=== PATIENT | male | born 1955 | race Two or more races ===

== ENCOUNTER 2025-01-17 06:13 | Inpatient (IN) | payer OTHER ==
[~2025-01-17] VITALS: Ht 190.5 cm; Wt 108.9 kg
[2025-01-17] VITALS (7 sets, daily range): BP systolic 95–112; BP diastolic 64–71; PULSE 77–85; RESP 15–20; TEMP 97.6–98.6; O2SAT 92–98
[2025-01-17] MEDS: TRANEXAMIC ACID 20 ML ONE (05:57)
[2025-01-17] MEDS: KETOROLAC TROMETH 30 MG/ML 1ML VIAL ONE (05:57)
[2025-01-17] MEDS: VANCOMYCIN HCL 1000 MG VL ONE (05:57)
[2025-01-17] MEDS: ceFAZolin 2 GM/D5W100ml 100 ML IV ONE (06:03)
[~2025-01-17 06:13] MED LIST: ACET-1304 PO; ASPI325T6 PO; BACL10TA PO; ISOS1TAB28 PO; MAGN400T40 OR; METO25TA36 PO; MULT-1018 OR; NIAC500T89 OR; PAR20T PO; ROSU20TA14 PO; [UNRECOGNIZED DRUG - CODE] PO; [UNRECOGNIZED DRUG - CODE] SC
[2025-01-17] MEDS: CEFEPIME 1GM/ 50ML 50 ML IV ONE (06:19)
[2025-01-17] MEDS: BUPIVACAINE 0.25% INJ 50ML VIAL ONE (06:19)
[2025-01-17] MEDS ORDERED: EPINEPHrine HCL 1 MG/1 ML AMP ONE (06:23)
[2025-01-17] MEDS ORDERED: DexAMETHasone SOD PHOS 10MG/1ML VIAL INJ ONE (06:23)
[2025-01-17] MEDS ORDERED: ONDANSETRON HCL 4 MG/2 ML VIAL ONE (06:23)
[2025-01-17] MEDS ORDERED: KETOROLAC TROMETH 30 MG/ML 1ML VIAL ONE (06:23)
[2025-01-17] MEDS ORDERED: PROPOFOL 10 MG/ML 20 ML IV ONE ×2 (06:24→07:39)
[2025-01-17] MEDS ORDERED: GLYCOPYRROLATE 0.2 MG/ML 1ML VIAL ONE (06:24)
[2025-01-17] MEDS ORDERED: KETAMINE 50mg/ML 1ml syringe ONE (06:25)
[2025-01-17] MEDS: GABAPENTIN 400 MG CAP PO ONE (06:45)
[2025-01-17] MEDS: ACETAMINOPHEN IV 1000 MG/100ML (10MG/ML) IV ONE (06:45)
[2025-01-17] MEDS: CELECOXIB 100 MG CAP PO ONE (06:45)
[2025-01-17] MEDS ORDERED: ePHEDrine SULFATE 50 MG/ML AMP ONE (06:46)
[2025-01-17] MEDS ORDERED: MORPHINE SULF PF 5 MG/10 ML VIAL ONE (06:58)
[2025-01-17] MEDS ORDERED: LIDOCAINE 1% INJ PF 5ML AMP ONE (07:28)
[2025-01-17] MEDS ORDERED: ONDANSETRON HCL 4 MG/2 ML VIAL IV PRN ×2 (09:30→10:15)
--- NOTE | 2025-01-17 09:40 | DVHOP2 ---
Operative Report - 2 Report Details Date: 01/17/25 Preop Diagnosis: Right hip degenerative arthritis Postop Diagnosis: Right hip degenerative arthritis Surgeon: Luis Robb MD Bag Machine Operator Helper: Silvia FRANCO Anesthesiologist: Greg Dong CRNA Anesthesia: Regional Drains: Jagruti closed wound suction Implant: DonJoy size 13 stem 0 neck length with 54 acetabular shell, one acetabular screw and flat liner Consent: The patient was informed of the risks and benefits of the procedure. These include but are not limited to complications of anesthesia, postoperative infection, incomplete relief of symptoms, recurrence of symptoms, damage to blood vessels, nerves and tendons, deep venous thrombosis, pulmonary embolism and possible need for repeat surgery in the future. Complications: None Estimated Blood Loss: 200 cc Fluids: See anesthesia record Findings: Denuded cartilage with eburnated bone, osteophytes Indications for Surgery: Right hip degenerative arthritis with severe pain and functional impairment despite nonoperative management Name of Procedure Performed Right total hip arthroplasty Procedure Details Procedure Details: The patient was brought to the operating room and given spinal anesthetic with adequate analgesia obtained. The patient was positioned lateral decubitus with the operative side up, stabilized with hip positioners. Axillary roll applied and lower extremities well-padded. Preop patient received IV Ancef, cefepime and IV tranexamic acid. Surgical timeout was performed verifying patient, laterality and procedure. The hip and lower extremity were prepped and draped in sterile fashion. Incision was made over the greater trochanter. Subcutaneous dissection and hemostasis were performed with Bovie and aqua mantis. I identified the fascia which was incised with Bovie and Charnley retractor inserted. I identified the gluteus medius that was split at the junction of its anterior and middle thirds with Bovie then incised off the anterior greater trochanter. I incised the anterior gluteus minimus which was elevated off the capsule. I elevated the reflected head of the rectus. I then performed anterior capsulectomy with Bovie. I extended capsular incision posterior medially and superior laterally. The head was dislocated. Femoral neck cut was made with saw and head removed. Head diameter was calipered on the back table. I adjusted retractors to expose the acetabulum. I circumferentially removed labral tissue with Bovie. I removed foveal tissue with Bovie, curette and rongeur. I then began reaming sequentially paying attention to inclination and version as I went. I trialed then tapped in the 54 acetabular shell. It was a little bit loose so I then drilled one of the superior holes, checked depth with depth gauge, and inserted a 20 mm acetabular screw with good bite achieved. I then brought up the flat liner which was spun to make sure there was no soft tissue entrapment then tapped in and stability verified. I then brought my attention to the proximal femur. The leg was placed in the sterile bag anteriorly. I cleaned up soft tissue at the greater trochanter shoulder with Bovie. I then used a rongeur to clip the lateral neck. I then used a box osteotome, canal finder and lateralizing rasp. I sequentially broached to size 13. I revised the femoral neck cut with calcar planer. I trialed which required using a minus four neck length. X-rays were obtained which verified good acetabular positioning as well as femoral stem size however did appear a bit long. The hip was dislocated and I removed the stem and head trials then tapped the broach down a little bit further used a calcar planer to revise the neck cut length then again reduced the hip and found it stable. I tapped in the femoral implant with good fixation achieved. I again trialed and decided on the 0 neck length for adequate stability. I cleaned and dried the Ray taper and tapped on the ceramic head. The hip was again reduced and tested for stability which was good. I irrigated with xperience. I placed a 2 grams of vancomycin in the deep and superficial wound. I repaired the minimus and medius to the anterior greater trochanter with #[5] FiberWire in running fashion . I oversewed the repair with 0 Vicryl. I repaired the fascia with #1 Ethibond interrupted [id number]. Deep subcutaneous tissue was closed with 0 Vicryl. Superficial subcutaneous tissue was closed with 2-0 Vicryl. The skin was closed with zeynep. I then applied the Jagruti closed wound suction. Patient tolerated the procedure well and was brought to the recovery room in stable condition. Condition Stable Disposition Still a Patient LUIS ROBB MD Jan 17, 2025 09:40
[2025-01-17] MEDS ORDERED: BACLOFEN 10 MG TAB PO PRN (09:45)
[2025-01-17] MEDS: PREGABALIN 25 MG CAP PO SCH (10:00)
[2025-01-17] MEDS: PARoxetine 20 MG TAB PO SCH (10:00)
[2025-01-17] MEDS ORDERED: ePHEDrine SULFATE 50 MG/ML AMP IV PRN (10:15)
[2025-01-17] MEDS: oxyCODONE HCL 5MG TAB PO ONE (10:15)
[2025-01-17] MEDS ORDERED: HYDROmorphone HCL 2 MG/ML VL/or syr IV PRN (10:15)
[2025-01-17] MEDS ORDERED: FLUMAZENIL 0.1 MG/ML INJ 10ML MDV IV PRN (10:15)
[2025-01-17] MEDS ORDERED: hydrALAZINE HCL 20 MG/ML VL IV PRN (10:15)
[2025-01-17] MEDS ORDERED: fentaNYL CITRATE 100 MCG/2 ML VL IV PRN (10:15)
[2025-01-17] MEDS ORDERED: NALOXONE HCL 0.4 MG/ML VIAL IV PRN (10:15)
--- NOTE | 2025-01-17 10:30 | DVH ---
CLINICAL INDICATION: postop TECHNIQUE: 1 radiographic views of the pelvis were obtained. Comparison: None FINDINGS/IMPRESSION: Postsurgical changes from right hip arthroplasty.
--- NOTE | 2025-01-17 10:32 | DVH ---
CLINICAL INDICATION: INTRAOP TECHNIQUE: XY R HIP 1V XRAY Comparison: None FINDINGS/IMPRESSION: : Intraoperative right hip arthroplasty.
--- NOTE | 2025-01-17 11:52 | ECG ---
[facility] Test Date: 2025-01-17 Test Time: 07:16:53 Pat Name: ELIZABETH HERNANDEZ Department: Room: 0274 A Gender: M Core Winding Operator: OBINNA : 1955 Requested By: LUIS ROBB Order Number: [id number] Reading MD: Asad Saab Measurements Intervals [place] Rate: 69 P: 71 OR: 232 QRS: 92 QRSD: 100 T: 25 QT: 438 QTc: 469 Interpretive Statements Sinus rhythm with 1st degree AV block with premature ventricular complexes or fusion complexes Rightward axis Low voltage QRS Septal infarct , age undetermined Electronically Signed On 01-18-2025 16:31:17 PDT by Asad Saab Please click the below link to view image of tracing.
[2025-01-17] MEDS: SODIUM CHLORIDE 0.9% 1,000 ML IV SCH (13:10)
[2025-01-17] MEDS: ACETAMINOPHEN 325 MG TAB PO SCH (13:17)
[2025-01-17] MEDS: oxyCODONE HCL 5MG TAB PO PRN ×2 (15:09→21:14)
[2025-01-17] MEDS: ceFAZolin 2 GM/D5W50ml 50 ML IV SCH (18:47)
[2025-01-17] MEDS: KETOROLAC TROMETH 30 MG/ML 1ML VIAL IV SCH (19:52)
[2025-01-18] VITALS: BP 117/71; PULSE 85; RESP 16; TEMP 98.9; O2SAT 94
[2025-01-18 05:00] VITALS: BP 112/67; PULSE 89; RESP 17; TEMP 98.6; O2SAT 95
[2025-01-18 06:41] LABS: Basophils # (auto) 0 10 ^3/uL (0-0.2); Basophils % (auto) 0.2 % (0.0-2.0); Eosinophils # (auto) 0 10 ^3/uL (0-0.8); Hematocrit 34.9 % (41.0-53.0); Hemoglobin 11.7 g/dL (13.5-17.5); Lymphocytes # (auto) 0.7 10 ^3/uL (0.4-5.4); Lymphocytes % (auto) 6.3 % (10.0-50.0); Mean Corpuscular Hemoglobin 30.5 pg (28.0-32.0); Mean Corpuscular Hgb Conc. 33.5 g/dL (32.0-36.0); Monocytes # (auto) 0.9 10 ^3/uL (0-1.3); Monocytes % (auto) 7.9 % (0.0-12.0); Neutrophils # (auto) 9.6 10 ^3/uL (1.6-8.6); Neutrophils % (auto) 85.6 % (37.0-80.0); Platelet Count (auto) 184 10^3/uL (140-450); Red Blood Cells 3.84 10^6/uL (4.5-5.90); Red Cell Distribution Width 14.4 % (11.8-14.3); White Blood Cell 11.2 10^3/uL (4.4-10.8)
[2025-01-18 06:55] LABS: Chloride 105 mmol/L (98-107); Sodium 137 mmol/L (136-145)
[2025-01-18 06:56] LABS: Anion Gap 7 (5-15); Calcium 9.3 mg/dL (8.7-10.4); Carbon Dioxide 25 mmol/L (20-31)
[2025-01-18 07:01] LABS: BUN/Creatinine Ratio 27.5 (10.0-20.0); Blood Urea Nitrogen 22 mg/dL (9-23)
[2025-01-18 07:06] LABS: Glucose 122 mg/dL (74-106)
[2025-01-18 08:00] VITALS: BP 120/69; PULSE 86; RESP 18; TEMP 98.6; O2SAT 96; O2SAT 98
[2025-01-18] MEDS: ISOSORBIDE MONONITRATE ER 60 MG TAB PO SCH (09:29)
[2025-01-18] MEDS: APIXABAN 2.5 MG TAB PO SCH (09:29)
--- NOTE | 2025-01-18 11:25 | DVHDS2 ---
Discharge Summary Date of Admission Jan 17, 2025 at 09:32 Date of Discharge: Jan 18, 2025 Labs/Diagnostic Data: Laboratory Results Test 01/18/25 05:58 01/17/25 13:03 White Blood Count 11.2 10^3/uL (4.4-10.8) Red Blood Count 3.84 10^6/uL (4.5-5.90) Hemoglobin 11.7 g/dL (13.5-17.5) Hematocrit 34.9 % (41.0-53.0) Mean Corpuscular Volume 91.0 fL (80.0-100.0) Mean Corpuscular Hemoglobin 30.5 pg (28.0-32.0) Mean Corpuscular Hemoglobin Concent 33.5 g/dL (32.0-36.0) Red Cell Distribution Width 14.4 % (11.8-14.3) Platelet Count 184 10^3/uL (140-450) Mean Platelet Volume 7.3 fL (6.9-10.8) Neutrophils (%) (Auto) 85.6 % (37.0-80.0) Lymphocytes (%) (Auto) 6.3 % (10.0-50.0) Monocytes (%) (Auto) 7.9 % (0.0-12.0) Eosinophils (%) (Auto) 0.0 % (0.0-7.0) Basophils (%) (Auto) 0.2 % (0.0-2.0) Neutrophils # (Auto) 9.6 10 ^3/uL (1.6-8.6) Lymphocytes # (Auto) 0.7 10 ^3/uL (0.4-5.4) Monocytes # (Auto) 0.9 10 ^3/uL (0-1.3) Eosinophils # (Auto) 0 10 ^3/uL (0-0.8) Basophils # (Auto) 0 10 ^3/uL (0-0.2) Nucleated Red Blood Cells 0.0 % Sodium Level 137 mmol/L (136-145) Potassium Level 4.0 mmol/L (3.5-5.1) Chloride Level 105 mmol/L (98-107) Carbon Dioxide Level 25 mmol/L (20-31) Anion Gap 7 (5-15) Blood Urea Nitrogen 22 mg/dL (9-23) Creatinine 0.80 mg/dL (0.700-1.30) Glomerular Filtration Rate Calc 97 mL/min (>90) BUN/Creatinine Ratio 27.5 (10.0-20.0) Serum Glucose 122 mg/dL (74-106) Calcium Level 9.3 mg/dL (8.7-10.4) Other Laboratory Tests 01/18/25 05:58 Brief Hx & Hospital Course: Patient was brought to the hospital yesterday to undergo a right total hip arthroplasty, he tolerated the procedure well without complications and was kept overnight for postoperative observation. Patient reports he has been experiencing some postoperative hip pain that is only minimally improved with the help of pain medication but reports that he was able to get up and walk with the help of physical therapy and his walker and was able to get to the nurse's station and back to his bed without issue. Patient denied any overnight events and has remained medically stable. Patient is ready to go home. Condition at Discharge: Stable Final Diagnosis/Problems List Right hip degenerative arthritis Discharge Disposition: Home Discharge Instruct/Medications Diet: Regular Activity: See Comment Activity comment: Advised patient to remain weight-bearing as tolerated with the assistance of a walker Follow Up/Referral: I instructed the patient to follow up with our office in 10-14 days for his 1st postoperative evaluation Medications: Rx sent via our outpatient EMR system Discharge Statement: "Patient was advised to return to the ER or call 911 if any headaches, dizziness, shortness of breath, chest pain, abdominal pain, bleeding, fevers, or worsening of medical condition. Patient was counseled about treatment plan, medications, possible side effects, patientverbalized understanding. All questions were answered to the best of my ability. This discharge took greater then 30 minutes in planning, reviewing documentation, counseling the patient, and discussing with other team members." ASSESSMENT ASSESSMENT Assessment Right hip degenerative arthritis JUDITH SOTO Jan 18, 2025 11:25
--- NOTE | 2025-01-18 11:27 | DVHPN2 ---
Progress Note - Dictate Date Seen: Jan 18, 2025 Medical Necessity Reason Pt with a Central, PICC or Fol: No Subjective Patient was lying comfortably in bed during my evaluation reports some postoperative hip pain that is being minimally improved with the help of pain medication. Patient reports that he was able to get up and walk with the help of physical therapy and walker and was able to get to the nurse's station and back to his bed with minimal issues. Patient is otherwise feeling well denying any other complaints or concerns during my evaluation and would like to go home. vital signs Vital Sign Date Time Temp Pulse Resp B/P (MAP) Pulse Ox O2 Delivery O2 Flow Rate FiO2 01/18/25 09:29 120/69 01/18/25 08:00 18 98 Room Air* 0 21 01/18/25 08:00 98.6 86 98.6 Total Intake and Output 01/17/25 01/17/25 01/18/25 15:00 23:00 07:00 Intake Total 1300 ml 1300 ml Output Total 550 ml 800 ml Balance 750 ml 500 ml medications Current Medications Medications Dose Ordered Sig/Julio Route Start Time Stop Time Status Last Admin Dose Admin Pregabalin 50 mg BID PO 01/17/25 10:00 01/18/25 10:31 50 MG Apixaban 2.5 mg BID PO 01/18/25 10:00 02/22/25 09:59 01/18/25 09:29 2.5 MG Sodium Chloride 1,000 ml @ 125 mls/hr Q8H IV 01/17/25 11:30 01/18/25 03:39 125 MLS/HR Acetaminophen 650 mg Q6HP PO 01/17/25 12:00 01/18/25 05:05 650 MG Ketorolac Tromethamine 15 mg Q6HR IV 01/17/25 12:00 01/22/25 11:59 01/18/25 05:05 15 MG Ondansetron HCl 4 mg Q4HP PRN IV 01/17/25 09:30 Oxycodone HCl 5 mg Q4HP PRN PO 01/17/25 11:30 01/17/25 21:14 5 MG Oxycodone HCl 10 mg Q4HP PRN PO 01/17/25 11:30 01/18/25 09:31 10 MG Baclofen 25 mg TID PRN PO 01/17/25 09:45 Paroxetine HCl 40 mg DAILY PO 01/17/25 10:00 01/18/25 09:29 40 MG Isosorbide Mononitrate 30 mg DAILY PO 01/18/25 10:00 01/18/25 09:29 30 MG Metoprolol Succinate 25 mg QPM PO 01/18/25 18:00 objective A&O x4 in no acute distress Hip range of motion grossly limited with pain on movement Jagruti dressing clean, dry, intact, and maintaining suction No distal edema or calf tenderness to palpation Neurovascularly intact with cap refill less than 2 seconds laboratory and microbiology Laboratory Tests 01/18/25 05:58 Test 01/18/25 05:58 Range/Units Serum Glucose 122 H 74-106 mg/dL Assessment/Plan Patient to be discharged home and advised to remain weight-bearing as tolerated with the assistance of a walker. I advised the patient to maintain his dressings clean, dry, intact, and maintaining suction and to follow up with our office in 10-14 days for his 1st postoperative evaluation. I also advised the patient to call our office if he has any questions or concerns. Rx sent via our outpatient EMR system. He understood and agreed. Plan discussed with: Patient JUDITH SOTO Jan 18, 2025 11:27
[2025-01-18 12:43] VITALS: BP 118/78; PULSE 95; RESP 17; TEMP 98.5; O2SAT 96
[2025-01-18 13:36] VITALS: BP 120/69; PULSE 86; TEMP 36.9; O2SAT 96
[2025-01-18] MEDS ORDERED: METOPROLOL SUCCINATE XL 50 MG TAB PO SCH (18:00)
[2025-01-19 10:59] LABS: Hepatitis B Surface Antigen Negative (Negative); Hepatitis C Antibody Negative (Negative)
== END 2025-01-18 14:40 | disposition home or self-care (01) | DRG 470 ==
LOC: SUR 06:13 → OVERFLOW 09:32 → WEST WING 11:34
PROVIDERS: ADMIT Orthopaedic Surgery; ATTEND Orthopaedic Surgery
PROC: 0SR90JZ Replacement of Right Hip Joint with Synthetic Substitute, Open Approach (ICD-10-PCS; principal; 2025-01-17 07:23)
DX: M16.11 Unilateral primary osteoarthritis, right hip (principal); M25.751 Osteophyte, right hip; Z96.641 Presence of right artificial hip joint
CPT/HCPCS: 36415; 72170; 73501; 80048; 85025; 86803; 86850; 86900; 86901; 87340; 93005; 97163; G0378; J0131; J0171; J1100; J1885; J2405; J2704; J3490

== ENCOUNTER 2025-03-01 06:21 | Inpatient (IN) | payer OTHER ==
[~2025-03-01] VITALS: Ht 190.5 cm; Wt 108.8 kg
[2025-03-01] VITALS (7 sets, daily range): BP systolic 52–121; BP diastolic 52–73; PULSE 68–96; RESP 14–18; TEMP 97.5–98.8; O2SAT 94–98
[~2025-03-01 06:21] MED LIST changes: +ACET600C5 PO; +GABA-1250 PO; +HAWT150C OR; +SULF400T11 PO
[2025-03-01] MEDS: GENTAMICIN SULFATE 0 ML ONE (06:47)
[2025-03-01] MEDS ORDERED: LIDOCAINE 1% INJ PF 5ML AMP ONE (06:50)
[2025-03-01] MEDS ORDERED: KETOROLAC TROMETH 30 MG/ML 1ML VIAL ONE ×2 (06:50→06:59)
[2025-03-01] MEDS ORDERED: GLYCOPYRROLATE 0.2 MG/ML 1ML VIAL ONE (06:50)
[2025-03-01] MEDS ORDERED: ONDANSETRON HCL 4 MG/2 ML VIAL ONE (06:50)
[2025-03-01] MEDS ORDERED: PROPOFOL 10 MG/ML 20 ML IV ONE ×5 (06:50→09:57)
[2025-03-01] MEDS ORDERED: EPINEPHrine HCL 1 MG/1 ML AMP ONE (06:50)
[2025-03-01] MEDS ORDERED: DexAMETHasone SOD PHOS 10MG/1ML VIAL INJ ONE (06:51)
[2025-03-01] MEDS: BUPIVACAINE W/ EPINEPH 0.5% INJ 50ML MDV IJ ONE (06:52)
[2025-03-01] MEDS ORDERED: MORPHINE SULF PF 5 MG/10 ML VIAL ONE (06:59)
[2025-03-01] MEDS: VANCOMYCIN HCL 1000 MG VL ONE ×2 (07:03→09:00)
[2025-03-01] MEDS: ROPIVACAINE 0.5% (5MG/ML) 20ML AMPULE IJ ONE (07:06)
[2025-03-01] MEDS: GABAPENTIN 300 MG CAP PO ONE (07:12)
[2025-03-01] MEDS: CELECOXIB 100 MG CAP PO ONE (07:12)
[2025-03-01] MEDS: ACETAMINOPHEN IV 1000 MG/100ML (10MG/ML) IV ONE (07:12)
[2025-03-01] MEDS: TRANEXAMIC ACID 20 ML ONE (07:30)
[2025-03-01] MEDS ORDERED: TOBRAMYCIN PER PHARMACY 0 ML IV SCH (07:30)
[2025-03-01] MEDS ORDERED: ePHEDrine SULFATE 50 MG/ML AMP ONE (07:46)
[2025-03-01] MEDS: ceFAZolin 2 GM/D5W50ml 50 ML IV ONE (08:25)
[2025-03-01] MEDS: CEFEPIME 1GM/ 50ML 50 ML IV ONE (08:30)
[2025-03-01] MEDS ORDERED: ESMOLOL HCL 10 ML IV ONE (09:30)
[2025-03-01] MEDS ORDERED: fentaNYL CITRATE 100 MCG/2 ML VL ONE (09:47)
--- NOTE | 2025-03-01 10:16 | DVHOP2 ---
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 These include but are not limited to complications of anesthesia, postoperative infection, incomplete relief of symptoms, recurrence of symptoms, damage to blood vessels, nerves and tendons, deep venous thrombosis, pulmonary embolism and possible need for repeat surgery in the future. Complications: None Estimated Blood Loss: 500 cc Fluids: See anesthesia record Findings: Patient had a previously diagnosed disruption of the IT band repair. There was no obvious visible signs of infection though previous seroma culture was positive for MRSA. He did have 30 or 40 cc of seroma serosanguineous. Partial disruption of the abductor repair. Indications for Surgery: Right hip prosthetic infection by culture as well as previous diagnosed IT band disruption. Name of Procedure Performed Excisional debridement right hip to bone level. Revision of femoral head and acetabular liner. Placement of antibiotic beads. Procedure Details Procedure Details: Patient was brought to the operating room where he was given spinal anesthetic. Adequate analgesia achieved. Preop patient received 2 g IV tranexamic acid. He was transferred to the lateral decubitus position with the right hip up. Position stabilized with hip positioners. Axillary roll applied lower extremities well padded. The right hip and lower extremity were prepped and draped in sterile fashion. Surgical time-out was performed verifying patient, laterality and procedure. Deneen were removed. Skin incision was made utilizing the previous incision. As stated above about 30 40 cc of serosanguineous seroma extruded. Superficial swab for culture was obtained. I sharply excised the skin edges with scalpel. I then did meticulous dissection and excisional debridement of the subcutaneous tissue off the underlying fascia danna with Bovie, scissors and blunt dissection. Sutures were removed as encountered. I dissected both superficially and deep to the fascia danna. Once adequate mobilization was achieved I inserted the Charnley retractor. I then identified the partial tear of the repair at the abductor and suture was removed. I sharply excised the edges of the disrupted gluteus with Bovie. The hip was dislocated and the head exposed. Head was knocked off with tapped. I then adjusted retractors to obtain access to the acetabular and with meticulous and tedious dissection and debridement I used Bovie, scissors, and scalpel to remove tissue deep to the abductor at the acetabulum. Deep soft tissue and prosthetic swabs for culture were obtained. I then irrigated copiously with normal saline Pulsavac lavage followed by use of back to search antibacterial solution. I thoroughly scrubbed the surfaces of both the femoral stem and acetabular shell. I then placed a clean lap in the wound and then redraped the hip and thigh with a clean drape as well as over wrapping the lower extremity with Coban. We set aside the initial instruments used for debridement and then brought up a fresh set of instruments which were not contaminated. We changed gown and gloves as well. I then brought my attention to exposure of the acetabulum and applied the acetabular liner after proving that the acetabulum was secure. I tapped it in and verified stability. I then brought my attention to the femoral neck and head I cleaned and dried the Ray taper and tapped the tapped on the femoral head. The hip was reduced and was stable to adduction, external rotation. It was also stable to testing of flexion internal rotation external rotation. I then applied the antibiotic beads that had been prepared on the back table with vancomycin and tobramycin to the deep joint. I repaired the abductor with 5. FiberWire in running fashion and oversewed the repair with 0 Vicryl interrupted. I repaired the fascia danna with 1. Ethibond interrupted [id number]. I inserted the Hemovac which was exited out the lateral thigh with the spike. I closed the deep subQ with 0 Vicryl and superficial subQ with 2-0 Vicryl and skin with deneen and applied a Prevena closed wound suction. Patient tolerated the procedure well was brought to recovery room in stable condition Specimen: Culture swabs were obtained at the superficial deep and prosthetic level and sent for Gram stain, aerobic and anaerobic cultures Condition Stable Disposition Still a Patient LUIS ROBB MD Mar 01, 2025 10:16
[2025-03-01] MEDS ORDERED: ONDANSETRON HCL 4 MG/2 ML VIAL IV PRN ×2 (10:30→10:45)
[2025-03-01] MEDS ORDERED: VANCOMYCIN PER PHARMACY 0 MG IV SCH (10:30)
[2025-03-01] MEDS ORDERED: BACLOFEN 10 MG TAB PO PRN (10:30)
[2025-03-01] MEDS ORDERED: NITROGLYCERIN 0.4 MG SL TAB SL PRN (10:30)
[2025-03-01] MEDS ORDERED: MORPHINE SULFATE INJ 2 MG/ml SYRG IV PRN (10:30)
[2025-03-01] MEDS ORDERED: FLUMAZENIL 0.1 MG/ML INJ 10ML MDV IV PRN (10:45)
[2025-03-01] MEDS ORDERED: hydrALAZINE HCL 20 MG/ML VL IV PRN (10:45)
[2025-03-01] MEDS ORDERED: HYDROmorphone HCL 2 MG/ML VL/or syr IV PRN (10:45)
[2025-03-01] MEDS ORDERED: NALOXONE HCL 0.4 MG/ML VIAL IV PRN (10:45)
[2025-03-01] MEDS ORDERED: oxyCODONE HCL 5MG TAB PO PRN ×2 (10:45→11:30)
[2025-03-01] MEDS ORDERED: fentaNYL CITRATE 100 MCG/2 ML VL IV PRN (10:45)
--- NOTE | 2025-03-01 11:22 | DVH ---
CLINICAL INDICATION: postop TECHNIQUE: XY PELVIS AP Comparison: XY PELVIS AP on DOS: 01/17/25 FINDINGS/IMPRESSION: : There is no evidence of acute fracture or dislocation. Right hip arthroplasty. Antibiotic seeds in the right hip joint space. Drainage catheter overlies the soft-tissue of the righ t hip.
[2025-03-01] MEDS: ACETAMINOPHEN 325 MG TAB PO SCH (12:00)
[2025-03-01] MEDS: ePHEDrine SULFATE 50 MG/ML AMP IV PRN (12:10)
[2025-03-01 13:44] LABS: Basophils # (auto) 0 10 ^3/uL (0-0.2); Basophils % (auto) 0.4 % (0.0-2.0); Eosinophils # (auto) 0.1 10 ^3/uL (0-0.8); Eosinophils % (auto) 1.3 % (0.0-7.0); Hematocrit 29.8 % (41.0-53.0); Hemoglobin 10.1 g/dL (13.5-17.5); Lymphocytes # (auto) 0.5 10 ^3/uL (0.4-5.4); Lymphocytes % (auto) 5.8 % (10.0-50.0); Mean Corpuscular Hemoglobin 30.4 pg (28.0-32.0); Mean Corpuscular Hgb Conc. 33.7 g/dL (32.0-36.0); Mean Corpuscular Volume 90.1 fL (80.0-100.0); Monocytes # (auto) 0.2 10 ^3/uL (0-1.3); Monocytes % (auto) 2.5 % (0.0-12.0); Neutrophils # (auto) 7.8 10 ^3/uL (1.6-8.6); Platelet Count (auto) 226 10^3/uL (140-450); Red Blood Cells 3.31 10^6/uL (4.5-5.90); White Blood Cell 8.7 10^3/uL (4.4-10.8)
[2025-03-01 14:00] LABS: INR 1.02 (0.9-1.15); Partial Thromboplastin Time 27.1 SEC (24.5-34.5); Prothrombin Time 10.8 sec (9.3-11.8)
[2025-03-01] MEDS: ceFAZolin 2 GM/D5W50ml 50 ML IV SCH (15:03)
[2025-03-01] MEDS: SODIUM CHLORIDE 0.9% 1,000 ML IV SCH (15:08)
[2025-03-01] MEDS: METOPROLOL SUCCINATE XL 50 MG TAB PO SCH (17:56)
[2025-03-01] MEDS ORDERED: PATIENTS OWN MEDICATION (Metoprolol Succinate (Toprol Xl) 25 MG) PO SCH (18:00)
[2025-03-01] MEDS ORDERED: VANCOMYCIN 1.5GM/300ML 300 ML IV SCH (21:00)
[2025-03-01] MEDS: VANCOMYCIN 1.5GM/300ML 300 ML IV SCH (23:34)
[2025-03-02] VITALS (8 sets, daily range): BP systolic 101–127; BP diastolic 56–69; PULSE 81–103; RESP 18–20; TEMP 97.9–99; O2SAT 96–100
[2025-03-02 05:32] LABS: Basophils # (auto) 0 10 ^3/uL (0-0.2); Basophils % (auto) 0.1 % (0.0-2.0); Eosinophils # (auto) 0 10 ^3/uL (0-0.8); Eosinophils % (auto) 0.1 % (0.0-7.0); Hematocrit 26.6 % (41.0-53.0); Lymphocytes # (auto) 0.8 10 ^3/uL (0.4-5.4); Lymphocytes % (auto) 10.4 % (10.0-50.0); Mean Corpuscular Hemoglobin 30.6 pg (28.0-32.0); Mean Corpuscular Hgb Conc. 33.9 g/dL (32.0-36.0); Monocytes # (auto) 0.8 10 ^3/uL (0-1.3); Monocytes % (auto) 10.8 % (0.0-12.0); Neutrophils % (auto) 78.6 % (37.0-80.0); Platelet Count (auto) 227 10^3/uL (140-450); Red Blood Cells 2.96 10^6/uL (4.5-5.90); Red Cell Distribution Width 14.2 % (11.8-14.3); White Blood Cell 7.6 10^3/uL (4.4-10.8)
[2025-03-02 05:40] LABS: Chloride 105 mmol/L (98-107); Potassium 4.6 mmol/L (3.5-5.1); Sodium 138 mmol/L (136-145)
[2025-03-02 05:42] LABS: Anion Gap 8 (5-15); Calcium 9.5 mg/dL (8.7-10.4); Carbon Dioxide 25 mmol/L (20-31)
[2025-03-02 05:47] LABS: BUN/Creatinine Ratio 21.6 (10.0-20.0); Blood Urea Nitrogen 16 mg/dL (9-23)
[2025-03-02 05:58] LABS: Glucose 115 mg/dL (74-106)
[2025-03-02] MEDS ORDERED: PATIENTS OWN MEDICATION (Isosorbide Mononitrate (Isosorbide Mononitrate Er) 30 MG) PO SCH (10:00)
[2025-03-02] MEDS ORDERED: METOPROLOL SUCCINATE XL 50 MG TAB PO SCH (10:00)
[2025-03-02] MEDS: PARoxetine 20 MG TAB PO SCH (10:56)
[2025-03-02] MEDS: GABAPENTIN 300 MG CAP PO SCH (10:57)
[2025-03-02] MEDS: ISOSORBIDE MONONITRATE ER 60 MG TAB PO SCH (10:57)
--- NOTE | 2025-03-02 12:22 | DVHPN2 ---
Progress Note - Dictate Date Seen: Mar 02, 2025 Medical Necessity Reason Pt with a Central, PICC or Fol: Yes The following are medically ne: Miranda Catheter Subjective Patient was lying comfortably in bed during my evaluation and reports some postoperative hip pain that is somewhat improved with the help of pain medication but notes that he has only been receiving Tylenol so his pain has been high intensity in limiting his physical activity. Patient reports that he has not yet gotten up and walked with physical therapy as of today. Patient reports that he had his wound VAC drained this morning and spoke with the patient's nurse who reports that his wound VAC was drained with a approximately 135 mL of serosanguineous fluid. Patient is otherwise feeling well denying any other complaints or concerns during my evaluation. vital signs Vital Sign Date Time Temp Pulse Resp B/P (MAP) Pulse Ox O2 Delivery O2 Flow Rate FiO2 03/02/25 10:57 127/67 03/02/25 09:00 98.2 85 18 97 98.2 03/02/25 08:20 Nasal Cannula* 2 28 Total Intake and Output 03/01/25 03/01/25 03/02/25 15:00 23:00 07:00 Intake Total 120 ml 425 ml 1205 ml Output Total 535 ml 1100 ml Balance -415 ml 425 ml 105 ml medications Current Medications Medications Dose Ordered Sig/Julio Route Start Time Stop Time Status Last Admin Dose Admin Oxycodone HCl 10 mg ONCE PRN PO 03/01/25 10:45 Baclofen 25 mg TID PRN PO 03/01/25 10:30 Gabapentin 900 mg DAILY PO 03/02/25 10:00 03/02/25 10:57 900 MG Paroxetine HCl 40 mg DAILY PO 03/02/25 10:00 03/02/25 10:56 40 MG Patient Own Medication 30 mg DAILY PO 03/02/25 10:00 UNV Patient Own Medication 25 mg QPM PO 03/01/25 18:00 UNV Sodium Chloride 1,000 ml @ 125 mls/hr Q8H IV 03/01/25 11:30 03/02/25 05:49 125 MLS/HR Acetaminophen 650 mg Q6HP PO 03/01/25 12:00 03/02/25 05:46 650 MG Ondansetron HCl 4 mg Q4HP PRN IV 03/01/25 10:30 Oxycodone HCl 5 mg Q4HP PRN PO 03/01/25 11:30 Oxycodone HCl 10 mg Q4HP PRN PO 03/01/25 11:30 Nitroglycerin 0.4 mg Q5MINP PRN SL 03/01/25 10:30 Morphine Sulfate 2 mg Q30M PRN IV 03/01/25 10:30 Vancomycin HCl 0 ml @ 0 mls/hr UD IV 03/01/25 10:30 Rifampin 600 mg DAILY PO 03/02/25 10:00 Isosorbide Mononitrate 30 mg DAILY PO 03/02/25 10:00 03/02/25 10:57 30 MG Metoprolol Succinate 25 mg QPM PO 03/01/25 18:00 Vancomycin HCl 300 ml @ 200 mls/hr Q12H IV 03/01/25 23:30 03/02/25 11:02 200 MLS/HR objective A&O x4 in no acute distress Hip range of motion grossly limited with pain on movement Prevena dressing clean, dry, intact, and maintaining suction Wound VAC inappropriate position with approximately 50 mL of serosanguineous fluid in the canister No distal edema or calf tenderness to palpation Neurovascularly intact with cap refill less than 2 seconds laboratory and microbiology Laboratory Tests 03/02/25 05:00 Test 03/02/25 05:00 Range/Units Serum Glucose 115 H 74-106 mg/dL Assessment/Plan Continue current management as well as pain control and renewed oxycodone for pain management. Patient currently pending PICC line consultation as well as Infectious Disease consultation. Continue with current IV antibiotics and rifampin by mouth. Advised patient to remain weight-bearing as tolerated with the assistance of a walker. We will reconvene with the patient tomorrow for further evaluation and monitoring of his condition. Plan discussed with: Patient SOTOSRAVANGARTH FRANCO Mar 02, 2025 12:22
[2025-03-02] MEDS: rifAMPin 300 MG CAP PO SCH (12:48)
[2025-03-02] MEDS: oxyCODONE HCL 5MG TAB PO PRN (13:04)
[2025-03-02 13:18] LABS: Chloride 104 mmol/L (98-107); Sodium 138 mmol/L (136-145)
[2025-03-02 13:19] LABS: Anion Gap 7 (5-15); Carbon Dioxide 27 mmol/L (20-31)
[2025-03-02 13:20] LABS: Calcium 9.5 mg/dL (8.7-10.4)
[2025-03-02 13:25] LABS: BUN/Creatinine Ratio 15.1 (10.0-20.0); Blood Urea Nitrogen 13 mg/dL (9-23); Glucose 110 mg/dL (74-106)
--- NOTE | 2025-03-02 15:17 | DVHINCON2 ---
Date Seen: Mar 02, 2025 Referring Physician Orthopedic spine surgery. Reason for Consultation Medical management. History of Present Illness 69-year-old male with a known history of hypertension, dyslipidemia, sleep apnea currently on CPAP machine at home presented to the hospital for elective procedure. Patient had right total hip arthroplasty on January 17. Patient was started on Marcellus redness and pain found to have right hip prosthetic infection has been as high T event disruption. Patient was currently status post excisional debridement of the right hip with a revision of femoral head and acetabular liner with placement of antibiotic beads. Patient was currently complaining of minimal pain in the right hip. Patient was denies any fevers chills. Past Medical History Hypertension Dyslipidemia Sleep apnea on CPAP at night. Past Surgical History Status post right hip total arthroplasty Status post right total hip prosthetic infection status post revision of femoral head and ID repair Family History: Ischemic heart disease G8 MOTHER (53) Allergies: Coded Allergies: Amoxicillin (Unverified Adverse Reaction, Unknown, itching , 02/27/25) Clavulanic Acid (Unverified Adverse Reaction, Unknown, itching , 02/27/25) Home Meds Reported Medications Acetylcysteine (Nac) 600 Mg Cap, 600 MG PO DAILY, CAP 02/27/25 Crataegus Oxyacantha ([employer] (HAWTHORN) 150 Mg Cap, 150 MG OR DAILY, CAP 02/27/25 Sulfamethoxazole-Trimethoprim (Bactrim) 1 Tab Tab, 1 TAB PO BID, TAB 02/27/25 Gabapentin (Gabapentin) 300 Mg Cap, 900 MG PO DAILY, CAP 02/27/25 Grape Seed Extract (Lucoanthro (Grape Seed Extract) 30 Mg Cap, PO DAILY, CAP 01/13/25 Magnesium Oxide (MAGNESIUM OXIDE) 400 Mg Tab, OR DAILY, TAB 01/13/25 Multiple Vitamin (Multivitamins) Tab, 1 OR DAILY, TAB 01/13/25 Niacin (NIACIN ER) 500 Mg Tab, OR, TAB 01/13/25 Acetaminophen (Tylenol Extra Strength) 500 Mg Tab, 500 MG PO, TAB 01/13/25 Buprenorphine (Brixadi) 8 Mg/0.16 Ml Lauren, 8 MG SC, ML 01/13/25 Isosorbide Mononitrate (Isosorbide Mononitrate Er) 30 Mg Tab, 30 MG PO DAILY, TAB 01/13/25 Paroxetine (PAXIL TABLET) 20 Mg Tb, 40 MG PO DAILY, TAB 01/13/25 Rosuvastatin Calcium (Crestor) 20 Mg Tab, 20 MG PO DAILY, TAB 01/13/25 Metoprolol Succinate (Toprol Xl) 25 Mg Tab, 25 MG PO QPM, TAB 01/13/25 Baclofen (Baclofen) 10 Mg Tab, 25 MG PO TID PRN for 5, TAB 01/13/25 Aspirin (Aspirin) 325 Mg Tab, 325 MG PO DAILY, TAB 01/13/25 Current Medications Current Medications Medications (Trade) Dose Ordered Sig/Julio Route PRN Reason Start Time Stop Time Status Last Admin Gabapentin (Neurontin Capsule) 900 mg DAILY PO 03/02/25 10:00 03/02/25 10:57 Paroxetine HCl (Paxil Tablet) 40 mg DAILY PO 03/02/25 10:00 03/02/25 10:56 Patient Own Medication 30 mg DAILY PO 03/02/25 10:00 UNV Patient Own Medication 25 mg QPM PO 03/01/25 18:00 UNV Rifampin 600 mg DAILY PO 03/02/25 10:00 03/02/25 12:48 Isosorbide Mononitrate (Imdur Er Tablet) 30 mg DAILY PO 03/02/25 10:00 03/02/25 10:57 Metoprolol Succinate (Toprol Xl) 25 mg DAILY PO 03/02/25 10:00 03/01/25 11:27 DC Metoprolol Succinate (Toprol Xl) 25 mg QPM PO 03/01/25 18:00 Vancomycin HCl 300 ml @ 200 mls/hr Q12H IV 03/01/25 21:00 03/01/25 23:10 DC Vancomycin HCl 300 ml @ 200 mls/hr Q12H IV 03/01/25 23:30 03/02/25 11:02 Review of Systems 12 review of system were negative except mentioned above. 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 motor deficit Labs/Diagnostic Data Labs Test 03/02/25 12:54 03/02/25 05:00 03/01/25 13:26 Range/Units Sodium Level 138 136-145 mmol/L Potassium Level 4.0 3.5-5.1 mmol/L Chloride Level 104 98-107 mmol/L Carbon Dioxide Level 27 20-31 mmol/L Anion Gap 7 5-15 Blood Urea Nitrogen 13 9-23 mg/dL Creatinine 0.86 0.700-1.30 mg/dL Glomerular Filtration Rate Calc 95 >90 mL/min BUN/Creatinine Ratio 15.1 10.0-20.0 Serum Glucose 110 H 74-106 mg/dL Calcium Level 9.5 8.7-10.4 mg/dL White Blood Count 7.6 4.4-10.8 10^3/uL Red Blood Count 2.96 L 4.5-5.90 10^6/uL Hemoglobin 9.0 L 13.5-17.5 g/dL Hematocrit 26.6 #L 41.0-53.0 % Mean Corpuscular Volume 90.0 80.0-100.0 fL Mean Corpuscular Hemoglobin 30.6 28.0-32.0 pg Mean Corpuscular Hemoglobin Concent 33.9 32.0-36.0 g/dL Red Cell Distribution Width 14.2 11.8-14.3 % Platelet Count 227 140-450 10^3/uL Mean Platelet Volume 7.0 6.9-10.8 fL Neutrophils (%) (Auto) 78.6 37.0-80.0 % Lymphocytes (%) (Auto) 10.4 10.0-50.0 % Monocytes (%) (Auto) 10.8 0.0-12.0 % Eosinophils (%) (Auto) 0.1 0.0-7.0 % Basophils (%) (Auto) 0.1 0.0-2.0 % Neutrophils # (Auto) 6.0 1.6-8.6 10 ^3/uL Lymphocytes # (Auto) 0.8 0.4-5.4 10 ^3/uL Monocytes # (Auto) 0.8 0-1.3 10 ^3/uL Eosinophils # (Auto) 0 0-0.8 10 ^3/uL Basophils # (Auto) 0 0-0.2 10 ^3/uL Nucleated Red Blood Cells 0.0 % Prothrombin Time 10.8 9.3-11.8 sec Prothrombin Time INR 1.02 0.9-1.15 Activated Partial Thromboplast Time 27.1 24.5-34.5 SEC Microbiology Date/Time Source Procedure Growth Status 03/01/25 08:15 Hip Right Gram Stain - Final Resulted 03/01/25 08:15 Hip Right Anaerobic Culture - Preliminary Resulted 03/01/25 08:15 Hip Right Aerobic Culture - Preliminary Resulted Assessment 69-year-old male with a known history of hypertension, dyslipidemia, anxiety disorder, sleep apnea currently on CPAP at night, status post right total hip arthroplasty for right degenerative joint disease on01/17, status post right hip prosthetic infection was admitted for elective procedure. 1. Hypertension controlled 2. Dyslipidemia 3. Anxiety disorder 4. Sleep apnea currently CPAP at night and while asleep 5. 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 Patient had a previously diagnosed disruption of the IT band repair. There was no obvious visible signs of infection though previous seroma culture was positive for MRSA. He did have 30 or 40 cc of seroma serosanguineous. Partial disruption of the abductor repair. Indications for Surgery: Right hip prosthetic infection by culture as well as previous diagnosed IT band disruption. Name of Procedure Performed Excisional debridement right hip to bone level. Revision of femoral head and acetabular liner. Placement of antibiotic beads Plan discussed with: Patient Date of Service: Mar 02, 2025 Billing Provider: NANDINI BUTLER MD Common Visit Codes: NOT BILLABLE NANDINI BUTLER MD Mar 02, 2025 15:17
--- NOTE | 2025-03-02 15:35 | DVHINCON2 ---
Date of service: Mar 02, [address] Dubose Reason for Consultation Prosthetic joint infection hip History of Present Illness Patient is a 69-year-old male presents to the hospital for elective procedure. Patient had right total hip arthroplasty on January 17. Patient found to have right hip prosthetic infection. He also has IT band disruption. Patient was currently status post excisional debridement of the right hip with a revision of femoral head and acetabular liner with placement of antibiotic beads. Reports some postoperative hip pain that is somewhat improved with the help of pain medication but notes that he has only been receiving Tylenol so his pain has been high intensity in limiting his physical activity. He denies any fevers or chills. Patient reports that he had his wound VAC drained this morning. According to nurse, his wound VAC was drained with a approximately 135 mL of serosanguineous fluid. Past Medical History Patient's past medical history is significant for Hypertension, Dyslipidemia and Sleep apnea on CPAP at night. Past Surgical History Status post right hip total arthroplasty. Status post right total hip prosthetic infection status post revision of femoral head and ID repair. Family History: Ischemic heart disease G8 MOTHER (53) Allergies: Coded Allergies: Amoxicillin (Unverified Adverse Reaction, Unknown, itching , 02/27/25) Clavulanic Acid (Unverified Adverse Reaction, Unknown, itching , 02/27/25) Home Meds Reported Medications Acetylcysteine (Nac) 600 Mg Cap, 600 MG PO DAILY, CAP 02/27/25 Crataegus Oxyacantha ([place] (HAWTHORN) 150 Mg Cap, 150 MG OR DAILY, CAP 02/27/25 Sulfamethoxazole-Trimethoprim (Bactrim) 1 Tab Tab, 1 TAB PO BID, TAB 02/27/25 Gabapentin (Gabapentin) 300 Mg Cap, 900 MG PO DAILY, CAP 02/27/25 Grape Seed Extract (Lucoanthro (Grape Seed Extract) 30 Mg Cap, PO DAILY, CAP 01/13/25 Magnesium Oxide (MAGNESIUM OXIDE) 400 Mg Tab, OR DAILY, TAB 01/13/25 Multiple Vitamin (Multivitamins) Tab, 1 OR DAILY, TAB 01/13/25 Niacin (NIACIN ER) 500 Mg Tab, OR, TAB 01/13/25 Acetaminophen (Tylenol Extra Strength) 500 Mg Tab, 500 MG PO, TAB 01/13/25 Buprenorphine (Brixadi) 8 Mg/0.16 Ml Lauren, 8 MG SC, ML 01/13/25 Isosorbide Mononitrate (Isosorbide Mononitrate Er) 30 Mg Tab, 30 MG PO DAILY, TAB 01/13/25 Paroxetine (PAXIL TABLET) 20 Mg Tb, 40 MG PO DAILY, TAB 01/13/25 Rosuvastatin Calcium (Crestor) 20 Mg Tab, 20 MG PO DAILY, TAB 01/13/25 Metoprolol Succinate (Toprol Xl) 25 Mg Tab, 25 MG PO QPM, TAB 01/13/25 Baclofen (Baclofen) 10 Mg Tab, 25 MG PO TID PRN for 5, TAB 01/13/25 Aspirin (Aspirin) 325 Mg Tab, 325 MG PO DAILY, TAB 01/13/25 Current Medications Current Medications Medications (Trade) Dose Ordered Sig/Julio Route PRN Reason Start Time Stop Time Status Last Admin Gabapentin (Neurontin Capsule) 900 mg DAILY PO 03/02/25 10:00 03/02/25 10:57 Paroxetine HCl (Paxil Tablet) 40 mg DAILY PO 03/02/25 10:00 03/02/25 10:56 Patient Own Medication 30 mg DAILY PO 03/02/25 10:00 UNV Patient Own Medication 25 mg QPM PO 03/01/25 18:00 UNV Rifampin 600 mg DAILY PO 03/02/25 10:00 03/02/25 12:48 Isosorbide Mononitrate (Imdur Er Tablet) 30 mg DAILY PO 03/02/25 10:00 03/02/25 10:57 Metoprolol Succinate (Toprol Xl) 25 mg DAILY PO 03/02/25 10:00 03/01/25 11:27 DC Metoprolol Succinate (Toprol Xl) 25 mg QPM PO 03/01/25 18:00 Vancomycin HCl 300 ml @ 200 mls/hr Q12H IV 03/01/25 21:00 03/01/25 23:10 DC Vancomycin HCl 300 ml @ 200 mls/hr Q12H IV 03/01/25 23:30 03/02/25 11:02 Review of Systems General: No Fever, chills, night sweats or weight loss HEENT: No Sinus pain, headache, vision changes or sore throat Respiratory: No Cough, dyspnea, sputum production Cardiovascular: No Chest pain, palpitations or leg edema Gastrointestinal: No Nausea, vomiting, diarrhea, abdominal pain Genitourinary: No Dysuria, urinary frequency, hematuria, pelvic pain Skin: No Rashes, ulcers, abscesses, redness or swelling Musculoskeletal: No Joint pain, muscle pain or swelling Neurologic: No Altered mental status, headaches or focal neurological deficits Psychiatric: No Anxiety, depression or confusion Vital Signs Vital Signs Date Time Temp Pulse Resp B/P (MAP) Pulse Ox O2 Delivery O2 Flow Rate FiO2 03/02/25 13:00 98.7 103 20 123/68 (86) 100 98.7 03/02/25 08:20 Nasal Cannula* 2 28 Physical Exam HEENT pupils are reactive Neck is supple CV is S1-S2 regular rate and rhythm Respiratory diminished breath sound bases GI posterior bowel sound Extremity: No edema. Right hip S/P revision of right hip arthroplasty. 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 Labs/Diagnostic Data Labs Test 03/02/25 12:54 03/02/25 05:00 03/01/25 13:26 Range/Units Sodium Level 138 136-145 mmol/L Potassium Level 4.0 3.5-5.1 mmol/L Chloride Level 104 98-107 mmol/L Carbon Dioxide Level 27 20-31 mmol/L Anion Gap 7 5-15 Blood Urea Nitrogen 13 9-23 mg/dL Creatinine 0.86 0.700-1.30 mg/dL Glomerular Filtration Rate Calc 95 >90 mL/min BUN/Creatinine Ratio 15.1 10.0-20.0 Serum Glucose 110 H 74-106 mg/dL Calcium Level 9.5 8.7-10.4 mg/dL White Blood Count 7.6 4.4-10.8 10^3/uL Red Blood Count 2.96 L 4.5-5.90 10^6/uL Hemoglobin 9.0 L 13.5-17.5 g/dL Hematocrit 26.6 #L 41.0-53.0 % Mean Corpuscular Volume 90.0 80.0-100.0 fL Mean Corpuscular Hemoglobin 30.6 28.0-32.0 pg Mean Corpuscular Hemoglobin Concent 33.9 32.0-36.0 g/dL Red Cell Distribution Width 14.2 11.8-14.3 % Platelet Count 227 140-450 10^3/uL Mean Platelet Volume 7.0 6.9-10.8 fL Neutrophils (%) (Auto) 78.6 37.0-80.0 % Lymphocytes (%) (Auto) 10.4 10.0-50.0 % Monocytes (%) (Auto) 10.8 0.0-12.0 % Eosinophils (%) (Auto) 0.1 0.0-7.0 % Basophils (%) (Auto) 0.1 0.0-2.0 % Neutrophils # (Auto) 6.0 1.6-8.6 10 ^3/uL Lymphocytes # (Auto) 0.8 0.4-5.4 10 ^3/uL Monocytes # (Auto) 0.8 0-1.3 10 ^3/uL Eosinophils # (Auto) 0 0-0.8 10 ^3/uL Basophils # (Auto) 0 0-0.2 10 ^3/uL Nucleated Red Blood Cells 0.0 % Prothrombin Time 10.8 9.3-11.8 sec Prothrombin Time INR 1.02 0.9-1.15 Activated Partial Thromboplast Time 27.1 24.5-34.5 SEC Microbiology Date/Time Source Procedure Growth Status 03/01/25 08:15 Hip Right Gram Stain - Final Resulted 03/01/25 08:15 Hip Right Anaerobic Culture - Preliminary Resulted 03/01/25 08:15 Hip Right Aerobic Culture - Preliminary Resulted Assessment Patient is a 69-year-old male with Right hip prosthetic joint infection Staphylococcus aureus infection Right hip Arthroplasty on January 17 Recommendations s/p removal of hardware and washout on 03/01. OR cx is growing prelim staphylococcus aureus; follow sensitivity Right hip Arthroplasty on January 17. Continue IV Vancomycin. goal trough 15-20. Monitor toxicity. dc rifampin oral follow blood cultures Ortho on board Antibiotic status: Vancomycin IV [Started on 03/01 - Ongoing] Rifampin PO [Given on 03/02] Review of culture: 03/01, OR culture preliminary showed staphylococcus aureus 03/01, Blood culture preliminary showed no growth 03/01, Pelvis x-ray showed There is no evidence of acute fracture or dislocation. Right hip arthroplasty. Antibiotic seeds in the right hip joint space. Drainage catheter overlies the soft-tissue of the right hip. Prognosis guarded Plan discussed with Dr. Dubose Thank you for consult Plan discussed with: HANNAH Lima MD Mar 02, 2025 15:35
[2025-03-02] MEDS: LIDOCAINE 1% (LOCAL ANESTH.) PF 5ml SDV ID ONE (17:15)
[2025-03-02] MEDS: SODIUM CHLOR 0.9% PF (SALINE LOCK) 10ML VIAL/SYR IV SCH (21:57)
[2025-03-03] VITALS (7 sets, daily range): BP systolic 105–137; BP diastolic 61–79; PULSE 63–93; RESP 15–18; TEMP 98.1–98.8; O2SAT 95–98
[2025-03-03] MEDS: BUPRENORPHINE 8 MG PO PRN (01:54)
--- NOTE | 2025-03-03 07:42 | DVHPN2 ---
Progress Note - Dictate Date Seen: Mar 03, 2025 Medical Necessity Reason Pt with a Central, PICC or Fol: Yes The following are medically ne: Miranda Catheter Subjective Patient was lying comfortably in bed during my evaluation and reports some postoperative hip pain that is being improved with the help of pain medication. Patient reports that he was able to get up and walk with the help of physical therapy and his walker and was able to get down the mcnally and back to his bed albeit with some continued stiffness. Patient reports that he had a PICC line placed yesterday without complications. Patient also reports that his wound VAC was emptied yesterday afternoon and was emptied with a proximally 100 mL of serosanguineous fluid this morning. Patient is otherwise feeling well denying any other complaints or concerns during my evaluation. vital signs Vital Sign Date Time Temp Pulse Resp B/P (MAP) Pulse Ox O2 Delivery O2 Flow Rate FiO2 03/03/25 05:00 98.4 90 18 117/69 (85) 96 98.4 03/02/25 20:00 Nasal Cannula* 2 28 Total Intake and Output 03/02/25 03/02/25 03/03/25 15:00 23:00 07:00 Intake Total 300 ml 1125 ml 1125 ml Output Total 2300 ml 2600 ml Balance 300 ml -1175 ml -1475 ml medications Current Medications Medications Dose Ordered Sig/Julio Route Start Time Stop Time Status Last Admin Dose Admin Baclofen 25 mg TID PRN PO 03/01/25 10:30 Gabapentin 900 mg DAILY PO 03/02/25 10:00 03/02/25 10:57 900 MG Paroxetine HCl 40 mg DAILY PO 03/02/25 10:00 03/02/25 10:56 40 MG Patient Own Medication 30 mg DAILY PO 03/02/25 10:00 UNV Patient Own Medication 25 mg QPM PO 03/01/25 18:00 UNV Sodium Chloride 1,000 ml @ 125 mls/hr Q8H IV 03/01/25 11:30 03/03/25 03:41 125 MLS/HR Acetaminophen 650 mg Q6HP PO 03/01/25 12:00 03/03/25 05:50 650 MG Ondansetron HCl 4 mg Q4HP PRN IV 03/01/25 10:30 Nitroglycerin 0.4 mg Q5MINP PRN SL 03/01/25 10:30 Morphine Sulfate 2 mg Q30M PRN IV 03/01/25 10:30 Vancomycin HCl 0 ml @ 0 mls/hr UD IV 03/01/25 10:30 Isosorbide Mononitrate 30 mg DAILY PO 03/02/25 10:00 03/02/25 10:57 30 MG Metoprolol Succinate 25 mg QPM PO 03/01/25 18:00 Vancomycin HCl 300 ml @ 200 mls/hr Q12H IV 03/01/25 23:30 03/02/25 22:53 200 MLS/HR Sodium Chloride 10 ml QSHIFT@10,22 IV 03/02/25 22:00 03/02/25 21:57 10 ML Patient Own Medication 1 DAILY PRN PO 03/02/25 19:15 03/03/25 01:54 1 objective A&O x4 in no acute distress Hip range of motion grossly limited with pain on movement Prevena dressing clean, dry, intact, and maintaining suction Wound VAC inappropriate position with approximately 0 mL of serosanguineous fluid in the canister as it was just emptied No distal edema or calf tenderness to palpation Neurovascularly intact with cap refill less than 2 seconds laboratory and microbiology Laboratory Tests 03/02/25 12:54 03/02/25 05:00 Test 03/02/25 12:54 Range/Units Serum Glucose 110 H 74-106 mg/dL Assessment/Plan Continue current management as well as pain control, oxycodone for pain management. Pending culture results. Continue with current IV antibiotics. Advised patient to remain weight-bearing as tolerated with the assistance of a walker. We will reconvene with the patient tomorrow for further evaluation and monitoring of his condition and likely removal of drain and potential discharged home once home IV antibiotics are set up as well as wound care with case management. Plan discussed with: Patient SOTO,JUDITH FRANCO Mar 03, 2025 07:42
[2025-03-03 08:22] LABS: Basophils # (auto) 0 10 ^3/uL (0-0.2); Eosinophils # (auto) 0.2 10 ^3/uL (0-0.8); Hemoglobin 8.2 g/dL (13.5-17.5); Nucleated Red Blood Cells % 0.1 %
[2025-03-03 08:24] LABS: Basophils % (auto) 0.8 % (0.0-2.0); Eosinophils % (auto) 3.6 % (0.0-7.0); Hematocrit 23.9 % (41.0-53.0); Lymphocytes # (auto) 1.3 10 ^3/uL (0.4-5.4); Lymphocytes % (auto) 25.3 % (10.0-50.0); Mean Corpuscular Hemoglobin 30.8 pg (28.0-32.0); Mean Corpuscular Hgb Conc. 34.3 g/dL (32.0-36.0); Mean Corpuscular Volume 89.8 fL (80.0-100.0); Monocytes # (auto) 0.6 10 ^3/uL (0-1.3); Monocytes % (auto) 11.3 % (0.0-12.0); Platelet Count (auto) 190 10^3/uL (140-450); Red Blood Cells 2.66 10^6/uL (4.5-5.90); Red Cell Distribution Width 14.7 % (11.8-14.3); White Blood Cell 5.1 10^3/uL (4.4-10.8)
--- NOTE | 2025-03-03 09:54 | DVHPN2 ---
Progress Note - Dictate Date Seen: Mar 03, 2025 Medical Necessity Reason Pt with a Central, PICC or Fol: Yes The following are medically ne: Miranda Catheter Subjective Patient reports some postoperative hip pain that is being improved with the help of pain medication. Patient reports that he was able to get up and walk with the help of physical therapy and his walker. vital signs Vital Sign Date Time Temp Pulse Resp B/P (MAP) Pulse Ox O2 Delivery O2 Flow Rate FiO2 03/03/25 05:00 98.4 90 18 117/69 (85) 96 98.4 03/02/25 20:00 Nasal Cannula* 2 28 Total Intake and Output 03/02/25 03/02/25 03/03/25 15:00 23:00 07:00 Intake Total 300 ml 1125 ml 1750 ml Output Total 2300 ml 2600 ml Balance 300 ml -1175 ml -850 ml medications Current Medications Medications Dose Ordered Sig/Julio Route Start Time Stop Time Status Last Admin Dose Admin Baclofen 25 mg TID PRN PO 03/01/25 10:30 Gabapentin 900 mg DAILY PO 03/02/25 10:00 03/02/25 10:57 900 MG Paroxetine HCl 40 mg DAILY PO 03/02/25 10:00 03/02/25 10:56 40 MG Patient Own Medication 30 mg DAILY PO 03/02/25 10:00 UNV Patient Own Medication 25 mg QPM PO 03/01/25 18:00 UNV Sodium Chloride 1,000 ml @ 125 mls/hr Q8H IV 03/01/25 11:30 03/03/25 03:41 125 MLS/HR Acetaminophen 650 mg Q6HP PO 03/01/25 12:00 03/03/25 05:50 650 MG Ondansetron HCl 4 mg Q4HP PRN IV 03/01/25 10:30 Nitroglycerin 0.4 mg Q5MINP PRN SL 03/01/25 10:30 Morphine Sulfate 2 mg Q30M PRN IV 03/01/25 10:30 Vancomycin HCl 0 ml @ 0 mls/hr UD IV 03/01/25 10:30 Isosorbide Mononitrate 30 mg DAILY PO 03/02/25 10:00 03/02/25 10:57 30 MG Metoprolol Succinate 25 mg QPM PO 03/01/25 18:00 Vancomycin HCl 300 ml @ 200 mls/hr Q12H IV 03/01/25 23:30 03/02/25 22:53 200 MLS/HR Sodium Chloride 10 ml QSHIFT@10,22 IV 03/02/25 22:00 03/02/25 21:57 10 ML Patient Own Medication 1 DAILY PRN PO 03/02/25 19:15 03/03/25 01:54 1 objective HEENT pupils are reactive Neck is supple CV is S1-S2 regular rate and rhythm Respiratory diminished breath sound bases GI posterior bowel sound Extremity no edema. S/P revision of right hip arthroplasty. 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 OR cx is growing prelim staphylococcus aureus; follow sensitivity Right hip Arthroplasty on January 17 2025 Continue IV Vancomycin. goal trough 15-20. Monitor toxicity. follow blood cultures He got PICC line, waiting for final cx Ortho on board Discussed with patient, there is always a chance of reinfection with MRSA as its a very sticky bug Antibiotic status: Vancomycin IV [Started on 03/01 - Ongoing] Rifampin PO [Given on 03/02] Review of culture: 03/01, OR culture preliminary showed staphylococcus aureus 03/01, Blood culture preliminary showed no growth 03/01, Pelvis x-ray showed There is no evidence of acute fracture or dislocation. Right hip arthroplasty. Antibiotic seeds in the right hip joint space. Drainage catheter overlies the soft-tissue of the right hip. Prognosis guarded discussed with dr Dubose Thank you for consult Plan discussed with: HANNAH Lima MD Mar 03, 2025 09:54
--- NOTE | 2025-03-03 15:43 | DVHPN2 ---
Subjective Overnight events noted. Patient wound culture just came back MRSA. 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 Medications Current Medications Medications Dose Ordered Sig/Julio Route Start Time Stop Time Status Last Admin Dose Admin Baclofen 25 mg TID PRN PO 03/01/25 10:30 Gabapentin 900 mg DAILY PO 03/02/25 10:00 03/03/25 10:13 900 MG Paroxetine HCl 40 mg DAILY PO 03/02/25 10:00 03/03/25 10:13 40 MG Patient Own Medication 30 mg DAILY PO 03/02/25 10:00 UNV Patient Own Medication 25 mg QPM PO 03/01/25 18:00 UNV Sodium Chloride 1,000 ml @ 125 mls/hr Q8H IV 03/01/25 11:30 03/03/25 10:16 125 MLS/HR Acetaminophen 650 mg Q6HP PO 03/01/25 12:00 03/03/25 11:38 650 MG Ondansetron HCl 4 mg Q4HP PRN IV 03/01/25 10:30 Nitroglycerin 0.4 mg Q5MINP PRN SL 03/01/25 10:30 Morphine Sulfate 2 mg Q30M PRN IV 03/01/25 10:30 Vancomycin HCl 0 ml @ 0 mls/hr UD IV 03/01/25 10:30 Isosorbide Mononitrate 30 mg DAILY PO 03/02/25 10:00 03/03/25 10:14 30 MG Metoprolol Succinate 25 mg QPM PO 03/01/25 18:00 Vancomycin HCl 300 ml @ 200 mls/hr Q12H IV 03/01/25 23:30 03/03/25 11:38 200 MLS/HR Sodium Chloride 10 ml QSHIFT@10,22 IV 03/02/25 22:00 03/03/25 10:14 10 ML Patient Own Medication 1 DAILY PRN PO 03/02/25 19:15 03/03/25 01:54 1 Laboratory Results Laboratory Tests 03/02/25 12:54 03/03/25 08:15 Microbiology Microbiology Date/Time Source Procedure Growth Status 03/01/25 21:55 Blood Blood Culture - Preliminary NO GROWTH AFTER 24 HOURS OF INCUBATION. 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 1. Hypertension controlled 2. Dyslipidemia 3. Anxiety disorder 4. Sleep apnea currently CPAP at night and while asleep 5. 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 Aguilar's office. -discharge plan in next 24 hours. Plan discussed with: Patient My Orders Orders - NANDINI BUTLER MD Procedure Category Date Status Time Us Guided Vascular US 03/02/25 Taken Access 17:08 Nursing Protocol Picc KEVON 03/02/25 In Process 17:08 Change Dressing Prn KEVON 03/02/25 In Process 17:08 Sodium Chloride Lock PHA 03/02/25 In Process (Saline Lock Ns) 22:00 Do Not Use Picc For KEVON 03/02/25 In Process Blood Cult 17:08 May Draw Blood From KEVON 03/02/25 In Process Picc 17:08 Ok To Use Picc KEVON 03/02/25 In Process 17:08 Change Picc Dressing KEVON 03/02/25 In Process Q7 Days 17:08 Patients Own PHA 03/02/25 In Process Medication 19:15 Date of Service: Mar 03, 2025 Billing Provider: NANDINI BUTLER MD Common Visit Codes: NOT BILLABLE NANDINI BUTLER MD Mar 03, 2025 15:43
[2025-03-03] MEDS: TOBRAMYCIN SULFATE 40 MG/ML 2ML VIAL IV ONE (21:07)
[2025-03-04 01:00] VITALS: BP 151/82; PULSE 19; RESP 19; TEMP 98.5; O2SAT 96
[2025-03-04 05:00] VITALS: BP 123/72; PULSE 75; RESP 18; TEMP 98.1; O2SAT 96
--- NOTE | 2025-03-04 07:10 | DVHPN2 ---
Progress Note - Dictate Date Seen: Mar 04, 2025 Medical Necessity Reason Pt with a Central, PICC or Fol: Yes The following are medically ne: Miranda Catheter Subjective Right hip drain output: Approximately 10 mL of red liquid. vital signs Vital Sign Date Time Temp Pulse Resp B/P (MAP) Pulse Ox O2 Delivery O2 Flow Rate FiO2 03/04/25 05:00 98.1 75 18 123/72 (89) 96 98.1 03/03/25 20:00 Room Air* 0 21 Total Intake and Output 03/03/25 03/03/25 03/04/25 15:00 23:00 07:00 Intake Total 1100 ml 1300 ml Output Total 450 ml 620 ml Balance 650 ml 680 ml medications Current Medications Medications Dose Ordered Sig/Julio Route Start Time Stop Time Status Last Admin Dose Admin Baclofen 25 mg TID PRN PO 03/01/25 10:30 Gabapentin 900 mg DAILY PO 03/02/25 10:00 03/03/25 10:13 900 MG Paroxetine HCl 40 mg DAILY PO 03/02/25 10:00 03/03/25 10:13 40 MG Patient Own Medication 30 mg DAILY PO 03/02/25 10:00 UNV Patient Own Medication 25 mg QPM PO 03/01/25 18:00 UNV Sodium Chloride 1,000 ml @ 125 mls/hr Q8H IV 03/01/25 11:30 03/03/25 10:16 125 MLS/HR Acetaminophen 650 mg Q6HP PO 03/01/25 12:00 03/04/25 05:56 650 MG Ondansetron HCl 4 mg Q4HP PRN IV 03/01/25 10:30 Nitroglycerin 0.4 mg Q5MINP PRN SL 03/01/25 10:30 Morphine Sulfate 2 mg Q30M PRN IV 03/01/25 10:30 Vancomycin HCl 0 ml @ 0 mls/hr UD IV 03/01/25 10:30 Isosorbide Mononitrate 30 mg DAILY PO 03/02/25 10:00 03/03/25 10:14 30 MG Metoprolol Succinate 25 mg QPM PO 03/01/25 18:00 03/03/25 18:56 25 MG Vancomycin HCl 300 ml @ 200 mls/hr Q12H IV 03/01/25 23:30 03/03/25 23:49 200 MLS/HR Sodium Chloride 10 ml QSHIFT@10,22 IV 03/02/25 22:00 03/03/25 23:49 10 ML Patient Own Medication 1 DAILY PRN PO 03/02/25 19:15 03/03/25 01:54 1 objective HEENT pupils are reactive Neck is supple CV is S1-S2 regular rate and rhythm Respiratory diminished breath sound bases GI posterior bowel sound Extremity no edema. S/P revision of right hip arthroplasty. 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 OR cx is growing MRSA Right hip Arthroplasty on January 17 2025 Continue IV Vancomycin. goal trough 15-20. Monitor toxicity. follow blood cultures He got PICC line Case management consult to arrange IV Vancomycin 1500 mg q12h for 6 weeks with goal trough 15-20. Pharmacy will manage vancomycin dosing. Weekly labs CBC with diff, CMP, ESR and Vancomycin Trough Ortho on board Follow up with ID in 2 weeks and Ortho in 1 week. 03/03, Vancomycin Trough is 16.0 Discussed with patient, there is always a chance of reinfection with MRSA as its a very sticky bug Antibiotic status: Vancomycin IV [Started on 03/01 - Ongoing] Rifampin PO [Given on 03/02] Review of culture: 03/01, OR culture showed MRSA 03/01, Blood culture preliminary showed no growth 03/01, Pelvis x-ray showed There is no evidence of acute fracture or dislocation. Right hip arthroplasty. Antibiotic seeds in the right hip joint space. Drainage catheter overlies the soft-tissue of the right hip. Prognosis guarded discussed with dr Dubose Thank you for consult Dietary Evaluation Review Comments: 1. Continue Regular diet as tolerated 2. Add trial of Ensure Enlive daily (provides 350 kcal, 20 gm pro) 3. Monitor wt trends, PO intake, post-op healing Expected Outcomes/Goals: Improved intakes, optimized nutritional status. Plan discussed with: HANNAH Lima MD Mar 04, 2025 07:10
[2025-03-04 09:00] VITALS: BP 115/66; PULSE 73; RESP 20; TEMP 98.2; O2SAT 97
--- NOTE | 2025-03-04 11:05 | DVHPN2 ---
Progress Note - Dictate Date Seen: Mar 04, 2025 Medical Necessity Reason Pt with a Central, PICC or Fol: Yes The following are medically ne: Miranda Catheter Subjective Patient was lying comfortably in bed during my evaluation and reports some postoperative hip pain that is being well managed with the help of pain medication. Patient reports that he was able to get up and walk with the help of physical therapy and his walker and was able to get down the mcnally around the nurses station and back to his bed with minimal issues. Patient also reports that his wound VAC was emptied this morning and was emptied with a proximally 50 mL of serosanguineous fluid this morning. Patient is otherwise feeling well denying any other complaints or concerns during my evaluation. vital signs Vital Sign Date Time Temp Pulse Resp B/P (MAP) Pulse Ox O2 Delivery O2 Flow Rate FiO2 03/04/25 05:00 98.1 75 18 123/72 (89) 96 98.1 03/03/25 20:00 Room Air* 0 21 Total Intake and Output 03/03/25 03/03/25 03/04/25 15:00 23:00 07:00 Intake Total 1100 ml 1300 ml Output Total 450 ml 620 ml Balance 650 ml 680 ml medications Current Medications Medications Dose Ordered Sig/Julio Route Start Time Stop Time Status Last Admin Dose Admin Baclofen 25 mg TID PRN PO 03/01/25 10:30 Gabapentin 900 mg DAILY PO 03/02/25 10:00 03/03/25 10:13 900 MG Paroxetine HCl 40 mg DAILY PO 03/02/25 10:00 03/03/25 10:13 40 MG Patient Own Medication 30 mg DAILY PO 03/02/25 10:00 UNV Patient Own Medication 25 mg QPM PO 03/01/25 18:00 UNV Sodium Chloride 1,000 ml @ 125 mls/hr Q8H IV 03/01/25 11:30 03/03/25 10:16 125 MLS/HR Acetaminophen 650 mg Q6HP PO 03/01/25 12:00 03/04/25 05:56 650 MG Ondansetron HCl 4 mg Q4HP PRN IV 03/01/25 10:30 Nitroglycerin 0.4 mg Q5MINP PRN SL 03/01/25 10:30 Morphine Sulfate 2 mg Q30M PRN IV 03/01/25 10:30 Vancomycin HCl 0 ml @ 0 mls/hr UD IV 03/01/25 10:30 Isosorbide Mononitrate 30 mg DAILY PO 03/02/25 10:00 03/03/25 10:14 30 MG Metoprolol Succinate 25 mg QPM PO 03/01/25 18:00 03/03/25 18:56 25 MG Vancomycin HCl 300 ml @ 200 mls/hr Q12H IV 03/01/25 23:30 03/03/25 23:49 200 MLS/HR Sodium Chloride 10 ml QSHIFT@10,22 IV 03/02/25 22:00 03/03/25 23:49 10 ML Patient Own Medication 1 DAILY PRN PO 03/02/25 19:15 03/03/25 01:54 1 objective A&O x4 in no acute distress Hip range of motion grossly limited with pain on movement Prevena dressing clean, dry, intact, and maintaining suction Wound VAC inappropriate position with approximately 50 mL of serosanguineous fluid in the canister Wound VAC drain pulled, well tolerated without complications No distal edema or calf tenderness to palpation Neurovascularly intact with cap refill less than 2 seconds laboratory and microbiology Laboratory Tests 03/04/25 05:58 03/03/25 08:15 03/02/25 12:54 Test 03/02/25 12:54 Range/Units Serum Glucose 110 H 74-106 mg/dL Assessment/Plan Continue current management as well as pain control, oxycodone for pain management. Pending culture results. Continue with current antibiotics. Advised patient to remain weight-bearing as tolerated with the assistance of a walker. Wound VAC drain pulled and placed 4 x 4 gauze and Tegaderm on exit site. We will reconvene with the patient tomorrow for further evaluation and monitoring of his condition and potential discharged home once home IV antibiotics are set up as well as wound care with case management. Dietary Evaluation Review Comments: 1. Continue Regular diet as tolerated 2. Add trial of Ensure Enlive daily (provides 350 kcal, 20 gm pro) 3. Monitor wt trends, PO intake, post-op healing Expected Outcomes/Goals: Improved intakes, optimized nutritional status. Plan discussed with: Patient JUDITH SOTO Mar 04, 2025 11:05
[2025-03-04 13:00] VITALS: BP 118/71; PULSE 79; RESP 20; TEMP 98.2; O2SAT 97
--- NOTE | 2025-03-04 14:03 | DVHPN2 ---
Subjective Overnight events noted. Patient wound culture just came back MRSA. IV antibiotics will be arranged until Thursday. 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 Medications Current Medications Medications Dose Ordered Sig/Julio Route Start Time Stop Time Status Last Admin Dose Admin Baclofen 25 mg TID PRN PO 03/01/25 10:30 Gabapentin 900 mg DAILY PO 03/02/25 10:00 03/04/25 12:20 900 MG Paroxetine HCl 40 mg DAILY PO 03/02/25 10:00 03/04/25 12:20 40 MG Patient Own Medication 30 mg DAILY PO 03/02/25 10:00 UNV Patient Own Medication 25 mg QPM PO 03/01/25 18:00 UNV Sodium Chloride 1,000 ml @ 125 mls/hr Q8H IV 03/01/25 11:30 03/04/25 11:30 125 MLS/HR Acetaminophen 650 mg Q6HP PO 03/01/25 12:00 03/04/25 12:21 650 MG Ondansetron HCl 4 mg Q4HP PRN IV 03/01/25 10:30 Nitroglycerin 0.4 mg Q5MINP PRN SL 03/01/25 10:30 Morphine Sulfate 2 mg Q30M PRN IV 03/01/25 10:30 Vancomycin HCl 0 ml @ 0 mls/hr UD IV 03/01/25 10:30 Isosorbide Mononitrate 30 mg DAILY PO 03/02/25 10:00 03/04/25 12:19 30 MG Metoprolol Succinate 25 mg QPM PO 03/01/25 18:00 03/03/25 18:56 25 MG Vancomycin HCl 300 ml @ 200 mls/hr Q12H IV 03/01/25 23:30 03/04/25 12:15 200 MLS/HR Sodium Chloride 10 ml QSHIFT@10,22 IV 03/02/25 22:00 03/04/25 10:00 10 ML Patient Own Medication 1 DAILY PRN PO 03/02/25 19:15 03/03/25 01:54 1 Laboratory Results Laboratory Tests 03/02/25 12:54 03/03/25 08:15 03/04/25 05:58 Microbiology Microbiology Date/Time Source Procedure Growth Status 03/01/25 21:55 Blood Blood Culture - Preliminary NO GROWTH AFTER 48 HOURS OF INCUBATION. 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 1. Hypertension controlled 2. Dyslipidemia 3. Anxiety disorder 4. Sleep apnea currently CPAP at night and while asleep 5. 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 Aguilar's office. -discharge plan currently on Thursday as antibiotics can not be arranged over the weekend. Plan discussed with: Patient, Other Date of Service: Mar 04, 2025 Billing Provider: NANDINI BUTLER MD Common Visit Codes: NOT BILLABLE NANDINI BUTLER MD Mar 04, 2025 14:03
[2025-03-04 17:00] VITALS: BP 94/54; PULSE 75; RESP 20; TEMP 97.9; O2SAT 93
[2025-03-04 21:00] VITALS: BP 99/55; PULSE 82; RESP 17; TEMP 98.1; O2SAT 93
[2025-03-05 01:00] VITALS: BP 113/68; PULSE 73; RESP 18; TEMP 98; O2SAT 96
[2025-03-05 05:00] VITALS: BP 119/71; PULSE 69; RESP 18; TEMP 98.5; O2SAT 98
[2025-03-05 07:37] LABS: Hematocrit 24.7 % (41.0-53.0); Hemoglobin 8.3 g/dL (13.5-17.5); Mean Corpuscular Hemoglobin 30.4 pg (28.0-32.0); Mean Corpuscular Hgb Conc. 33.8 g/dL (32.0-36.0); Platelet Count (auto) 199 10^3/uL (140-450); Red Blood Cells 2.74 10^6/uL (4.5-5.90); Red Cell Distribution Width 14.3 % (11.8-14.3); White Blood Cell 4.3 10^3/uL (4.4-10.8)
[2025-03-05 07:39] LABS: Band Neutrophils % (manual) 0; Basophils % (manual) 0 (0.0-2.0); Blast Cells 0; Metamyelocytes % 0; Myelocytes % 0; Promyelocytes % 0; Reactive Lymphocytes 0
[2025-03-05 09:00] VITALS: BP 122/72; PULSE 70; RESP 17; TEMP 98.6; O2SAT 95
[2025-03-05 09:11] LABS: Eosinophils % (manual) 9 (0-7); Lymphocytes % (manual) 18 (10.0-50.0); Monocytes % (manual) 1 (0-12); Platelet Estimate Adequate
[2025-03-05] MEDS: BUPRENORPHINE 8 MG SL SCH (09:39)
--- NOTE | 2025-03-05 12:23 | DVHPN2 ---
Progress Note - Dictate Date Seen: Mar 05, 2025 Medical Necessity Reason Pt with a Central, PICC or Fol: Yes The following are medically ne: Miranda Catheter Subjective Patient was lying comfortably in bed during my evaluation and reports some postoperative hip pain that is being well managed with the help of pain medication. Patient reports that he was able to get up and walk with the help of physical therapy and his walker and was able to get down the mcnally around the nurses station and back to his bed with multiple laps with minimal issues. Patient also reports that his preveena dressing has not been holding suction and making noise since early this morning. Patient is otherwise feeling well denying any other complaints or concerns during my evaluation. vital signs Vital Sign Date Time Temp Pulse Resp B/P (MAP) Pulse Ox O2 Delivery O2 Flow Rate FiO2 03/05/25 09:35 122/72 03/05/25 09:00 98.6 70 17 95 98.6 03/05/25 08:00 Room Air* 0 21 Total Intake and Output 03/04/25 03/04/25 03/05/25 15:00 23:00 07:00 Intake Total 1980 ml 1600 ml Output Total 1200 ml 1300 ml Balance 780 ml 300 ml medications Current Medications Medications Dose Ordered Sig/Julio Route Start Time Stop Time Status Last Admin Dose Admin Baclofen 25 mg TID PRN PO 03/01/25 10:30 Gabapentin 900 mg DAILY PO 03/02/25 10:00 03/05/25 09:36 900 MG Paroxetine HCl 40 mg DAILY PO 03/02/25 10:00 03/05/25 09:35 40 MG Patient Own Medication 30 mg DAILY PO 03/02/25 10:00 UNV Patient Own Medication 25 mg QPM PO 03/01/25 18:00 UNV Sodium Chloride 1,000 ml @ 125 mls/hr Q8H IV 03/01/25 11:30 03/05/25 06:30 125 MLS/HR Acetaminophen 650 mg Q6HP PO 03/01/25 12:00 03/05/25 06:29 650 MG Ondansetron HCl 4 mg Q4HP PRN IV 03/01/25 10:30 Nitroglycerin 0.4 mg Q5MINP PRN SL 03/01/25 10:30 Morphine Sulfate 2 mg Q30M PRN IV 03/01/25 10:30 Vancomycin HCl 0 ml @ 0 mls/hr UD IV 03/01/25 10:30 Isosorbide Mononitrate 30 mg DAILY PO 03/02/25 10:00 03/05/25 09:35 30 MG Metoprolol Succinate 25 mg QPM PO 03/01/25 18:00 03/04/25 18:07 25 MG Vancomycin HCl 300 ml @ 200 mls/hr Q12H IV 03/01/25 23:30 03/05/25 00:07 200 MLS/HR Sodium Chloride 10 ml QSHIFT@10,22 IV 03/02/25 22:00 03/05/25 09:34 10 ML Patient Own Medication 1 DAILY SL 03/05/25 10:00 03/05/25 09:39 1 objective A&O x4 in no acute distress Hip range of motion grossly limited with pain on movement Prevena dressing clean, dry, intact, but not maintaining suction Applied a new Prevena dressing without complications and remained clean, dry, intact, and maintaining suction No distal edema or calf tenderness to palpation Neurovascularly intact with cap refill less than 2 seconds laboratory and microbiology Laboratory Tests 03/05/25 10:42 03/05/25 07:00 03/02/25 12:54 Test 03/02/25 12:54 Range/Units Serum Glucose 110 H 74-106 mg/dL Assessment/Plan Continue current management as well as pain control, oxycodone for pain management. Culture results were positive for MRSA and recommend continuing with current antibiotics and will also renew order for Rifampin 600mg once a day. Advised patient to remain weight-bearing as tolerated with the assistance of a walker. We will reconvene with the patient tomorrow for further evaluation and monitoring of his condition and potential discharged home once home IV antibiotics are set up as well as wound care with case management. Dietary Evaluation Review Comments: 1. Continue Regular diet as tolerated 2. Add trial of Ensure Enlive daily (provides 350 kcal, 20 gm pro) 3. Monitor wt trends, PO intake, post-op healing Expected Outcomes/Goals: Improved intakes, optimized nutritional status. Plan discussed with: Patient SOTO,JENGARTH FRANCO Mar 05, 2025 12:23
[2025-03-05 13:00] VITALS: BP 105/65; PULSE 94; RESP 20; TEMP 98.3; O2SAT 92
--- NOTE | 2025-03-05 14:25 | DVHPN2 ---
Subjective Overnight events noted. Patient denies any complaints. IV antibiotics will be arranged by Thursday. 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 Medications Current Medications Medications Dose Ordered Sig/Julio Route Start Time Stop Time Status Last Admin Dose Admin Baclofen 25 mg TID PRN PO 03/01/25 10:30 Gabapentin 900 mg DAILY PO 03/02/25 10:00 03/05/25 09:36 900 MG Paroxetine HCl 40 mg DAILY PO 03/02/25 10:00 03/05/25 09:35 40 MG Patient Own Medication 30 mg DAILY PO 03/02/25 10:00 UNV Patient Own Medication 25 mg QPM PO 03/01/25 18:00 UNV Sodium Chloride 1,000 ml @ 125 mls/hr Q8H IV 03/01/25 11:30 03/05/25 11:30 125 MLS/HR Acetaminophen 650 mg Q6HP PO 03/01/25 12:00 03/05/25 12:06 650 MG Ondansetron HCl 4 mg Q4HP PRN IV 03/01/25 10:30 Nitroglycerin 0.4 mg Q5MINP PRN SL 03/01/25 10:30 Morphine Sulfate 2 mg Q30M PRN IV 03/01/25 10:30 Vancomycin HCl 0 ml @ 0 mls/hr UD IV 03/01/25 10:30 Isosorbide Mononitrate 30 mg DAILY PO 03/02/25 10:00 03/05/25 09:35 30 MG Metoprolol Succinate 25 mg QPM PO 03/01/25 18:00 03/04/25 18:07 25 MG Vancomycin HCl 300 ml @ 200 mls/hr Q12H IV 03/01/25 23:30 03/05/25 12:03 200 MLS/HR Sodium Chloride 10 ml QSHIFT@10,22 IV 03/02/25 22:00 03/05/25 09:34 10 ML Patient Own Medication 1 DAILY SL 03/05/25 10:00 03/05/25 09:39 1 Rifampin 600 mg DAILY PO 03/06/25 10:00 Laboratory Results Laboratory Tests 03/02/25 12:54 03/05/25 07:00 03/05/25 10:42 Microbiology Microbiology Date/Time Source Procedure Growth Status 03/01/25 21:55 Blood Blood Culture - Preliminary NO GROWTH AFTER 72 HOURS OF INCUBATION. 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 1. Hypertension controlled 2. Dyslipidemia 3. Anxiety disorder 4. Sleep apnea currently CPAP at night and while asleep 5. 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 Aguilar's office. -discharge plan currently on Thursday as antibiotics can not be arranged over the weekend. Plan discussed with: Patient My Orders Orders - NANDINI BUTLER MD Procedure Category Date Status Time Patients Own PHA 03/05/25 In Process Medication 10:00 Date of Service: Mar 05, 2025 Billing Provider: NANDINI BUTLER MD Common Visit Codes: NOT BILLABLE NANDINI BUTLER MD Mar 05, 2025 14:25
[2025-03-05 17:00] VITALS: BP 107/66; PULSE 86; RESP 19; TEMP 98.3; O2SAT 94
[2025-03-05 21:00] VITALS: BP 108/65; PULSE 78; RESP 19; TEMP 96; O2SAT 94
[2025-03-06] VITALS (7 sets, daily range): BP systolic 95–144; BP diastolic 63–83; PULSE 51–86; RESP 16–19; TEMP 36.9; O2SAT 94–97
[2025-03-06 06:21] LABS: Hemoglobin 8.3 g/dL (13.5-17.5); Mean Corpuscular Hgb Conc. 33.5 g/dL (32.0-36.0); Platelet Count (auto) 194 10^3/uL (140-450); Red Blood Cells 2.73 10^6/uL (4.5-5.90)
[2025-03-06 06:23] LABS: Hematocrit 24.8 % (41.0-53.0); Mean Corpuscular Hemoglobin 30.4 pg (28.0-32.0); Mean Corpuscular Volume 90.6 fL (80.0-100.0); Red Cell Distribution Width 14.4 % (11.8-14.3); White Blood Cell 4.2 10^3/uL (4.4-10.8)
[2025-03-06 06:42] LABS: Anion Gap 6 (5-15); Calcium 10.1 mg/dL (8.7-10.4); Carbon Dioxide 30 mmol/L (20-31); Chloride 104 mmol/L (98-107); Potassium 4.2 mmol/L (3.5-5.1); Sodium 140 mmol/L (136-145)
[2025-03-06 06:48] LABS: BUN/Creatinine Ratio 16.9 (10.0-20.0); Blood Urea Nitrogen 14 mg/dL (9-23); Glucose 97 mg/dL (74-106)
[2025-03-06 06:53] LABS: Band Neutrophils % (manual) 0; Basophils % (manual) 0 (0.0-2.0); Blast Cells 0; Metamyelocytes % 0; Myelocytes % 0; Promyelocytes % 0; Reactive Lymphocytes 0
--- NOTE | 2025-03-06 08:56 | DVHPN2 ---
Progress Note - Dictate Date Seen: Mar 06, 2025 Medical Necessity Reason Pt with a Central, PICC or Fol: Yes The following are medically ne: Miranda Catheter Subjective No new acute complaints noted. vital signs Vital Sign Date Time Temp Pulse Resp B/P (MAP) Pulse Ox O2 Delivery O2 Flow Rate FiO2 03/06/25 05:00 98.1 72 19 119/64 (82) 94 98.1 03/05/25 20:00 Room Air* 0 21 Total Intake and Output 03/05/25 03/05/25 03/06/25 15:00 23:00 07:00 Intake Total 1180 ml 1100 ml Output Total 1250 ml Balance 1180 ml -150 ml medications Current Medications Medications Dose Ordered Sig/Julio Route Start Time Stop Time Status Last Admin Dose Admin Baclofen 25 mg TID PRN PO 03/01/25 10:30 Gabapentin 900 mg DAILY PO 03/02/25 10:00 03/05/25 09:36 900 MG Paroxetine HCl 40 mg DAILY PO 03/02/25 10:00 03/05/25 09:35 40 MG Patient Own Medication 30 mg DAILY PO 03/02/25 10:00 UNV Patient Own Medication 25 mg QPM PO 03/01/25 18:00 UNV Sodium Chloride 1,000 ml @ 125 mls/hr Q8H IV 03/01/25 11:30 03/06/25 05:14 125 MLS/HR Acetaminophen 650 mg Q6HP PO 03/01/25 12:00 03/06/25 05:13 650 MG Ondansetron HCl 4 mg Q4HP PRN IV 03/01/25 10:30 Nitroglycerin 0.4 mg Q5MINP PRN SL 03/01/25 10:30 Morphine Sulfate 2 mg Q30M PRN IV 03/01/25 10:30 Vancomycin HCl 0 ml @ 0 mls/hr UD IV 03/01/25 10:30 Isosorbide Mononitrate 30 mg DAILY PO 03/02/25 10:00 03/05/25 09:35 30 MG Metoprolol Succinate 25 mg QPM PO 03/01/25 18:00 03/05/25 17:51 25 MG Vancomycin HCl 300 ml @ 200 mls/hr Q12H IV 03/01/25 23:30 03/05/25 23:48 200 MLS/HR Sodium Chloride 10 ml QSHIFT@10,22 IV 03/02/25 22:00 03/05/25 23:47 10 ML Patient Own Medication 1 DAILY SL 03/05/25 10:00 03/05/25 09:39 1 Rifampin 600 mg DAILY PO 03/06/25 10:00 objective HEENT pupils are reactive Neck is supple CV is S1-S2 regular rate and rhythm Respiratory diminished breath sound bases GI posterior bowel sound Extremity no edema. S/P revision of right hip arthroplasty. 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 OR cx is growing MRSA Right hip Arthroplasty on January 17 2025 Continue IV Vancomycin. goal trough 15-20. Monitor toxicity. follow blood cultures He got PICC line Case management consult to arrange IV Vancomycin 1500 mg q12h for 6 weeks with goal trough 15-20. Pharmacy will manage vancomycin dosing. Weekly labs CBC with diff, CMP, ESR and Vancomycin Trough. Prescribe Oral Rifampin 600 mg daily for 6 weeks, closely monitor LFT Ortho on board Follow up with ID in 2 weeks and Ortho in 1 week. 03/03, Vancomycin Trough is 16.0 Discussed with patient, there is always a chance of reinfection with MRSA as its a very sticky bug Antibiotic status: Vancomycin IV [Started on 03/01 - Ongoing] Rifampin PO [Given on 03/02] Review of culture: 03/01, OR culture showed MRSA 03/01, Blood culture preliminary showed no growth 03/01, Pelvis x-ray showed There is no evidence of acute fracture or dislocation. Right hip arthroplasty. Antibiotic seeds in the right hip joint space. Drainage catheter overlies the soft-tissue of the right hip. A total of 50 minutes was spent performing this encounter on this date of service. My evaluation of this patient included review of the chart, history, laboratory, imaging findings and discussion with the patient and or family, treatment team placing orders and documenting the plan. discussed with dr Dubose Thank you for consult Dietary Evaluation Review Comments: 1. Continue Regular diet as tolerated 2. Add trial of Ensure Enlive daily (provides 350 kcal, 20 gm pro) 3. Monitor wt trends, PO intake, post-op healing Expected Outcomes/Goals: Improved intakes, optimized nutritional status. Plan discussed with: Other HANNAH BOLANOS MD Mar 06, 2025 08:56
[2025-03-06 09:16] LABS: Eosinophils % (manual) 20 (0-7); Lymphocytes % (manual) 18 (10.0-50.0); Monocytes % (manual) 9 (0-12); Platelet Estimate Adequate
[2025-03-06] MEDS: rifAMPin 300 MG CAP PO SCH (09:33)
--- NOTE | 2025-03-06 12:28 | DVHPN2 ---
Progress Note - Dictate Date Seen: Mar 06, 2025 Medical Necessity Reason Pt with a Central, PICC or Fol: No Subjective Patient was lying comfortably in bed during my evaluation and reports some postoperative hip pain that is being well managed with the help of pain medication. Patient reports that he was able to get up and walk with the help of physical therapy and his walker and was able to get down the mcnally around the nurses station and back to his bed with multiple laps with minimal issues. Patient also reports that his preveena dressing has been holding suction and has not had any issues. Patient is otherwise feeling well denying any other complaints or concerns during my evaluation. vital signs Vital Sign Date Time Temp Pulse Resp B/P (MAP) Pulse Ox O2 Delivery O2 Flow Rate FiO2 03/06/25 09:33 143/83 03/06/25 09:00 98.1 82 16 97 98.1 03/06/25 08:00 Room Air* 0 21 Total Intake and Output 03/05/25 03/05/25 03/06/25 15:00 23:00 07:00 Intake Total 1180 ml 1100 ml Output Total 1250 ml Balance 1180 ml -150 ml medications Current Medications Medications Dose Ordered Sig/Julio Route Start Time Stop Time Status Last Admin Dose Admin Baclofen 25 mg TID PRN PO 03/01/25 10:30 Gabapentin 900 mg DAILY PO 03/02/25 10:00 03/06/25 09:32 900 MG Paroxetine HCl 40 mg DAILY PO 03/02/25 10:00 03/06/25 09:33 40 MG Patient Own Medication 30 mg DAILY PO 03/02/25 10:00 UNV Patient Own Medication 25 mg QPM PO 03/01/25 18:00 UNV Sodium Chloride 1,000 ml @ 125 mls/hr Q8H IV 03/01/25 11:30 03/06/25 05:14 125 MLS/HR Acetaminophen 650 mg Q6HP PO 03/01/25 12:00 03/06/25 12:22 650 MG Ondansetron HCl 4 mg Q4HP PRN IV 03/01/25 10:30 Nitroglycerin 0.4 mg Q5MINP PRN SL 03/01/25 10:30 Morphine Sulfate 2 mg Q30M PRN IV 03/01/25 10:30 Vancomycin HCl 0 ml @ 0 mls/hr UD IV 03/01/25 10:30 Isosorbide Mononitrate 30 mg DAILY PO 03/02/25 10:00 03/06/25 09:33 30 MG Metoprolol Succinate 25 mg QPM PO 03/01/25 18:00 03/05/25 17:51 25 MG Vancomycin HCl 300 ml @ 200 mls/hr Q12H IV 03/01/25 23:30 03/06/25 12:21 200 MLS/HR Sodium Chloride 10 ml QSHIFT@10,22 IV 03/02/25 22:00 03/06/25 09:31 10 ML Patient Own Medication 1 DAILY SL 03/05/25 10:00 03/06/25 09:32 1 Rifampin 600 mg DAILY PO 03/06/25 10:00 03/06/25 09:33 600 MG objective A&O x4 in no acute distress Hip range of motion 0-120 with pain on movement Prevena dressing clean, dry, intact, and maintaining suction No distal edema or calf tenderness to palpation Neurovascularly intact with cap refill less than 2 seconds laboratory and microbiology Laboratory Tests 03/06/25 05:36 Test 03/06/25 05:36 Range/Units Serum Glucose 97 74-106 mg/dL Assessment/Plan Patient to be discharged home and advised to remain weight-bearing as tolerated with the assistance of a walker but to avoid crossing his legs. I also advised the patient to maintain his dressings clean, dry, intact, and maintaining suction and to call our office if he has any questions or concerns as well as to set up an appointment in 10-14 days for his 1st postoperative evaluation. Rx sent via our outpatient EMR system. Patient understood and agreed. Dietary Evaluation Review Comments: 1. Continue Regular diet as tolerated 2. Add trial of Ensure Enlive daily (provides 350 kcal, 20 gm pro) 3. Monitor wt trends, PO intake, post-op healing Expected Outcomes/Goals: Improved intakes, optimized nutritional status. Plan discussed with: Patient JUDITH SOTO Mar 06, 2025 12:28
--- NOTE | 2025-03-06 12:32 | DVHDS2 ---
Discharge Summary Date of Admission Mar 01, 2025 at 11:28 Date of Discharge: Mar 06, 2025 Labs/Diagnostic Data: Laboratory Results Test 03/06/25 05:36 03/05/25 10:42 03/05/25 07:00 03/03/25 08:15 White Blood Count 4.2 10^3/uL (4.4-10.8) Red Blood Count 2.73 10^6/uL (4.5-5.90) Hemoglobin 8.3 g/dL (13.5-17.5) Hematocrit 24.8 % (41.0-53.0) Mean Corpuscular Volume 90.6 fL (80.0-100.0) Mean Corpuscular Hemoglobin 30.4 pg (28.0-32.0) Mean Corpuscular Hemoglobin Concent 33.5 g/dL (32.0-36.0) Red Cell Distribution Width 14.4 % (11.8-14.3) Platelet Count 194 10^3/uL (140-450) Mean Platelet Volume 6.9 fL (6.9-10.8) Neutrophils (%) (Auto) % (37.0-80.0) Lymphocytes (%) (Auto) % (10.0-50.0) Monocytes (%) (Auto) % (0.0-12.0) Basophils (%) (Auto) % (0.0-2.0) Neutrophils # (Auto) 10 ^3/uL (1.6-8.6) Lymphocytes # (Auto) 10 ^3/uL (0.4-5.4) Monocytes # (Auto) 10 ^3/uL (0-1.3) Differential Total Cells Counted 100.0 (100) Neutrophils % (Manual) 53 (37.0-80.0) Band Neutrophils % (Manual) 0 Lymphocytes % (Manual) 18 (10.0-50.0) Monocytes % (Manual) 9 (0-12) Eosinophils % (Manual) 20 (0-7) Basophils % (Manual) 0 (0.0-2.0) Metamyelocytes % (manual) 0 Myelocytes % (Manual) 0 Promyelocytes % (Manual) 0 Blast Cells % (Manual) 0 Reactive Lymphocytes 0 Platelet Estimate Adequate Sodium Level 140 mmol/L (136-145) Potassium Level 4.2 mmol/L (3.5-5.1) Chloride Level 104 mmol/L (98-107) Carbon Dioxide Level 30 mmol/L (20-31) Anion Gap 6 (5-15) Blood Urea Nitrogen 14 mg/dL (9-23) Creatinine 0.83 mg/dL (0.700-1.30) Glomerular Filtration Rate Calc 96 mL/min (>90) BUN/Creatinine Ratio 16.9 (10.0-20.0) Serum Glucose 97 mg/dL (74-106) Calcium Level 10.1 mg/dL (8.7-10.4) Vancomycin Level Trough 17.9 ug/mL (5-10) Eosinophils (%) (Auto) % (0.0-7.0) Eosinophils # (Auto) 0.2 10 ^3/uL (0-0.8) Basophils # (Auto) 0 10 ^3/uL (0-0.2) Nucleated Red Blood Cells 0.1 % Test 03/01/25 13:26 Prothrombin Time 10.8 sec (9.3-11.8) Prothrombin Time INR 1.02 (0.9-1.15) Activated Partial Thromboplast Time 27.1 SEC (24.5-34.5) Other Laboratory Tests 03/06/25 05:36 Brief Hx & Hospital Course: Patient was brought to the hospital last Thursday to undergo a right hip revision of femoral head and acetabular liner due to a MRSA infection. The patient tolerated the procedure well without complications and was kept for a few days her postoperative evaluation and monitoring. Patient has been doing well denying any overnight events since his operation. Patient has been able to get up and walk with the help of physical therapy and his walker since the 1st day from surgery and was able to get down the mcnally and back to his bed with minimal pain. Patient reports that his pain has significantly improved and feels he is recovering easier from this 2nd operation. Patient had a wound VAC drain placed after surgery and was removed on Thursday morning without any complications. Patient is otherwise feeling well denying any other complaints or concerns during my evaluation and is ready to go home. I spoke with the patient's nurse who reports that the IV antibiotics are set up for home and he is ready to go. Condition at Discharge: Stable Final Diagnosis/Problems List Right hip prosthetic infection Discharge Disposition: Home with Health Services Discharge Instruct/Medications Diet: Regular Activity: See Comment Activity comment: Patient to remain weight-bearing as tolerated with the assistance of a walker but to avoid crossing his legs Follow Up/Referral: I instructed the patient to follow up with our office in 10-14 days for his 1st postoperative evaluation Medications: Rx sent via our outpatient EMR system Discharge Statement: "Patient was advised to return to the ER or call 911 if any headaches, dizziness, shortness of breath, chest pain, abdominal pain, bleeding, fevers, or worsening of medical condition. Patient was counseled about treatment plan, medications, possible side effects, patient�verbalized understanding. All questions were answered to the best of my ability. This discharge took greater then 30 minutes in planning, reviewing documentation, counseling the patient, and discussing with other team members." ASSESSMENT ASSESSMENT Assessment Right hip prosthetic infection JUDITH SOTO Mar 06, 2025 12:32
== END 2025-03-06 23:59 | disposition home health service (06) | DRG 465 ==
LOC: SUR 06:21 → OVERFLOW 11:28 → EAST 12:31
PROVIDERS: ADMIT Internal Medicine; ATTEND Internal Medicine
PROC: 0QW Lower Bones, Revision (ICD-10-PCS; 2025-03-01)
PROC: 0SW909Z Revision of Liner in Right Hip Joint, Open Approach (ICD-10-PCS; 2025-03-01)
PROC: 3E0U029 Introduction of Other Anti-infective into Joints, Open Approach (ICD-10-PCS; 2025-03-01)
PROC: 0JBL0ZZ Excision of Right Upper Leg Subcutaneous Tissue and Fascia, Open Approach (ICD-10-PCS; principal; 2025-03-01 07:24)
PROC: 02HV33Z Insertion of Infusion Device into Superior Vena Cava, Percutaneous Approach (ICD-10-PCS; 2025-03-02)
PROC: B548ZZA Ultrasonography of Superior Vena Cava, Guidance (ICD-10-PCS; 2025-03-02)
DX: T84.51XA Infection and inflammatory reaction due to internal right hip prosthesis, initial encounter (principal); B95.61 Methicillin susceptible Staphylococcus aureus infection as the cause of diseases classified elsewhere; G47.30 Sleep apnea, unspecified; F41.9 Anxiety disorder, unspecified; E78.5 Hyperlipidemia, unspecified; I10 Essential (primary) hypertension; Y83.1 Surgical operation with implant of artificial internal device as the cause of abnormal reaction of the patient, or of later complication, without mention of misadventure at the time of the procedure; Z82.49 Family history of ischemic heart disease and other diseases of the circulatory system; Z88.1 Allergy status to other antibiotic agents; Z88.8 Allergy status to other drugs, medicaments and biological substances; Z79.899 Other long term (current) drug therapy; Z79.1 Long term (current) use of non-steroidal anti-inflammatories (NSAID); Z79.82 Long term (current) use of aspirin; Y92.89 Other specified places as the place of occurrence of the external cause
CPT/HCPCS: 36415; 36569; 72170; 76937; 80048; 80202; 82565; 85007; 85025; 85027; 85610; 85730; 86850; 86900; 86901; 87040; 87070; 87075; 87077; 87186; 87205; 97110; 97116; 97162; 97530; G0378; J0131; J0171; J1100; J1885; J2405; J2704

== ENCOUNTER 2025-04-11 16:50 | Emergency (ER) | payer OTHER ==
[~2025-04-11] VITALS: Ht 190.5 cm; Wt 110.2 kg
--- NOTE | 2025-04-11 17:15 | ED.PDOC ---
History of Present Illness HPI Comments 69 year old male presents to the emergency department with a chief complaint of PICC line replacement onset today (04/11/25). Patient has a RT hip replacement surgery, was diagnosed with MRSA, had PICC line placed for Vancomycin treatment. This morning he noticed medication was not going down, went to urgent care and was told they were having a difficult time flushing the line. Patient was recommended to come to ED. He has no further complaints. PMHx HLD, DM, arthritis. Denies fever, chills, nausea, vomiting, diarrhea, headache, dizziness, chest pain, shortness of breath. No other symptoms or modifying factors present at this time. Time Seen by MD: 17:00 Reviewed Notes: Medications, Allergies Allergies: Coded Allergies: Amoxicillin (Unverified Adverse Reaction, Unknown, itching , 02/27/25) Clavulanic Acid (Unverified Adverse Reaction, Unknown, itching , 02/27/25) Home Meds Reported Medications Acetylcysteine (Nac) 600 Mg Cap, 600 MG PO DAILY, CAP 02/27/25 Crataegus Oxyacantha ([place] (HAWTHORN) 150 Mg Cap, 150 MG OR DAILY, CAP 02/27/25 Sulfamethoxazole-Trimethoprim (Bactrim) 1 Tab Tab, 1 TAB PO BID, TAB 02/27/25 Gabapentin (Gabapentin) 300 Mg Cap, 900 MG PO DAILY, CAP 02/27/25 Grape Seed Extract (Lucoanthro (Grape Seed Extract) 30 Mg Cap, PO DAILY, CAP 01/13/25 Magnesium Oxide (MAGNESIUM OXIDE) 400 Mg Tab, OR DAILY, TAB 01/13/25 Multiple Vitamin (Multivitamins) Tab, 1 OR DAILY, TAB 01/13/25 Niacin (NIACIN ER) 500 Mg Tab, OR, TAB 01/13/25 Acetaminophen (Tylenol Extra Strength) 500 Mg Tab, 500 MG PO, TAB 01/13/25 Buprenorphine (Brixadi) 8 Mg/0.16 Ml Lauren, 8 MG SC, ML 01/13/25 Isosorbide Mononitrate (Isosorbide Mononitrate Er) 30 Mg Tab, 30 MG PO DAILY, TAB 01/13/25 Paroxetine (PAXIL TABLET) 20 Mg Tb, 40 MG PO DAILY, TAB 01/13/25 Rosuvastatin Calcium (Crestor) 20 Mg Tab, 20 MG PO DAILY, TAB 01/13/25 Metoprolol Succinate (Toprol Xl) 25 Mg Tab, 25 MG PO QPM, TAB 01/13/25 Baclofen (Baclofen) 10 Mg Tab, 25 MG PO TID PRN for 5, TAB 01/13/25 Aspirin (Aspirin) 325 Mg Tab, 325 MG PO DAILY, TAB 01/13/25 Information Source: Patient Mode of Arrival: Ambulatory Severity: Moderate Timing: Hours Duration: Since onset Prehospital treatment: None Past Medical History PAST MEDICAL HISTORY: Arthritis, CAD, DM, High Lipids, HTN Surgical History: PTCA Surgical History (Other): RT hip replacement Family History Family History: Reviewed,noncontributory to illness, No family hx of Cancer, No family hx of DM, No family hx of Heart duncan, No family hx of HTN, No family hx ofKidney duncan, No family hx of Liver duncan, No family hx of Lung duncan, No family hx of Stroke Social History Smoker: Non-Smoker Alcohol: Denies ETOH Use Drugs: Denies Drug Use Lives In: Home All Other Systems: Reviewed and Negative (as per HPI) Physical Exam General Appearance: No Apparent Distress HEENT: Other (Pupils and face symmetric. Moist mucous membranes.) Neck: Full Range of Motion, Normal Inspection Respiratory: Lungs Clear, No Accessory Muscle Use, No Respiratory Distress, Normal Breath Sounds Cardiovascular: No Edema, No JVD, Regular Rate/Rhythm Breast Exam: Deferred Gastrointestinal: Non Tender, Soft Genitalia: Deferred Pelvic: Deferred Rectal: Deferred Extremities: Normal range of motion, Non-tender, No pedal edema, Other (Right upper extremity PICC insertion site appears clean and dry without surrounding erythema, bleeding, edema or discoloration.) Neurologic: Alert (Oriented x4), Normal Affect, Normal Mood, Other (Ambulatory) Cerebellar Function: NOT DONE Reflexes: NOT DONE Skin: Dry, Normal Color, Warm Lymphatic: NOT DONE Was a procedure done? Was a procedure done?: No Differential Dx Considerations may include: PICC line occlusion, dislodgement, infection, among others X-Ray, Labs, Meds, VS Vital Signs Date Time Temp Pulse Resp B/P (MAP) Pulse Ox O2 Delivery O2 Flow Rate FiO2 04/11/25 22:38 72 19 98 Room Air* 0 21 04/11/25 22:35 98.0 72 19 145/87 (106) 98 98.0 04/11/25 19:19 97.8 69 20 102/65 (77) 98 97.8 04/11/25 17:10 97.8 81 16 125/77 (93) 95 97.8 Lab Test 04/11/25 21:17 Range/Units White Blood Count 4.3 L 4.4-10.8 10^3/uL Red Blood Count 4.50 4.5-5.90 10^6/uL Hemoglobin 13.5 13.5-17.5 g/dL Hematocrit 40.7 L 41.0-53.0 % Mean Corpuscular Volume 90.4 80.0-100.0 fL Mean Corpuscular Hemoglobin 30.0 28.0-32.0 pg Mean Corpuscular Hemoglobin Concent 33.1 32.0-36.0 g/dL Red Cell Distribution Width 14.9 H 11.8-14.3 % Platelet Count 165 140-450 10^3/uL Mean Platelet Volume 7.0 6.9-10.8 fL Neutrophils (%) (Auto) 55.9 37.0-80.0 % Lymphocytes (%) (Auto) 21.1 10.0-50.0 % Monocytes (%) (Auto) 12.0 0.0-12.0 % Eosinophils (%) (Auto) 9.9 H 0.0-7.0 % Basophils (%) (Auto) 1.1 0.0-2.0 % Neutrophils # (Auto) 2.4 1.6-8.6 10 ^3/uL Lymphocytes # (Auto) 0.9 0.4-5.4 10 ^3/uL Monocytes # (Auto) 0.5 0-1.3 10 ^3/uL Eosinophils # (Auto) 0.4 0-0.8 10 ^3/uL Basophils # (Auto) 0 0-0.2 10 ^3/uL Nucleated Red Blood Cells 0.0 % Prothrombin Time 10.4 9.3-11.8 sec Prothrombin Time INR 0.98 0.9-1.15 Activated Partial Thromboplast Time 31.0 24.5-34.5 SEC Sodium Level 140 136-145 mmol/L Potassium Level 4.2 3.5-5.1 mmol/L Chloride Level 104 98-107 mmol/L Carbon Dioxide Level 29 20-31 mmol/L Anion Gap 7 5-15 Blood Urea Nitrogen 16 9-23 mg/dL Creatinine 0.92 0.700-1.30 mg/dL Glomerular Filtration Rate Calc 91 >90 mL/min BUN/Creatinine Ratio 17.4 10.0-20.0 Serum Glucose 95 74-106 mg/dL Calcium Level 10.5 H 8.7-10.4 mg/dL Current Medications Medications (Trade) Dose Ordered Sig/Julio Route Start Time Stop Time Status Last Admin Alteplase, Recombinant (Cathflo Activase 2MG) 2 mg ONCE ONCE IV 04/11/25 18:30 04/11/25 18:32 DC 04/11/25 18:54 Vancomycin HCl 250 ml @ 200 mls/hr ONCE ONCE IV 04/11/25 21:30 04/11/25 22:44 DC 04/11/25 22:26 X-Ray, Labs, Meds, VS Comment 69-year-old male with history of hypertension, diabetes, dyslipidemia, CAD, recent hip replacement with MRSA infection on IV vancomycin at home presenting with occluded PICC line. Vitals unremarkable Exam unremarkable except for occluded right upper extremity PICC, very difficult to flush. Rhythm strip independently interpreted by me: Sinus rhythm, rate 81, no ectopy. PROCEDURE(s): CXR1 - CHEST XRAY 1 VIEW REASON: PICC placement ORDER NUMBER(s): [id number], ACCESSION NUMBER(s): [id number] CHEST RADIOGRAPH IMPRESSION: 1. Right-sided PICC line is in the proximal superior vena cava CBC, basic metabolic panel and coag panel unremarkable ER course: I attempted to flush the PICC line without success. I consulted the PICC line nurse, who requested a chest x-ray for placement. Chest x-ray showed the PICC line adequately positioned. PICC line nurse recommended treatment with cath flow, which was administered by her in the ED. PICC line nurse stated that if initial treatment with cath flow does not work after 2 hours, the procedure can be repeated. If still unsuccessful, patient will require admission or must return tomorrow for PICC line reinsertion in the morning, as they are unava ilable after 1900. After the 1st cath flow treatment, the PICC line was aspirated until there was blood noted within the catheter. There was still very high resistance when I attempted to flush the line with saline. Case discussed with LAURA Haider, who will arrange for the patient to have outpatient PICC line replacement tomorrow morning. We will provide his nighttime vancomycin dose in the ER now. Patient treated with the following in the ED: Vancomycin 1.25 g IV On re-evaluation, patient is resting comfortably with stable vitals. Patient appears stable for discharge with arrangement for outpatient PICC line replacement by LAURA Haider. Time of 1ST Reevaluation: 17:30 Reevaluation 1ST: Unchanged Patient Education/Counseling: Diagnosis, Treatment, Prognosis Family Education/Counseling: No Family Present Departure 1 Departure Time of Disposition: 21:08 Impression: Primary Impression: Occluded PICC line Qualified Codes: T82.898A - Other specified complication of vascular prosthetic devices, implants and grafts, initial encounter Disposition: HOME / SELF CARE / HOMELESS Condition: Stable Additional Instructions: Your PICC line will be replaced tomorrow morning. Continue current medications as directed. Discharged With: Relative Critical Care Note Critical Care Time?: No Stability Stability form required: No Heart Score Heart Score: Heart Score Response (Comments) Value History N/A 0 EKG N/A 0 Age N/A 0 Risk Factors N/A 0 Troponin N/A 0 Total 0 I personally scribed for SAYRA BERGER MD ([email or web address]) on 04/11/25 at 17:15. Electronically submitted by Dana Ortiz ([email or web address]). SAYRA BERGER MD Apr 11, 2025 17:15
--- NOTE | 2025-04-11 18:02 | DVH ---
CHEST RADIOGRAPH Indication: PICC placement Technique: Single frontal view of the chest was obtained COMPARISON: None FINDINGS: Lines and Tubes: Right-sided PICC line is in the proximal superior vena cava Lungs: Clear Pleura: No effusion. No pneumothorax. Cardiomediastinal contours: Unremarkable Bones: Unremarkable IMPRESSION: 1. Right-sided PICC line is in the proximal superior vena cava
[2025-04-11] MEDS: CATHFLO ACTIVASE (ALTEPLASE) 2 MG VIAL IV ONE (18:54)
[2025-04-11] MEDS ORDERED: CATHFLO ACTIVASE (ALTEPLASE) 2 MG VIAL IV ONE (21:15)
[2025-04-11 21:26] LABS: Basophils # (auto) 0 10 ^3/uL (0-0.2); Basophils % (auto) 1.1 % (0.0-2.0); Eosinophils # (auto) 0.4 10 ^3/uL (0-0.8); Eosinophils % (auto) 9.9 % (0.0-7.0); Hematocrit 40.7 % (41.0-53.0); Hemoglobin 13.5 g/dL (13.5-17.5); Lymphocytes # (auto) 0.9 10 ^3/uL (0.4-5.4); Lymphocytes % (auto) 21.1 % (10.0-50.0); Mean Corpuscular Hgb Conc. 33.1 g/dL (32.0-36.0); Mean Corpuscular Volume 90.4 fL (80.0-100.0); Monocytes # (auto) 0.5 10 ^3/uL (0-1.3); Neutrophils # (auto) 2.4 10 ^3/uL (1.6-8.6); Neutrophils % (auto) 55.9 % (37.0-80.0); Platelet Count (auto) 165 10^3/uL (140-450); Red Cell Distribution Width 14.9 % (11.8-14.3); White Blood Cell 4.3 10^3/uL (4.4-10.8)
--- NOTE | 2025-04-11 21:29 | DVHINCON2 ---
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 Patient initially went to urgent care to have the PICC line checked and was instructed to go to the emergency department. While in the emergency department the PICC line was evaluated per the PICC line nurse who recommended the use of Cathflo to treat the occluded line. However the line Continues to be occluded with resistance to flushing and withdrawal. Internal medicine was consulted to assist with medical management of the occluded PICC li ne. Family History: Ischemic heart disease G8 MOTHER (53) Allergies: Coded Allergies: Amoxicillin (Unverified Adverse Reaction, Unknown, itching , 02/27/25) Clavulanic Acid (Unverified Adverse Reaction, Unknown, itching , 02/27/25) Home Meds Reported Medications Acetylcysteine (Nac) 600 Mg Cap, 600 MG PO DAILY, CAP 02/27/25 Crataegus Oxyacantha ([place] (HAWTHORN) 150 Mg Cap, 150 MG OR DAILY, CAP 02/27/25 Sulfamethoxazole-Trimethoprim (Bactrim) 1 Tab Tab, 1 TAB PO BID, TAB 02/27/25 Gabapentin (Gabapentin) 300 Mg Cap, 900 MG PO DAILY, CAP 02/27/25 Grape Seed Extract (Lucoanthro (Grape Seed Extract) 30 Mg Cap, PO DAILY, CAP 01/13/25 Magnesium Oxide (MAGNESIUM OXIDE) 400 Mg Tab, OR DAILY, TAB 01/13/25 Multiple Vitamin (Multivitamins) Tab, 1 OR DAILY, TAB 01/13/25 Niacin (NIACIN ER) 500 Mg Tab, OR, TAB 01/13/25 Acetaminophen (Tylenol Extra Strength) 500 Mg Tab, 500 MG PO, TAB 01/13/25 Buprenorphine (Brixadi) 8 Mg/0.16 Ml Lauren, 8 MG SC, ML 01/13/25 Isosorbide Mononitrate (Isosorbide Mononitrate Er) 30 Mg Tab, 30 MG PO DAILY, TAB 01/13/25 Paroxetine (PAXIL TABLET) 20 Mg Tb, 40 MG PO DAILY, TAB 01/13/25 Rosuvastatin Calcium (Crestor) 20 Mg Tab, 20 MG PO DAILY, TAB 01/13/25 Metoprolol Succinate (Toprol Xl) 25 Mg Tab, 25 MG PO QPM, TAB 01/13/25 Baclofen (Baclofen) 10 Mg Tab, 25 MG PO TID PRN for 5, TAB 01/13/25 Aspirin (Aspirin) 325 Mg Tab, 325 MG PO DAILY, TAB 01/13/25 Current Medications Current Medications Medications (Trade) Dose Ordered Sig/Julio Route PRN Reason Start Time Stop Time Status Last Admin Vancomycin HCl 250 ml @ 200 mls/hr Q8HR IV 04/12/25 01:00 UNV Review of Systems Ten systems reviewed and negative except as per HPI Vital Signs Vital Signs Date Time Temp Pulse Resp B/P (MAP) Pulse Ox O2 Delivery O2 Flow Rate FiO2 04/11/25 19:19 97.8 69 20 102/65 (77) 98 97.8 Physical Exam GENERAL: Patient appearing stated age, in no acute distress. HEENT: Pupils equal and reactive to light and accommodation. Extraocular muscles intact. Mucous membranes moist. Conjunctivae pink. Anicteric sclerae. LUNGS: Bilateral air entry. No wheezes, rhonchi or rales. HEART: Regular rate and rhythm. Normal S1 and S2. ABDOMEN: BS normoactive, soft, nontender, and nondistended. No CVA tenderness. EXTREMITIES: No clubbing, cyanosis, edema. No calf tenderness. Pedal pulses 2+. Right upper extremity PICC line dressing CDI. PICC line occluded. NEUROLOGICAL: The patient is alert and oriented times 3. CN II-XII intact. No focal deficits on gross sensory or motor examination. Labs/Diagnostic Data Labs Test 04/11/25 21:17 Range/Units Assessment Malfunctioning PICC line S/P MRSA infection of right hip prosthesis Patient was seen and evaluated in the emergency department treatment area. The patient's chart was reviewed in its entirety including previous admissions. While in the emergency department, the picc line was evaluated by a picc line nurse. PICC line was treated with Cathflo activase. However, nursing reported to the ER provider that after an additional attempt to flush the PICC line, the PICC line is now patent. Plan/Recommendation Patient can be discharged home after receiving nightly dose of vancomycin 1 g IV. HMO case management has been consulted to schedule outpatient re-evaluation, and possible removal and placement of new PICC line the following day. Plan of care was discussed in detail with the patient who agrees and states he understands the current plan of care. Plan discussed with: Patient NANDINI BUTLER MD 04/12/25 1343: Family History: Ischemic heart disease G8 MOTHER (53) Allergies: Coded Allergies: Amoxicillin (Unverified Adverse Reaction, Unknown, itching , 02/27/25) Clavulanic Acid (Unverified Adverse Reaction, Unknown, itching , 02/27/25) Home Meds Reported Medications Acetylcysteine (Nac) 600 Mg Cap, 600 MG PO DAILY, CAP 02/27/25 Crataegus Oxyacantha ([place] (HAWTHORN) 150 Mg Cap, 150 MG OR DAILY, CAP 02/27/25 Sulfamethoxazole-Trimethoprim (Bactrim) 1 Tab Tab, 1 TAB PO BID, TAB 02/27/25 Gabapentin (Gabapentin) 300 Mg Cap, 900 MG PO DAILY, CAP 02/27/25 Grape Seed Extract (Lucoanthro (Grape Seed Extract) 30 Mg Cap, PO DAILY, CAP 01/13/25 Magnesium Oxide (MAGNESIUM OXIDE) 400 Mg Tab, OR DAILY, TAB 01/13/25 Multiple Vitamin (Multivitamins) Tab, 1 OR DAILY, TAB 01/13/25 Niacin (NIACIN ER) 500 Mg Tab, OR, TAB 01/13/25 Acetaminophen (Tylenol Extra Strength) 500 Mg Tab, 500 MG PO, TAB 01/13/25 Buprenorphine (Brixadi) 8 Mg/0.16 Ml Lauren, 8 MG SC, ML 01/13/25 Isosorbide Mononitrate (Isosorbide Mononitrate Er) 30 Mg Tab, 30 MG PO DAILY, TAB 01/13/25 Paroxetine (PAXIL TABLET) 20 Mg Tb, 40 MG PO DAILY, TAB 01/13/25 Rosuvastatin Calcium (Crestor) 20 Mg Tab, 20 MG PO DAILY, TAB 01/13/25 Metoprolol Succinate (Toprol Xl) 25 Mg Tab, 25 MG PO QPM, TAB 01/13/25 Baclofen (Baclofen) 10 Mg Tab, 25 MG PO TID PRN for 5, TAB 01/13/25 Aspirin (Aspirin) 325 Mg Tab, 325 MG PO DAILY, TAB 01/13/25 LAYTON MAI NP Apr 11, 2025 21:29 NANDINI BUTLER MD Apr 12, 2025 13:43
[2025-04-11 21:38] LABS: Chloride 104 mmol/L (98-107); Potassium 4.2 mmol/L (3.5-5.1); Sodium 140 mmol/L (136-145)
[2025-04-11 21:39] LABS: Anion Gap 7 (5-15); Carbon Dioxide 29 mmol/L (20-31)
[2025-04-11 21:42] LABS: Calcium 10.5 mg/dL (8.7-10.4); INR 0.98 (0.9-1.15); Prothrombin Time 10.4 sec (9.3-11.8)
[2025-04-11 21:44] LABS: BUN/Creatinine Ratio 17.4 (10.0-20.0); Blood Urea Nitrogen 16 mg/dL (9-23); Glucose 95 mg/dL (74-106)
[2025-04-11] MEDS: VANCOMYCIN 1.25GM/250ML 250 ML IV ONE (22:26)
[2025-04-11 22:35] VITALS: BP 145/87; TEMP 98
[2025-04-11 22:38] VITALS: PULSE 72; RESP 19; O2SAT 98
[2025-04-12] MEDS ORDERED: VANCOMYCIN 1.25GM/250ML 250 ML IV SCH (01:00)
== END 2025-04-12 00:30 | disposition home or self-care (01) ==
LOC: ER 16:50
DX: T82.594A Other mechanical complication of infusion catheter, initial encounter (principal); I25.10 Atherosclerotic heart disease of native coronary artery without angina pectoris; M19.90 Unspecified osteoarthritis, unspecified site; I10 Essential (primary) hypertension; E11.9 Type 2 diabetes mellitus without complications; E78.5 Hyperlipidemia, unspecified; Z98.890 Other specified postprocedural states; Z79.899 Other long term (current) drug therapy; Z88.1 Allergy status to other antibiotic agents; Z88.0 Allergy status to penicillin; Z96.641 Presence of right artificial hip joint; Z86.14 Personal history of Methicillin resistant Staphylococcus aureus infection; Y83.2 Surgical operation with anastomosis, bypass or graft as the cause of abnormal reaction of the patient, or of later complication, without mention of misadventure at the time of the procedure
CPT/HCPCS: 36415; 71045; 80048; 85025; 85610; 85730; 96365; 96375; 99285; J2997

== ENCOUNTER 2025-07-16 15:41 | Inpatient (IN) | payer OTHER ==
[~2025-07-16] VITALS: Ht 188 cm; Wt 107.3 kg
[~2025-07-16 15:41] MED LIST changes: -[UNRECOGNIZED DRUG - CODE] SC; +[UNRECOGNIZED DRUG - CODE] SL
--- NOTE | 2025-07-16 16:43 | ED.PDOC ---
Musculoskeletal HPI Comments This is a 69-year-old male with past medical history of hypertension, coronary artery disease (status post PCI in 2020), dyslipidemia, osteoarthritis, degenerative disc disease referred by his surgeon (Dr. Tavarez, orthopedics) for hip surgery. He had a right hip total replacement on 09 January 2025 (due to o steoarthritis), subsequently got wound infection, and had a subsequent hip revision on 29 January (due to MRSA positive infection), had put on IV vancomycin for 6 weeks and subsequently put on oral doxycycline and rifampin. Around 2 weeks back, his right hip pain worsened, underwent wound aspiration and today he got a phone call from his surgeon office and was informed of having M RSA positive infection, was recommended to go to hospital for a planned hip surgery on Thursday. He also reports of nausea. He denies fever, chest pain, or shortness of breaths. Chief Complaint: Lower Extremity Time Seen by MD: 15:47 Reviewed Notes: Nurses Notes Allergies: Coded Allergies: Amoxicillin (Unverified Adverse Reaction, Unknown, itching , 02/27/25) Clavulanic Acid (Unverified Adverse Reaction, Unknown, itching , 02/27/25) Home Meds Reported Medications Acetylcysteine (Nac) 600 Mg Cap, 600 MG PO DAILY, CAP 02/27/25 Crataegus Oxyacantha ([place] (HAWTHORN) 150 Mg Cap, 150 MG OR DAILY, CAP 02/27/25 Sulfamethoxazole-Trimethoprim (Bactrim) 1 Tab Tab, 1 TAB PO BID, TAB 02/27/25 Gabapentin (Gabapentin) 300 Mg Cap, 900 MG PO DAILY, CAP 02/27/25 Grape Seed Extract (Lucoanthro (Grape Seed Extract) 30 Mg Cap, PO DAILY, CAP 01/13/25 Magnesium Oxide (MAGNESIUM OXIDE) 400 Mg Tab, OR DAILY, TAB 01/13/25 Multiple Vitamin (Multivitamins) Tab, 1 OR DAILY, TAB 01/13/25 Niacin (NIACIN ER) 500 Mg Tab, OR, TAB 01/13/25 Acetaminophen (Tylenol Extra Strength) 500 Mg Tab, 500 MG PO, TAB 01/13/25 Buprenorphine (Brixadi) 8 Mg/0.16 Ml Lauren, 8 MG SC, ML 01/13/25 Isosorbide Mononitrate (Isosorbide Mononitrate Er) 30 Mg Tab, 30 MG PO DAILY, TAB 01/13/25 Paroxetine (PAXIL TABLET) 20 Mg Tb, 40 MG PO DAILY, TAB 01/13/25 Rosuvastatin Calcium (Crestor) 20 Mg Tab, 20 MG PO DAILY, TAB 01/13/25 Metoprolol Succinate (Toprol Xl) 25 Mg Tab, 25 MG PO QPM, TAB 01/13/25 Baclofen (Baclofen) 10 Mg Tab, 25 MG PO TID PRN for 5, TAB 01/13/25 Aspirin (Aspirin) 325 Mg Tab, 325 MG PO DAILY, TAB 01/13/25 Information Source: Patient Mode of Arrival: Ambulatory Location: Right Pain: Moderate Past Medical History PAST MEDICAL HISTORY: Arthritis, CAD, DM, High Lipids, HTN Surgical History: PTCA Family History Family History: Reviewed,noncontributory to illness, No family hx of Cancer, No family hx of DM, No family hx of Heart duncan, No family hx of HTN, No family hx ofKidney duncan, No family hx of Liver duncan, No family hx of Lung duncan, No family hx of Stroke Social History Smoker: Non-Smoker Alcohol: Denies ETOH Use Drugs: Denies Drug Use Lives In: Home Constitutional: denies: chills, diaphoresis, fatigue, fever, malaise, sweats, weakness, others EENTM: denies: blurred vision, double vision, ear bleeding, ear discharge, ear drainage, ear pain, ear ringing, eye pain, eye redness, hearing loss, mouth pain, mouth swelling, nasal discharge, nose bleeding, nose congestion, nose pain, photophobia, tearing, throat pain, throat swelling, voice changes, others Respiratory: denies: cough, hemoptysis, orthopnea, SOB at rest, shortness of breath, SOB with excertion, stridor, wheezing, others Cardiovascular: denies: chest pain, dizzy spells, diaphoresis, Dyspnea on exertion, edema, irregular heart beat, left arm pain, lightheadedness, palpitations, PND, syncope, others Gastrointestinal: denies: abdomen distended, abdominal pain, blood streaked bowels, constipated, diarrhea, dysphagia, difficulty swallowing, hematemesis, melena, nausea, poor appetite, poor fluid intake, rectal bleeding, rectal pain, vomiting, others Genitourinary: denies: burning, dysuria, flank pain, frequency, hematuria, incontinence, penile discharge, penile sore, pain, testicle pain, testicle sw elling, urgency, others Neurological: denies: dizziness, fainting, headache, left sided numbness, left sided weakness, numbness, paresthesia, pre-existing deficit, right sided numbness, right sided weakness, seizure, speech problems, tingling, tremors, weakness, others Musculoskeletal: denies: back pain, gout, joint pain, joint swelling, muscle pain, muscle stiffness, neck pain, others Integumetry: denies: bruises, change in color, change in hair/nails, dryness, laceration, lesions, lumps, rash, wounds, others Allergic/Immunocompromised: denies: Difficulty Healing, Frequent Infections, Hives, Itching, others Hematologic/Lymphatic: denies: anemia, blood clots, easy bleeding, easy bruising, swollen glands, others Endocrine: denies: excessive hunger, excessive sweating, excessive thirst, excessive urination, flushing, intolerance to cold, intolerance to heat, unexplained weight gain, unexplained weight loss, others Psychiatric: denies: anxiety, bipolar disorder, depression, hopeless, panic disorder, schizophrenia, sleepless, suicidal, others Physical Exam General Appearance: No Apparent Distress, Normal HEENT: Normal ENT Inspection, Pharynx Normal, TMs Normal Neck: Full Range of Motion, Non-Tender, Normal, Normal Inspection Respiratory: Chest Non-Tender, Lungs Clear, No Accessory Muscle Use, No Respiratory Distress, Normal Breath Sounds Cardiovascular: No Edema, No JVD, No Murmur, No Gallop, Normal Peripheral Pulses, Regular Rate/Rhythm Breast Exam: Deferred Gastrointestinal: No Organomegaly, Non Tender, No Pulsatile Mass, Normal Bowel Sounds, Soft Genitalia: Deferred Pelvic: Deferred Rectal: Deferred Extremities: No calf tenderness, Normal capillary refill, Normal inspection, Normal range of motion, Non-tender, No pedal edema Neurologic: Alert, dental floss packer II-XII nml as Tested, No Motor Deficits, Normal Affect, Normal Mood, No Sensory Deficits Cerebellar Function: Normal Reflexes: Normal Skin: Dry, Normal Color, Warm Lymphatic: No Adenopathy Was a procedure done? Was a procedure done?: No Differential Diagnosis EXT Differential Diagnosis: Cellulitis, Fracture, Dislocation, Neurovascular injury, Arthritis, Bursitis X-Ray, Labs, Meds, VS Vital Signs Date Time Temp Pulse Resp B/P (MAP) Pulse Ox O2 Delivery O2 Flow Rate FiO2 07/16/25 15:42 97.8 85 15 133/81 95 97.8 Time of 1ST Reevaluation: 15:00 Reevaluation 1ST: Unchanged Patient Education/Counseling: Diagnosis, Treatment, Prognosis, Need For Follow Up Family Education/Counseling: No Family Present Comments Patient came to the hospital due to right hip pain. Patient has history of right hip replacement with MRSA positive wound infection. One week back, he had joint aspiration and today was called of having MRSA positive infection. Patient was referred to hospital for a planned surgery on Thursday. Blood culture, CBC and CMP ordered. The patient was given acetaminophen Vancomycin given Patient will be admitted for possible surgery on Thursday. Departure 1 Departure Time of Disposition: 17:00 Impression: Primary Impression: Infection of right prosthetic hip joint Additional Impression: Osteoarthritis Disposition: ADMITTED INPATIENT Admit to: Med Surg Condition: Guarded Critical Care Note Critical Care Time?: No Stability Stability form required: No Heart Score Heart Score: Heart Score Response (Comments) Value History N/A 0 EKG N/A 0 Age N/A 0 Risk Factors N/A 0 Troponin N/A 0 Total 0 ALVIN STOCK Jul 16, 2025 16:43
[2025-07-16 18:04] LABS: Hematocrit 45.2 % (41.0-53.0); Hemoglobin 15.7 g/dL (13.5-17.5); Mean Corpuscular Hemoglobin 30.0 pg (28.0-32.0); Mean Corpuscular Volume 86.8 fL (80.0-100.0); Nucleated Red Blood Cells % 0.1 %
[2025-07-16 18:20] LABS: INR 0.97 (0.9-1.15); Prothrombin Time 10.3 sec (9.3-11.8)
[2025-07-16 18:21] LABS: Alanine Aminotransferase 34 U/L (7-40); Albumin 4.3 g/dL (3.2-4.8); Alkaline Phosphatase 62 U/L (46-116); Anion Gap 10 (5-15); BUN/Creatinine Ratio 15.3 (10.0-20.0); Bilirubin, Total 0.7 mg/dL (0.2-1.0); Blood Urea Nitrogen 15 mg/dL (9-23); Calcium 10.3 mg/dL (8.7-10.4); Carbon Dioxide 25 mmol/L (20-31); Chloride 103 mmol/L (98-107); Glucose 101 mg/dL (74-106); Potassium 4.2 mmol/L (3.5-5.1); Sodium 138 mmol/L (136-145); Total Protein 7.4 g/dL (5.7-8.2)
[2025-07-16] MEDS: ACETAMINOPHEN 325 MG TAB PO ONE (19:28)
[2025-07-16] MEDS ORDERED: HYDROcodone-ACET 5/325MG TAB PO PRN (20:00)
[2025-07-16] MEDS ORDERED: ONDANSETRON HCL 4 MG/2 ML VIAL IV PRN (20:00)
[2025-07-16] MEDS ORDERED: MORPHINE SULFATE INJ 2 MG/ml SYRG IV PRN (20:00)
[2025-07-16 20:37] LABS: Urine Protein, UAD Negative (Negative)
--- NOTE | 2025-07-16 20:51 | DVH ---
CHEST RADIOGRAPH Indication: right hip pre op Technique: Single frontal view of the chest was obtained Comparison: XY CHEST XRAY 1 VIEW on DOS: 04/11/25, CR CHEST 2 VIEW on DOS: 12/28/24, CHEST TWO VIEWS on DOS: 04/02/21 FINDINGS: Lines and Tubes: Anterior fusion lower cervical spine Lungs: No focal consolidation. Pleura: No effusion. No pneumothorax. Cardiomediastinal contours: Unremarkable Bones: No acute osseous abnormality. IMPRESSION: 1. No acute cardiopulmonary disease.
--- NOTE | 2025-07-16 20:54 | DVH ---
CLINICAL INDICATION: admission TECHNIQUE: 3 radiographic views of the right hip were obtained. Comparison: CT HIP RIGHT WO on DOS: 06/09/25, XY R HIP 1V XRAY on DOS: 01/17/25, CR HIP RIGHT 2-3 VIEW o n DOS: 09/30/24 FINDINGS/IMPRESSION: Total hip replacement on the right. Normal bony alignment No acute fractures or dislocations. Right superior and inferior pubic ramus appear intact. Femoral prosthetic junction appear intact.
[2025-07-16] MEDS: VANCOMYCIN 1GM/250ML KIT 250 ML IV SCH (21:00)
[2025-07-17] VITALS (8 sets, daily range): BP systolic 96–137; BP diastolic 66–81; PULSE 58–101; RESP 10–20; TEMP 97.7–98.6; O2SAT 93–100
--- NOTE | 2025-07-17 00:49 | DVHHP2 ---
Admitting Diagnosis: Right hip infection History of Present Illness History Source: Patient Exam Limitations: No limitations HPI Mr. Austin Lyons is a 69-year-old male with past medical history of hypertension, coronary artery disease (status post PCI in 2020), dyslipidemia, osteoarthritis, degenerative disc disease referred by his surgeon (Dr. Tavarez, orthopedics) for hip surgery. He had a right hip total replacement on 09 January 2025 (due to osteoarthritis), subsequently got wound infection, and had a subsequent hip revision on 29 January (due to MRSA positive infection), had put on IV vancomycin for 6 weeks and subsequently put on oral doxycycline and rifampin. Around 2 weeks back, his right hip pain worsened, underwent wound aspiration x 10 days ago and yesterday he got a phone call from his surgeon office and was informed of having MRSA positive infection, was recommended to go to hospital for a planned hip surgery on Thursday. He also reports of nausea. Patient denies fever, chest pain, or shortness of breath. Home Meds Reported Medications Doxycycline Hyclate (Doxycycline Hyclate) 100 Mg Cap, 100 MG PO BID, MG 07/17/25 Rifampin (RIFAMPIN) 600 Mg Inj, 300 MG IV BID, INJ 07/17/25 Ondansetron HCl (Ondansetron) 4 Mg Tab, 4 MG PO Q4HP PRN for NAUSEA / VOMITING, TAB 07/17/25 Acetylcysteine (Nac) 600 Mg Cap, 600 MG PO DAILY, CAP 02/27/25 Crataegus Oxyacantha ([place]worth (HAWTHORN) 150 Mg Cap, 150 MG OR DAILY, CAP 02/27/25 Sulfamethoxazole-Trimethoprim (Bactrim) 1 Tab Tab, 1 TAB PO BID, TAB 02/27/25 Gabapentin (Gabapentin) 300 Mg Cap, 900 MG PO DAILY, CAP 02/27/25 Grape Seed Extract (Lucoanthro (Grape Seed Extract) 30 Mg Cap, PO DAILY, CAP 01/13/25 Magnesium Oxide (MAGNESIUM OXIDE) 400 Mg Tab, OR DAILY, TAB 01/13/25 Multiple Vitamin (Multivitamins) Tab, 1 OR DAILY, TAB 01/13/25 Niacin (NIACIN ER) 500 Mg Tab, OR, TAB 01/13/25 Acetaminophen (Tylenol Extra Strength) 500 Mg Tab, 500 MG PO, TAB 01/13/25 Buprenorphine (Brixadi) 8 Mg/0.16 Ml Lauren, 8 MG SL DAILY, ML 01/13/25 Isosorbide Mononitrate (Isosorbide Mononitrate Er) 30 Mg Tab, 30 MG PO DAILY, TAB 01/13/25 Paroxetine (PAXIL TABLET) 20 Mg Tb, 50 MG PO DAILY, TAB 01/13/25 Rosuvastatin Calcium (Crestor) 20 Mg Tab, 20 MG PO DAILY, TAB 01/13/25 Metoprolol Succinate (Toprol Xl) 25 Mg Tab, 25 MG PO QPM, TAB 01/13/25 Baclofen (Baclofen) 10 Mg Tab, 25 MG PO BID PRN for 5, TAB 01/13/25 Discontinued Reported Medications Aspirin (Aspirin) 325 Mg Tab, 325 MG PO DAILY, TAB 01/13/25 Past Medical History Cardiac: CAD, HTN Pulmonary: No pertinent Hx Central Nervous System: No pertinent Hx GI: No pertinent Hx Hemotology/Oncology: No pertinent Hx Hepatobiliary: No pertinent Hx Psychiatric: No pertinent Hx Musculoskeletal: Osteoarthritis Rheumotologic: No pertinent Hx Infectious Disease: No peritnent Hx ENT: No pertinent Hx Renal/: No pertinent Hx Endocrine: NIDDM Dermatology: No pertinent Hx Past Surgical History: PTCA, Total hip replacement (right) Patient Family History: Ischemic heart disease G8 MOTHER (53) Smoker: No Hx (Negative) Alocohol: None Drugs: None Lives with: With family Domestic Violence: Neg Review of Systems Constitutional: No symptom reported Ears, Nose, & Throat: No symptom reported Eyes: No symptom reported Pulmonary/Respiratory: No symptom reported Cardiovascular: No symptom reported Gastrointestinal: No symptom reported Genitourinary: No symptom reported Musculoskeletal: Leg pain (right) Skin: No symptom reported Psychiatric: No symptom reported Endocrine: No symptom reported Hemotologic/Lymphatic: No symptom reported H&P Exam Vital Signs Vital Signs Date Time Temp Pulse Resp B/P (MAP) Pulse Ox O2 Delivery O2 Flow Rate FiO2 07/16/25 23:42 98.4 71 18 108/74 (85) 94 98.4 07/16/25 19:29 Room Air General Appeara: Well developed, Well nourished, Normal Appearance Head Exam: Normal inspection Neck Exam: Normal inspection, Non-tender, Normal alignment Eye Exam: bilateral eye Normal inspection, bilateral eye PERRL, bilateral eye EOMI Ear Exam: bilateral ear Auricle normal Nasal Exam: Normal inspection Mouth: Normal Inspection Pulmonary/Respiratory: Normal inspection, Normal breath sounds, Chest non- tender, Lungs clear Cardiovascular/Chest: Normal inspection, Regular rate, Normal Rhythm Peripheral Pulses: 2+ dorsalis pedis (R), 2+ dorsalis pedis (L), 2+ Radial (R), 2+ Radial (L) Abdominal Exam: Normal bowel sounds, Soft, No tenderness Back Exam: Normal inspection Legs: right leg other (pain) CADDIE Exam: Normal hearing, Normal speech, PERRL Motor/Sensory: Normal sensory function, Normal motor function Neuro/Mental St: Alert, Oriented Appearance: Appropriate appearance, Appropriate insight Eye contact/ Speech: Cooperative, Good eye contact, Normal speech Thoughts/Psych: Normal thought pattern Skin Exam: Normal inspection, Normal color, Warm/dry SEPSIS Sepsis Screen Date sepsis recognized/suspect: Jul 16, 2025 Time Sepsis recognized/suspect: 1543 Recent Procedure: No On Antibiotic Therapy: No Respiratory Rate >20: No Heart Rate >90: No Temp<36 C (96.8 F) or >38.3 C: No SBP <90 or MAP <65 mmHG: No New Acute Mental Status Change: No Is the patient on CPAP, BIPAP,: No Physician Orders Admit (07/16/25 19:58) * Orthopedic Consult (07/16/25 19:58) Consistent Carb(Ccho)Diabetes (07/17/25 Breakfast) Full Code (07/16/25 19:58) Electrocardigram (07/16/25 19:58) Stat Ekg For Chest Pain (07/16/25 19:58) Notify Md Of Changes From Base (07/16/25 19:58) Melt Room Operator For 24 Hours (07/16/25 19:58) Emergency Dysrhythmia Protocol (07/16/25 19:58) Rhythm Strips Once Every Shift (07/16/25 19:58) Oxygen By Nasal Cannula (07/16/25 19:58) Npo (Nothing By Mouth) Diet (07/17/25 Breakfast) Ondansetron Hcl (Zofran) (07/16/25 20:00) Morphine Sulfate Injection (07/16/25 20:00) Acetaminophen Tablet (Tylenol Tablet) (07/16/25 20:00) Pantoprazole (Protonix) (07/17/25 10:00) Hydrocodone-Acet 5/325mg Tab ([place] 5/32 (07/16/25 20:00) Ceftriaxone 1gm/50ml (Rocephin) (07/17/25 10:00) Vancomycin Per Pharmacy Protoc (07/16/25 19:58) Sequential Compression Device (07/16/25 19:58) Basic Metabolic Panel (07/17/25 05:00) Basic Metabolic Panel (07/18/25 05:00) Complete Blood Count (07/17/25 05:00) Complete Blood Count (07/18/25 05:00) R Hip Complete Xray (07/16/25 19:58) Chest Xray 1 View (07/16/25 20:16) Vancomycin 1gm/250ml Kit (07/17/25 10:00) Vital Signs Date Time Temp Pulse Resp B/P (MAP) Pulse Ox O2 Delivery O2 Flow Rate FiO2 07/16/25 23:42 98.4 71 18 108/74 (85) 94 98.4 07/16/25 19:29 80 18 96 Room Air 07/16/25 19:29 98.1 80 18 135/83 (100) 96 98.1 Laboratory Tests Test 07/16/25 17:30 White Blood Count 5.7 10^3/uL (4.4-10.8) Labs/Xrays Labs Test 07/16/25 19:30 07/16/25 17:30 Range/Units Urine Color Yellow Yellow Urine Clarity Clear Clear Urine pH 5.0 5.0-9.0 Urine Specific [place] 1.035 1.001-1.035 Urine Protein Negative Negative Urine Ketones Negative Negative Urine Blood Negative Negative /uL Urine Nitrite Negative Negative Urine Bilirubin Negative Negative Urine Urobilinogen Normal Negative mg/dL Urine Leukocyte Esterase Negative Negative /uL Urine RBC <1 0 - 3 /hpf Urine Microscopic WBC 1 0-3 /HPF Urine Squamous Epithelial Cells Few <5 /hpf Urine Bacteria None seen None Seen /hpf Urine Hyaline Casts Few 0 - 2 /lpf Urine Glucose Normal Normal mg/dL White Blood Count 5.7 4.4-10.8 10^3/uL Red Blood Count 5.21 4.5-5.90 10^6/uL Hemoglobin 15.7 13.5-17.5 g/dL Hematocrit 45.2 41.0-53.0 % Mean Corpuscular Volume 86.8 80.0-100.0 fL Mean Corpuscular Hemoglobin 30.0 28.0-32.0 pg Mean Corpuscular Hemoglobin Concent 34.6 32.0-36.0 g/dL Red Cell Distribution Width 15.6 H 11.8-14.3 % Platelet Count 188 140-450 10^3/uL Mean Platelet Volume 7.5 6.9-10.8 fL Neutrophils (%) (Auto) 59.3 37.0-80.0 % Lymphocytes (%) (Auto) 25.2 10.0-50.0 % Monocytes (%) (Auto) 11.3 0.0-12.0 % Eosinophils (%) (Auto) 3.5 0.0-7.0 % Basophils (%) (Auto) 0.7 0.0-2.0 % Neutrophils # (Auto) 3.4 1.6-8.6 10 ^3/uL Lymphocytes # (Auto) 1.4 0.4-5.4 10 ^3/uL Monocytes # (Auto) 0.6 0-1.3 10 ^3/uL Eosinophils # (Auto) 0.2 0-0.8 10 ^3/uL Basophils # (Auto) 0 0-0.2 10 ^3/uL Nucleated Red Blood Cells 0.1 % Prothrombin Time 10.3 9.3-11.8 sec Prothrombin Time INR 0.97 0.9-1.15 Sodium Level 138 136-145 mmol/L Potassium Level 4.2 3.5-5.1 mmol/L Chloride Level 103 98-107 mmol/L Carbon Dioxide Level 25 20-31 mmol/L Anion Gap 10 5-15 Blood Urea Nitrogen 15 9-23 mg/dL Creatinine 0.98 0.700-1.30 mg/dL Glomerular Filtration Rate Calc 85 >90 mL/min BUN/Creatinine Ratio 15.3 10.0-20.0 Serum Glucose 101 74-106 mg/dL Calcium Level 10.3 8.7-10.4 mg/dL Total Bilirubin 0.7 0.2-1.0 mg/dL Aspartate Amino Transferase (AST) 27 13-40 U/L Alanine Aminotransferase (ALT) 34 7-40 U/L Alkaline Phosphatase 62 46-116 U/L Total Protein 7.4 5.7-8.2 g/dL Albumin 4.3 3.2-4.8 g/dL Assessment/Plan Problem List: (1) Infection of right prosthetic hip joint Plan This is a 69 yo male with known listed medical history that presents to the hospital with right leg pain sent by orthopedic surgeon Dr. Luther for possible surgical procedure of right prosthetic hip joint. 1. Infection of right prosthetic hip joint 2. MRSA of right hip 3. Chronic hypertension 4. hx of CAD with PTCA 5. DM type 2 Plan Admit Telemetry unit Orthopedic Surgeon consultation NPO after midnight IV fluids NS IV antibiotics Fall Precautions GI ppx DVT ppx SCD's BLE Discussed all above with patient who verbalizes agreement and understanding of care plan. All questions were answered. Discussed with supervising MD. Plan discussed with: Patient, Other Code Visit Code Visit Total Time (mins): 45 Additional Comments Additional Comments Additional Comments Patient's chart is reviewed. Patient is seen and evaluated and admitted by nurse practitioner this morning. I agree with her evaluation, documentation, assessment and care plan as outlined. ZAC MOREL Jul 17, 2025 00:49 TERRY COX MD Jul 17, 2025 15:25
[2025-07-17 04:44] LABS: Hematocrit 42.1 % (41.0-53.0); Hemoglobin 14.4 g/dL (13.5-17.5); Mean Corpuscular Hemoglobin 29.9 pg (28.0-32.0); Mean Corpuscular Volume 87.6 fL (80.0-100.0); Nucleated Red Blood Cells % 0.1 %
[2025-07-17 04:58] LABS: Chloride 103 mmol/L (98-107); Potassium 4.2 mmol/L (3.5-5.1); Sodium 139 mmol/L (136-145)
[2025-07-17 04:59] LABS: Anion Gap 8 (5-15); Calcium 10.3 mg/dL (8.7-10.4); Carbon Dioxide 28 mmol/L (20-31)
[2025-07-17 05:04] LABS: BUN/Creatinine Ratio 22.5 (10.0-20.0); Blood Urea Nitrogen 20 mg/dL (9-23); Glucose 91 mg/dL (74-106)
[2025-07-17] MEDS ORDERED: VANCOMYCIN PER PHARMACY 0 MG IV SCH (09:00)
[2025-07-17] MEDS: VANCOMYCIN 1GM/250ML KIT 250 ML IV SCH (09:29)
[2025-07-17] MEDS ORDERED: VANCOMYCIN 1GM/250ML KIT 250 ML IV SCH ×2 (10:00)
[2025-07-17] MEDS ORDERED: DOXY100C4 PO (10:46)
[2025-07-17] MEDS ORDERED: RIFA1INJ2 IV (10:46)
[2025-07-17] MEDS ORDERED: ONDA-155 PO (10:46)
[2025-07-17] MEDS: PANTOPRAZOLE 40 MG/10 ML VIAL INJ IV SCH (12:16)
[2025-07-17] MEDS ORDERED: MORPHINE SULF PF 5 MG/10 ML VIAL ONE (14:48)
[2025-07-17] MEDS ORDERED: MIDAZOLAM HCL 2MG/2ML 2ml VIAL (1mg/ml) ONE (15:16)
[2025-07-17] MEDS ORDERED: ONDANSETRON HCL 4 MG/2 ML VIAL ONE (15:45)
[2025-07-17] MEDS ORDERED: KETOROLAC TROMETH 30 MG/ML 1ML VIAL ONE (15:45)
[2025-07-17] MEDS ORDERED: LIDOCAINE 1% INJ PF 5ML AMP ONE (15:45)
[2025-07-17] MEDS ORDERED: PROPOFOL 10 MG/ML 20 ML IV ONE (15:45)
[2025-07-17] MEDS ORDERED: GLYCOPYRROLATE 0.2 MG/ML 1ML VIAL ONE (15:45)
[2025-07-17] MEDS ORDERED: fentaNYL CITRATE 100 MCG/2 ML VL ONE (16:45)
[2025-07-17] MEDS ORDERED: BUPIVACAINE/DEXTROSE MPF 0.75% 2 ML AMP IT ONE (16:46)
[2025-07-17] MEDS ORDERED: ceFAZolin 1GM VL ONE (16:58)
[2025-07-17] MEDS ORDERED: SODIUM CHLORIDE LOCK 10 ML ONE (17:28)
[2025-07-17] MEDS ORDERED: HYDROmorphone HCL 2 MG/ML VL/or syr ONE (19:24)
--- NOTE | 2025-07-17 19:34 | DVHOP2 ---
Operative Report - 2 Report Details Date: 07/17/25 Preop Diagnosis: Periprosthetic joint infectection right total hip arthroplasty Postop Diagnosis: Same Surgeon: Jhonatan Carrasco MD Wet Process Miller: Lanre Anesthesiologist: Aaron MCLEAN Anesthesia: General Implant: Antibiotic spacer (medium size) 54mm acetabulum Consent: The patient was informed of the risks and benefits of the procedure. These include but are not limited to complications of anesthesia, postoperative infection, incomplete relief of symptoms, recurrence of symptoms, damage to blood vessels, nerves and tendons, deep venous thrombosis, pulmonary embolism and possible need for repeat surgery in the future. Estimated Blood Loss: 500ml Findings: Fluid pocket about greater trochanter with tracking into the implant Name of Procedure Performed Explantation of infected cementless right total hip arthroplasty Extended trochanteric osteotomy (ETO) as described by Elsi et al. Irrigation and debridement Placement of articulating antibiotic spacer Fixation of ETO with two cables Collection of three intraoperative cultures Submission of implants, femoral and acetabular bone for pathology and culture Procedure Details Procedure Details: Preoperative medical and anesthesia clearance was obtained. The patient was seen in the preoperative area, and the operative site was confirmed and marked by myself, with verification by the orthopedic team and the patient. All questions were addressed, documentation was reviewed, and the patient was transported to the operating room in stable condition. Upon arrival in the OR, anesthesia was administered. The patient received prophylactic antibiotics per infectious disease recommendations. A surgical time-out was performed, confirming the correct operative site. The patient was positioned laterally with appropriate padding. The nonoperative leg was fitted with a compression stocking and sequential compression device. The operative site was prepped and draped in the standard sterile fashion. The surgical team utilized body exhaust suits. A posterior approach was utilized. The previous incision was incorporated. Dissection was carried through the subcutaneous tissue using electrocautery. The fascia overlying the gluteus corby was split in line with its fibers, and a portion of the distal iliotibial band was incised. A Charnley self-retaining retractor was placed, with care taken to protect the sciatic nerve. The hip was exposed, and the short external rotators were detached from the greater trochanter. Capsulotomy was performed, and the hip was dislocated posteriorly. Due to extensive femoral component fixation and the presence of infection, an extended trochanteric osteotomy (ETO) was performed as described by Elsi et al. The osteotomy was carefully created and the femoral component was explanted in its entirety. All cementless components were removed. The acetabular component was also explanted. All explanted hardware was sent for pathology and culture. Thorough irrigation and debridement were performed, with removal of all grossly infected and necrotic tissue. Three separate intraoperative cultures were obtained from the femoral canal, acetabulum, and periprosthetic tissue. Additional femoral and acetabular bone specimens were sent for pathology and culture. The femoral canal and acetabulum were prepared for placement of an articulating antibiotic spacer. The spacer was fashioned and implanted, ensuring appropriate length, offset, and stability. The extended trochanteric osteotomy was reduced and secured with two cerclage cables. The hip was reduced and assessed for stability and range of motion. The wound was irrigated with dilute betadine and pulsatile lavage. Local anesthetic cocktail was injected into the soft tissues. The capsule and short external rotators were repaired with #5 FiberWire. The wound was irrigated again, and the fascia was closed with #1 absorbable suture. Subcutaneous tissue was closed with 2-0 absorbable suture, and the skin was closed with zeynep. A sterile dressing was applied, and drapes were removed. The patient was transferred to the recovery room in stable condition. Instrument and sponge counts were correct. I was present for the entire procedure. Plan: Transfer to PACU and then to the floor Toe-touch weight bearing (TTWB) with posterior hip precautions Infectious disease consult for management of periprosthetic joint infection Daily dry dressing changes Anticipate placement of a PICC line for 68 weeks of intravenous antibiotics, with serial ESR/CRP monitoring until normalization Following completion of antibiotics, a two-week drug holiday will be observed, with repeat ESR/CRP and right hip aspiration prior to planned reimplantation Reimplantation likely to include GLORIA modular stem and multihole acetabular cup Continue multimodal pain management and DVT prophylaxis as indicated Physical therapy for mobilization with hip precautions, TTWB Specimen: 3 sets of specimens from the right hip. Labeled 1, 2,3. As well as path and culture sent of the bone and implant Condition Fair Disposition Home with Health Services JHONATAN CARRASCO DO Jul 17, 2025 19:34
[2025-07-17] MEDS ORDERED: VANCOMYCIN 1.25GM/250ML 250 ML IV SCH ×2 (20:00→22:45)
[2025-07-17 20:14] LABS: Hematocrit 41.2 % (41.0-53.0); Hemoglobin 14.1 g/dL (13.5-17.5)
[2025-07-17] MEDS ORDERED: ONDANSETRON HCL 4 MG/2 ML VIAL IV PRN (20:15)
[2025-07-17] MEDS ORDERED: hydrALAZINE HCL 20 MG/ML VL IV PRN (20:15)
[2025-07-17] MEDS ORDERED: HYDROmorphone HCL 2 MG/ML VL/or syr IV PRN (20:15)
[2025-07-18] VITALS (10 sets, daily range): BP systolic 110–122; BP diastolic 71–79; PULSE 70–104; RESP 18–81; TEMP 98.1–98.7; O2SAT 94–100
[2025-07-18] MEDS: VANCOMYCIN 1.25GM/250ML 250 ML IV SCH (00:59)
[2025-07-18] MEDS ORDERED: ALPR0.254 PO (04:19)
[2025-07-18] MEDS ORDERED: LACTCAP35 OR (04:25)
[2025-07-18] MEDS ORDERED: ZOLP5TAB5 PO (04:25)
[2025-07-18 06:47] LABS: Chloride 104 mmol/L (98-107); Potassium 5.0 mmol/L (3.5-5.1); Sodium 139 mmol/L (136-145)
[2025-07-18 06:48] LABS: Anion Gap 8 (5-15); Carbon Dioxide 27 mmol/L (20-31); Hematocrit 39.8 % (41.0-53.0); Hemoglobin 13.7 g/dL (13.5-17.5); Mean Corpuscular Hemoglobin 29.9 pg (28.0-32.0); Mean Corpuscular Volume 86.9 fL (80.0-100.0); Nucleated Red Blood Cells % 0.1 %
[2025-07-18 06:49] LABS: Calcium 9.0 mg/dL (8.7-10.4)
[2025-07-18 06:54] LABS: BUN/Creatinine Ratio 20.0 (10.0-20.0); Blood Urea Nitrogen 18 mg/dL (9-23)
[2025-07-18 07:01] LABS: Glucose 125 mg/dL (74-106)
[2025-07-18] MEDS: VANCOMYCIN HCL 1000 MG VL ONE (07:41)
[2025-07-18] MEDS: TRANEXAMIC ACID 20 ML ONE (07:41)
[2025-07-18] MEDS: BUPIVACAINE 0.25% INJ 50ML VIAL ONE (07:41)
--- NOTE | 2025-07-18 07:58 | ECG ---
[facility] Test Date: 2025-07-17 Test Time: 11:52:31 Pat Name: ELIZABETH HERNANDEZ Department: Room: 0287T Gender: M Barge Hand: eli : 1955 Requested By: ZAC MOREL Order Number: [id number] Reading MD: Asad Saab Measurements Intervals [place] Rate: 68 P: 74 ID: [id number] QRS: 93 QRSD: 115 T: 29 QT: 398 QTc: 424 Interpretive Statements Sinus rhythm Prolonged ID interval Left posterior fascicular block Anteroseptal infarct, age indeterminate Electronically Signed On 07-25-2025 17:58:24 PDT by Asad Saab Please click the below link to view image of tracing.
[2025-07-18] MEDS: ACETAMINOPHEN 325 MG TAB PO PRN (09:08)
--- NOTE | 2025-07-18 12:37 | DVHPN2 ---
Progress Note - Dictate Date Seen: Jul 18, 2025 Medical Necessity Reason Pt with a Central, PICC or Fol: No Subjective Patient underwent a successful revision of his hip surgery. Pain is controlled. No complaints. Waiting for PICC line placement today. vital signs Vital Sign Date Time Temp Pulse Resp B/P (MAP) Pulse Ox O2 Delivery O2 Flow Rate FiO2 07/18/25 09:00 98.4 91 18 118/79 (92) 96 98.4 07/17/25 21:15 Room Air 100 07/17/25 20:30 6.0 Total Intake and Output 07/17/25 07/17/25 07/18/25 15:00 23:00 07:00 Intake Total 200 ml Balance 200 ml medications Current Medications Medications Dose Ordered Sig/Julio Route Start Time Stop Time Status Last Admin Dose Admin Ondansetron HCl 4 mg Q6HPRN PRN IV 07/16/25 20:00 Morphine Sulfate 2 mg Q6HP PRN IV 07/16/25 20:00 Acetaminophen 650 mg Q6HPRN PRN PO 07/16/25 20:00 07/18/25 09:08 650 MG Pantoprazole Sodium 40 mg DAILY IV 07/17/25 10:00 07/18/25 09:08 40 MG Acetaminophen/ Hydrocodone Bitart 1 tab Q6HPRN PRN PO 07/16/25 20:00 Ceftriaxone Sodium 50 ml @ 100 mls/hr DAILY IV 07/17/25 10:00 07/18/25 09:11 100 MLS/HR Vancomycin HCl 250 ml @ 250 mls/hr DAILY IV 07/17/25 10:00 UNV Vancomycin HCl 250 ml @ 250 mls/hr DAILY IV 07/17/25 10:00 Cancel Vancomycin HCl 0 ml @ 0 mls/hr UD IV 07/17/25 09:00 Vancomycin HCl 250 ml @ 200 mls/hr Q12H IV 07/18/25 01:00 07/18/25 00:59 200 MLS/HR objective Alert awake oriented x3. Comfortable in bed without distress. HEENT neck supple no JVD. Heart regular rate and rhythm S1-S2. Lungs fair air movement without rales wheezes. Abdomen obese soft positive bowel sounds. Extremities no edema positive pulses. laboratory and microbiology Laboratory Tests 07/18/25 06:13 Test 07/18/25 06:13 Range/Units Serum Glucose 125 H 74-106 mg/dL Assessment/Plan I will resume his home medications. Continue physical therapy. Once PICC line is placed we will arrange for IV antibiotics. Otherwise continue rest of supportive care and treatment. Further clinical management per clinical course and recommendations from the surgeon. Discussed with the patient regarding care plan. Problems(with codes): (1) Osteoarthritis (2) Infection of right prosthetic hip joint Plan discussed with: Patient TERRY COX MD Jul 18, 2025 12:37
[2025-07-18] MEDS ORDERED: ZOLPIDEM TARTRATE 5 MG TAB PO PRN (12:45)
--- NOTE | 2025-07-18 14:33 | DVHPN2 ---
Progress Note - Dictate Date Seen: Jul 18, 2025 Has the PT tested + for MRSA If YES, has PT been informed?: Yes Medical Necessity Reason Pt with a Central, PICC or Fol: No Subjective Patient transferred to chair only. Pain reasonably well controlled. Awaiting PICC line vital signs Vital Sign Date Time Temp Pulse Resp B/P (MAP) Pulse Ox O2 Delivery O2 Flow Rate FiO2 07/18/25 09:00 98.4 91 18 118/79 (92) 96 98.4 07/17/25 21:15 Room Air 100 07/17/25 20:30 6.0 Total Intake and Output 07/17/25 07/17/25 07/18/25 15:00 23:00 07:00 Intake Total 200 ml Balance 200 ml medications Current Medications Medications Dose Ordered Sig/Julio Route Start Time Stop Time Status Last Admin Dose Admin Ondansetron HCl 4 mg Q6HPRN PRN IV 07/16/25 20:00 Morphine Sulfate 2 mg Q6HP PRN IV 07/16/25 20:00 Acetaminophen 650 mg Q6HPRN PRN PO 07/16/25 20:00 07/18/25 09:08 650 MG Pantoprazole Sodium 40 mg DAILY IV 07/17/25 10:00 07/18/25 09:08 40 MG Acetaminophen/ Hydrocodone Bitart 1 tab Q6HPRN PRN PO 07/16/25 20:00 Ceftriaxone Sodium 50 ml @ 100 mls/hr DAILY IV 07/17/25 10:00 07/18/25 09:11 100 MLS/HR Vancomycin HCl 250 ml @ 250 mls/hr DAILY IV 07/17/25 10:00 UNV Vancomycin HCl 250 ml @ 250 mls/hr DAILY IV 07/17/25 10:00 Cancel Vancomycin HCl 0 ml @ 0 mls/hr UD IV 07/17/25 09:00 Vancomycin HCl 250 ml @ 200 mls/hr Q12H IV 07/18/25 01:00 07/18/25 00:59 200 MLS/HR Alprazolam 0.25 mg DAILY PO 07/19/25 10:00 UNV Paroxetine HCl 50 mg DAILY PO 07/19/25 10:00 UNV Gabapentin 300 mg TID PO 07/18/25 14:00 UNV Zolpidem Tartrate 5 mg HSPRN PRN PO 07/18/25 12:45 UNV Isosorbide Mononitrate 30 mg DAILY PO 07/19/25 10:00 UNV Metoprolol Succinate 25 mg QPM PO 07/18/25 18:00 UNV Atorvastatin Calcium 20 mg HS PO 07/18/25 22:00 UNV Apixaban 2.5 mg BID PO 07/18/25 22:00 08/22/25 21:59 UNV objective alert and oriented x4 dressing intact no calf ttp or edema distal nv intact laboratory and microbiology Laboratory Tests 07/18/25 06:13 Test 07/18/25 06:13 Range/Units Serum Glucose 125 H 74-106 mg/dL Assessment/Plan POD #1 s/p explant/cement spacer for infected total hip (MRSA pos) stable postop Plan: Consult Dr Shailesh Corley Vanco PT touch down weight bearing RLE with walker eliquis for DVT prophylaxis Will need home IV abx 6-8 weeks with periodic ESR, CRP to monitor response After abx course complete. If labs normalized then 2 weeks off abx followed by aspiration to check if infection eradicated then can be considered for revision total hip DME : wheel chair for home Plan discussed with: Patient LUIS ROBB MD Jul 18, 2025 14:33
--- NOTE | 2025-07-18 14:44 | DVH ---
EXAM: XY PELVIS AP CLINICAL INDICATION: postop TECHNIQUE: XY PELVIS AP Comparison: XY R HIP COMPLETE XRAY on DOS: 07/16/25, XY PELVIS AP on DOS: 03/01/25, XY PELVIS AP on DOS: 01/17/25, XY R HIP 1V XRAY on DOS: 01/17/25, CR HIP RIGHT 2-3 VIEW on DOS: 09/30/24 FINDINGS/IMPRESSION: Status post right total hip arthroplasty. Moderate left hip osteoarthritis.
[2025-07-18] MEDS: GABAPENTIN 300 MG CAP PO ONE (17:52)
[2025-07-18] MEDS: METOPROLOL SUCCINATE XL 50 MG TAB PO SCH (17:52)
[2025-07-18] MEDS: GABAPENTIN 300 MG CAP PO SCH (17:53)
[2025-07-18 18:35] LABS: Hematocrit 36.9 % (41.0-53.0); Hemoglobin 12.7 g/dL (13.5-17.5)
[2025-07-18] MEDS: ACETAMINOPHEN IV 1000 MG/100ML (10MG/ML) IV ONE (19:00)
[2025-07-18] MEDS: CELECOXIB 100 MG CAP PO ONE (19:30)
[2025-07-18] MEDS: KETOROLAC TROMETH 30 MG/ML 1ML VIAL IV ONE (19:30)
[2025-07-18] MEDS: APIXABAN 2.5 MG TAB PO SCH (21:23)
[2025-07-18] MEDS: ATORVASTATIN 20 MG TAB PO SCH (21:23)
[2025-07-19] VITALS (8 sets, daily range): BP systolic 99–118; BP diastolic 68–76; PULSE 82–107; RESP 17–20; TEMP 98.1–98.9; O2SAT 91–98
[2025-07-19] MEDS: PARoxetine 20 MG TAB PO SCH (10:23)
[2025-07-19] MEDS: ISOSORBIDE MONONITRATE ER 60 MG TAB PO SCH (10:25)
[2025-07-19] MEDS: ALPRAZolam 0.25 MG TAB PO SCH (10:25)
[2025-07-19 10:32] LABS: Hematocrit 34.4 % (41.0-53.0); Hemoglobin 11.7 g/dL (13.5-17.5); Mean Corpuscular Hemoglobin 29.8 pg (28.0-32.0); Mean Corpuscular Volume 87.9 fL (80.0-100.0); Nucleated Red Blood Cells % 0.0 %
--- NOTE | 2025-07-19 11:57 | DVHPN2 ---
Progress Note - Dictate Date Seen: Jul 19, 2025 Has the PT tested + for MRSA If YES, has PT been informed?: Yes Medical Necessity Reason Pt with a Central, PICC or Fol: No Subjective Patient transferred to chair only. Pain reasonably well controlled. Awaiting PICC line. No additional therapy yet. vital signs Vital Sign Date Time Temp Pulse Resp B/P (MAP) Pulse Ox O2 Delivery O2 Flow Rate FiO2 07/19/25 10:25 104/69 07/19/25 09:50 98.1 86 17 96 98.1 07/18/25 20:26 Room Air* 0 21 Total Intake and Output 07/18/25 07/18/25 07/19/25 15:00 23:00 07:00 Intake Total 50 ml 670 ml 950 ml Output Total 650 ml Balance 50 ml 670 ml 300 ml medications Current Medications Medications Dose Ordered Sig/Julio Route Start Time Stop Time Status Last Admin Dose Admin Ondansetron HCl 4 mg Q6HPRN PRN IV 07/16/25 20:00 Morphine Sulfate 2 mg Q6HP PRN IV 07/16/25 20:00 Acetaminophen 650 mg Q6HPRN PRN PO 07/16/25 20:00 07/19/25 05:30 650 MG Pantoprazole Sodium 40 mg DAILY IV 07/17/25 10:00 07/19/25 10:21 40 MG Acetaminophen/ Hydrocodone Bitart 1 tab Q6HPRN PRN PO 07/16/25 20:00 Ceftriaxone Sodium 50 ml @ 100 mls/hr DAILY IV 07/17/25 10:00 07/19/25 10:23 100 MLS/HR Vancomycin HCl 250 ml @ 250 mls/hr DAILY IV 07/17/25 10:00 UNV Vancomycin HCl 250 ml @ 250 mls/hr DAILY IV 07/17/25 10:00 Cancel Vancomycin HCl 0 ml @ 0 mls/hr UD IV 07/17/25 09:00 Vancomycin HCl 250 ml @ 200 mls/hr Q12H IV 07/18/25 01:00 07/19/25 01:44 200 MLS/HR Alprazolam 0.25 mg DAILY PO 07/19/25 10:00 Paroxetine HCl 50 mg DAILY PO 07/19/25 10:00 07/19/25 10:23 50 MG Gabapentin 300 mg TID PO 07/18/25 14:00 07/19/25 05:30 300 MG Zolpidem Tartrate 5 mg HSPRN PRN PO 07/18/25 12:45 Isosorbide Mononitrate 30 mg DAILY PO 07/19/25 10:00 07/19/25 10:25 30 MG Metoprolol Succinate 25 mg QPM PO 07/18/25 18:00 07/18/25 17:52 25 MG Atorvastatin Calcium 20 mg HS PO 07/18/25 22:00 07/18/25 21:23 20 MG Apixaban 2.5 mg BID PO 07/18/25 22:00 08/22/25 21:59 07/19/25 10:23 2.5 MG objective alert and oriented x4 dressing intact with minimal spotting no calf ttp or edema distal nv intact laboratory and microbiology Laboratory Tests 07/19/25 06:11 07/18/25 06:13 Test 07/18/25 06:13 Range/Units Serum Glucose 125 H 74-106 mg/dL Assessment/Plan POD #2 s/p explant/cement spacer for infected total hip (MRSA pos) stable postop Plan: Consult Dr Shailesh Corley Vanco PT touch down weight bearing RLE with walker eliquis for DVT prophylaxis Will need home IV abx 6-8 weeks with periodic ESR, CRP to monitor response After abx course complete. If labs normalized then 2 weeks off abx followed by aspiration to check if infection eradicated then can be considered for revision total hip DME : wheel chair for home Plan discussed with: Patient LUIS ROBB MD Jul 19, 2025 11:57
--- NOTE | 2025-07-19 12:56 | DVHPN2 ---
Progress Note - Dictate Date Seen: Jul 19, 2025 Has the PT tested + for MRSA If YES, has PT been informed?: Yes Medical Necessity Reason Pt with a Central, PICC or Fol: No Subjective Patient underwent a successful revision of his hip surgery. PICC line he has not yet placed and apparently scheduled for today. Waiting for Infectious Disease to make recommendations for IV vancomycin at home for six weeks. vital signs Vital Sign Date Time Temp Pulse Resp B/P (MAP) Pulse Ox O2 Delivery O2 Flow Rate FiO2 07/19/25 10: 104/69 07/19/25 09:50 98.1 86 17 96 98.1 07/18/25 20:26 Room Air* 0 21 Total Intake and Output 07/18/25 07/18/25 07/19/25 15:00 23:00 07:00 Intake Total 50 ml 670 ml 950 ml Output Total 650 ml Balance 50 ml 670 ml 300 ml medications Current Medications Medications Dose Ordered Sig/Julio Route Start Time Stop Time Status Last Admin Dose Admin Ondansetron HCl 4 mg Q6HPRN PRN IV 07/16/25 20:00 Morphine Sulfate 2 mg Q6HP PRN IV 07/16/25 20:00 Acetaminophen 650 mg Q6HPRN PRN PO 07/16/25 20:00 07/19/25 05:30 650 MG Pantoprazole Sodium 40 mg DAILY IV 07/17/25 10:00 07/19/25 10:21 40 MG Acetaminophen/ Hydrocodone Bitart 1 tab Q6HPRN PRN PO 07/16/25 20:00 Ceftriaxone Sodium 50 ml @ 100 mls/hr DAILY IV 07/17/25 10:00 07/19/25 10:23 100 MLS/HR Vancomycin HCl 250 ml @ 250 mls/hr DAILY IV 07/17/25 10:00 UNV Vancomycin HCl 250 ml @ 250 mls/hr DAILY IV 07/17/25 10:00 Cancel Vancomycin HCl 0 ml @ 0 mls/hr UD IV 07/17/25 09:00 Vancomycin HCl 250 ml @ 200 mls/hr Q12H IV 07/18/25 01:00 07/19/25 12:38 200 MLS/HR Alprazolam 0.25 mg DAILY PO 07/19/25 10:00 Paroxetine HCl 50 mg DAILY PO 07/19/25 10:00 07/19/25 10:23 50 MG Gabapentin 300 mg TID PO 07/18/25 14:00 07/19/25 05:30 300 MG Zolpidem Tartrate 5 mg HSPRN PRN PO 07/18/25 12:45 Isosorbide Mononitrate 30 mg DAILY PO 07/19/25 10:00 07/19/25 10:25 30 MG Metoprolol Succinate 25 mg QPM PO 07/18/25 18:00 07/18/25 17:52 25 MG Atorvastatin Calcium 20 mg HS PO 07/18/25 22:00 07/18/25 21:23 20 MG Apixaban 2.5 mg BID PO 07/18/25 22:00 08/22/25 21:59 07/19/25 10:23 2.5 MG objective Alert awake oriented x3. Comfortable in bed without distress. HEENT neck supple no JVD. Heart regular rate and rhythm S1-S2. Lungs fair air movement without rales wheezes. Abdomen obese soft positive bowel sounds. Extremities no edema positive pulses. laboratory and microbiology Laboratory Tests 07/19/25 06:11 07/18/25 06:13 Test 07/18/25 06:13 Range/Units Serum Glucose 125 H 74-106 mg/dL Assessment/Plan I will resume his home medications. Once PICC line placed today we will have Infectious Disease to arrange for IV vancomycin. Plan to discharge him home tomorrow with home health, wheel chair, trapeze to his home bed for mobility and other DME as needed. Discussed with the patient. 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
--- NOTE | 2025-07-19 15:08 | DVHCONRES ---
Date Seen: Jul 19, 2025 Resident Creating Document: TIMMY MORRIS RESIDENT Referring Physician Dr. Gonzalez. Reason for Consultation periprosthetic joint MRSA infection right hip s/p explant needing chronic IV abx History of Present Illness Mr. Austin Lyons is a 69-year-old male with a history of hypertension, obstructive sleep apnea (on CPAP), coronary artery disease (status post PCI in 2020), dyslipidemia, osteoarthritis (including moderate left hip osteoarthritis), and degenerative disc disease. He was referred by Dr. Tavarez (orthopedics) for evaluation following complications from a right total hip arthroplasty. -Original surgery was performed on January 09, 2025, for moderately degenerative osteoarthritis by Dr. Tavarez (orthopedics). -Postoperatively, he developed a MRSA-positive wound infection, necessitating a hip revision on January 29, 2025. He completed a 6-week course of IV vancomycin and was transitioned to oral doxycycline and rifampin. -On March 01, 2025 he underwent surgical repeat washout. Preliminary operative cultures are growing MRSA. Pelvic X-ray on March 01 showed no evidence of acute fracture or dislocation. Findings included right hip arthroplasty, antibiotic beads within the joint space, and a drainage catheter overlying the soft tissue of the right hip. Repeated blood cultures have been negative. Vancomycin IV [Started on 03/01 - Ongoing/noted till May 2025] -Prior to hospitalization patient was on chronic suppressive therapy of oral Doxycycline and Rifampin. Approximately two weeks ago, he experienced worsening right hip pain. Wound aspiration was performed 10 days ago, and he was informed yesterday by his surgeons office that MRSA was again detected. He has been advised to present to the hospital for planned hip surgery on July 17, 2025 for explant and placement of a cement spacer for an infected total hip (MRSA-positive). Now postoperative day 2 post explant on IV Ceftriaxone and Vancomycin. Past Medical History hypertension, obstructive sleep apnea (on CPAP), coronary artery disease (status post PCI in 2020), dyslipidemia, osteoarthritis (including moderate left hip osteoarthritis), and degenerative disc disease Past Surgical History right total hip arthroplasty, PTCA Family History: Ischemic heart disease G8 MOTHER (53) Family History Noncontributory to the hospitalization Social History Lives at home with family, denies smoking, alcohol consumption, recreational drug or any other risky behavior. Allergies: Coded Allergies: Amoxicillin (Unverified Adverse Reaction, Unknown, itching , 02/27/25) Clavulanic Acid (Unverified Adverse Reaction, Unknown, itching , 02/27/25) Home Meds Reported Medications Lactobacillus (PROBIOTIC) Cap, 1 OR, CAP 07/18/25 Zolpidem Tartrate (Zolpidem Tartrate) 5 Mg Tab, 1 TAB PO QPM, #30 TAB 2 Refills 07/18/25 Alprazolam (Alprazolam) 0.25 Mg Tab, 1 TAB PO DAILY, #30 TAB 07/18/25 Doxycycline Hyclate (Doxycycline Hyclate) 100 Mg Cap, 100 MG PO BID, MG 07/17/25 Rifampin (RIFAMPIN) 600 Mg Inj, 300 MG IV BID, INJ 07/17/25 Ondansetron HCl (Ondansetron) 4 Mg Tab, 4 MG PO Q4HP PRN for NAUSEA / VOMITING, TAB 07/17/25 Acetylcysteine (Nac) 600 Mg Cap, 600 MG PO DAILY, CAP 02/27/25 Crataegus Oxyacantha ([place] (HA[place]ORN) 150 Mg Cap, 150 MG OR DAILY, CAP 02/27/25 Sulfamethoxazole-Trimethoprim (Bactrim) 1 Tab Tab, 1 TAB PO BID, TAB 02/27/25 Gabapentin (Gabapentin) 300 Mg Cap, 900 MG PO DAILY, CAP 02/27/25 Grape Seed Extract (Lucoanthro (Grape Seed Extract) 30 Mg Cap, PO DAILY, CAP 01/13/25 Magnesium Oxide (MAGNESIUM OXIDE) 400 Mg Tab, OR DAILY, TAB 01/13/25 Multiple Vitamin (Multivitamins) Tab, 1 OR DAILY, TAB 01/13/25 Niacin (NIACIN ER) 500 Mg Tab, OR, TAB 01/13/25 Acetaminophen (Tylenol Extra Strength) 500 Mg Tab, 500 MG PO, TAB 01/13/25 Buprenorphine (Brixadi) 8 Mg/0.16 Ml Lauren, 8 MG SL DAILY, ML 01/13/25 Isosorbide Mononitrate (Isosorbide Mononitrate Er) 30 Mg Tab, 30 MG PO DAILY, TAB 01/13/25 Paroxetine (PAXIL TABLET) 20 Mg Tb, 50 MG PO DAILY, TAB 01/13/25 Rosuvastatin Calcium (Crestor) 20 Mg Tab, 20 MG PO DAILY, TAB 01/13/25 Metoprolol Succinate (Toprol Xl) 25 Mg Tab, 25 MG PO QPM, TAB 01/13/25 Baclofen (Baclofen) 10 Mg Tab, 25 MG PO BID PRN for 5, TAB 01/13/25 Discontinued Reported Medications Aspirin (Aspirin) 325 Mg Tab, 325 MG PO DAILY, TAB 01/13/25 Current Medications Current Medications Medications (Trade) Dose Ordered Sig/Julio Route PRN Reason Start Time Stop Time Status Last Admin Alprazolam (Xanax Tablet) 0.25 mg DAILY PO 07/19/25 10:00 Paroxetine HCl (Paxil Tablet) 50 mg DAILY PO 07/19/25 10:00 07/19/25 10:23 Isosorbide Mononitrate (Imdur Er Tablet) 30 mg DAILY PO 07/19/25 10:00 07/19/25 10:25 Metoprolol Succinate (Toprol Xl) 25 mg QPM PO 07/18/25 18:00 07/18/25 17:52 Atorvastatin Calcium (Lipitor) 20 mg HS PO 07/18/25 22:00 07/18/25 21:23 Apixaban (Eliquis) 2.5 mg BID PO 07/18/25 22:00 08/22/25 21:59 07/19/25 10:23 Review of Systems General: patient denies fever, fatigue, weakens, sweating, any recent changes in appetite and weight HEENT: No headaches, visual changes, hearing loss, tinnitus, nasal congestion and discharge, and sore throat. Cardiovascular: Denies chest pain, palpitations, dyspnea on exertion, orthopnea, or claudication. Respiratory: No cough, and wheezing. Gastrointestinal: Denies nausea, vomiting, dysphagia, odynophagia, heartburn, abdominal pain, flatulence, bloating, diarrhea, constipation, change in stool, or blood in stool. Genitourinary: No dysuria, hematuria, discharge, frequency, urgency, nocturia, incontinence, and urinary retention. Endocrine: No heat or cold intolerance, polydipsia, polyuria, and polyphagia. Neurological: No dizziness, extremity weakness and numbness, tremors, gait disturbance, seizures, and memory impairment. Psychiatric: Denies depression, anxiety,or insomnia. Musculoskeletal: Denies neck pain, stiffness and swelling, back pain, muscle weakness, joint pain, stiffness, swelling, or limited range of motion on right hip, surgical site well dressed. Skin: No rashes, itching, skin lesion, changes in hair, nail, skin texture and breast. Hematologic/Lymphatic: Denies easy bruising, bleeding tendencies, or lymph node enlargement. Vital Signs Vital Signs Date Time Temp Pulse Resp B/P (MAP) Pulse Ox O2 Delivery O2 Flow Rate FiO2 07/19/25 14:32 98.6 92 18 99/69 (79) 95 98.6 07/18/25 20:26 Room Air* 0 21 Physical Exam General Appearance: Alert, Oriented X3, Cooperative, No acute distress, postoperatively pain well controlled HEENT: Atraumatic, PERRLA, EOMI, Mucous membrane moist/pink Respiratory: Clear to auscultation, Normal air movement Cardiovascular: Regular rate, Normal S1, Normal S2, No murmurs, no chest wall tenderness Abdominal: Normal bowel sounds, Soft, No tenderness, No hepatosplenomegaly, No masses Extremities: No clubbing, No cyanosis, No edema, Normal pulses, No tenderness/swelling. Results surgical site no complication noted, were dressed and clean post surgical area. NO Concerning signs of DVT noted. Skin: No rashes, No breakdown, No significant lesion Neuro: Normal gait, Normal speech, Strength at 5/5 X4 ext, Normal tone, Sensation intact, Cranial nerves 3-12 NL, Reflexes 2+, no distal focal neuro deficits or neurovascular deficits noted Psych/Mental Status: Mental status NL, Mood NL Labs/Diagnostic Data Labs Test 07/19/25 12:06 07/19/25 06:11 07/18/25 06:13 07/16/25 19:30 Range/Units Vancomycin Level Trough 14.9 H 5-10 ug/mL White Blood Count 6.3 # 4.4-10.8 10^3/uL Red Blood Count 3.91 L 4.5-5.90 10^6/uL Hemoglobin 11.7 L 13.5-17.5 g/dL Hematocrit 34.4 L 41.0-53.0 % Mean Corpuscular Volume 87.9 80.0-100.0 fL Mean Corpuscular Hemoglobin 29.8 28.0-32.0 pg Mean Corpuscular Hemoglobin Concent 33.9 32.0-36.0 g/dL Red Cell Distribution Width 15.6 H 11.8-14.3 % Platelet Count 152 140-450 10^3/uL Mean Platelet Volume 7.9 6.9-10.8 fL Neutrophils (%) (Auto) 65.4 37.0-80.0 % Lymphocytes (%) (Auto) 19.6 10.0-50.0 % Monocytes (%) (Auto) 13.0 H 0.0-12.0 % Eosinophils (%) (Auto) 1.5 0.0-7.0 % Basophils (%) (Auto) 0.5 0.0-2.0 % Neutrophils # (Auto) 4.1 1.6-8.6 10 ^3/uL Lymphocytes # (Auto) 1.2 0.4-5.4 10 ^3/uL Monocytes # (Auto) 0.8 0-1.3 10 ^3/uL Eosinophils # (Auto) 0.1 0-0.8 10 ^3/uL Basophils # (Auto) 0 0-0.2 10 ^3/uL Nucleated Red Blood Cells 0.0 % Creatinine 0.81 0.700-1.30 mg/dL Glomerular Filtration Rate Calc 97 >90 mL/min Sodium Level 139 136-145 mmol/L Potassium Level 5.0 3.5-5.1 mmol/L Chloride Level 104 98-107 mmol/L Carbon Dioxide Level 27 20-31 mmol/L Anion Gap 8 5-15 Blood Urea Nitrogen 18 9-23 mg/dL BUN/Creatinine Ratio 20.0 10.0-20.0 Serum Glucose 125 H 74-106 mg/dL Calcium Level 9.0 8.7-10.4 mg/dL Urine Color Yellow Yellow Urine Clarity Clear Clear Urine pH 5.0 5.0-9.0 Urine Specific [place] 1.035 1.001-1.035 Urine Protein Negative Negative Urine Ketones Negative Negative Urine Blood Negative Negative /uL Urine Nitrite Negative Negative Urine Bilirubin Negative Negative Urine Urobilinogen Normal Negative mg/dL Urine Leukocyte Esterase Negative Negative /uL Urine RBC <1 0 - 3 /hpf Urine Microscopic WBC 1 0-3 /HPF Urine Squamous Epithelial Cells Few <5 /hpf Urine Bacteria None seen None Seen /hpf Urine Hyaline Casts Few 0 - 2 /lpf Urine Glucose Normal Normal mg/dL Test 07/16/25 17:30 Range/Units Prothrombin Time 10.3 9.3-11.8 sec Prothrombin Time INR 0.97 0.9-1.15 Total Bilirubin 0.7 0.2-1.0 mg/dL Aspartate Amino Transferase (AST) 27 13-40 U/L Alanine Aminotransferase (ALT) 34 7-40 U/L Alkaline Phosphatase 62 46-116 U/L Total Protein 7.4 5.7-8.2 g/dL Albumin 4.3 3.2-4.8 g/dL Microbiology Date/Time Source Procedure Growth Status 07/17/25 19:11 Hip Right Gram Stain - Final Resulted 07/17/25 19:11 Hip Right Anaerobic Culture - Preliminary Resulted 07/17/25 19:11 Hip Right Aerobic Culture - Preliminary Resulted 07/16/25 17:30 Blood Blood Culture - Preliminary NO GROWTH AFTER 48 HOURS OF INCUBATION. Resulted Assessment #Right hip Arthroplasty on January with subsequent complication with undeserving MRSA PJI. #Right hip prosthetic infection with the IT band disruption status post excisional debridement of right hip with a revision of femoral head with placement of antibiotic beads now needing explant #Moderate to severe osteoarthritis #Disc degenerative disease #Hypertension controlled #Dyslipidemia #Anxiety disorder #Sleep apnea currently CPAP at night and while asleep #Hx of CAD with PTCA #DM type 2 Plan/Recommendation #Continue IV vancomycin with goal trough 15-20. We will add 600 mg of oral rifampin daily with discontinuation of ceftriaxone. #Follow right hip specimen, bone and implant cultures to check along with the blood cultures, final home IV regimen based on new culture and sensitivity as high risk of rifampin resistance on prolonged use. #Orthopedic surgical procedure ideally should contain cefazolin and vancomycin perioperatively. #PICC line placement, Home Health at discharge, home IV abx 6-8 weeks with periodic ESR, CRP to monitor response based on new cultures. #Continue DVT prophylaxis, physical therapy and medical treatment. #Post IV antibiotics, check for infection eradication prior to reimplantation of prosthesis. #Check for HGB A1c and rule out HIV #Close outpatient follow up with the Infectious Disease team along with Orthopedics. Discussed with Dr. Cash. Thank you for the opportunity to consult on outpatient. Infectious disease we will follow up with the patient. Plan discussed with: Patient ARTUROTIMMY RESIDENT Jul 19, 2025 15:08
[2025-07-19] MEDS: rifAMPin 300 MG CAP PO SCH (16:30)
[2025-07-19] MEDS: SODIUM CHLOR 0.9% PF (SALINE LOCK) 10ML VIAL/SYR IV SCH (22:31)
[2025-07-20 01:00] VITALS: BP 120/70; PULSE 102; RESP 18; TEMP 99.8; O2SAT 95
[2025-07-20 05:00] VITALS: BP 120/75; PULSE 84; RESP 20; TEMP 98.2; O2SAT 100
[2025-07-20 07:25] LABS: Hematocrit 35.4 % (41.0-53.0); Hemoglobin 12.0 g/dL (13.5-17.5); Mean Corpuscular Hemoglobin 31.0 pg (28.0-32.0); Mean Corpuscular Volume 91.3 fL (80.0-100.0); Nucleated Red Blood Cells % 0.0 %
[2025-07-20 07:55] VITALS: PULSE 78; PULSE 82; RESP 17; O2SAT 96
--- NOTE | 2025-07-20 08:27 | DVHPN2 ---
Progress Note Date Seen: Jul 20, 2025 Has the PT tested + for MRSA If YES, has PT been informed?: Yes Medical Necessity Reason Pt with a Central, PICC or Fol: Yes The following are medically ne: PICC Line Subjective Patient reports: No new complaints Objective vital signs Vital Sign Date Time Temp Pulse Resp B/P (MAP) Pulse Ox O2 Delivery O2 Flow Rate FiO2 07/20/25 05:00 98.2 84 20 120/75 (90) 100 98.2 07/19/25 20:00 Room Air* 0 21 Total Intake and Output 07/19/25 07/19/25 07/20/25 15:00 23:00 07:00 Intake Total 50 ml 200 ml 750 ml Output Total 450 ml Balance 50 ml 200 ml 300 ml medications Current Medications Medications Dose Ordered Sig/Julio Route Start Time Stop Time Status Last Admin Dose Admin Ondansetron HCl 4 mg Q6HPRN PRN IV 07/16/25 20:00 Morphine Sulfate 2 mg Q6HP PRN IV 07/16/25 20:00 Acetaminophen 650 mg Q6HPRN PRN PO 07/16/25 20:00 07/19/25 05:30 650 MG Pantoprazole Sodium 40 mg DAILY IV 07/17/25 10:00 07/19/25 10:21 40 MG Acetaminophen/ Hydrocodone Bitart 1 tab Q6HPRN PRN PO 07/16/25 20:00 Vancomycin HCl 250 ml @ 250 mls/hr DAILY IV 07/17/25 10:00 UNV Vancomycin HCl 250 ml @ 250 mls/hr DAILY IV 07/17/25 10:00 Cancel Vancomycin HCl 0 ml @ 0 mls/hr UD IV 07/17/25 09:00 Vancomycin HCl 250 ml @ 200 mls/hr Q12H IV 07/18/25 01:00 07/20/25 01:06 200 MLS/HR Alprazolam 0.25 mg DAILY PO 07/19/25 10:00 Paroxetine HCl 50 mg DAILY PO 07/19/25 10:00 07/19/25 10:23 50 MG Gabapentin 300 mg TID PO 07/18/25 14:00 07/20/25 06:51 300 MG Zolpidem Tartrate 5 mg HSPRN PRN PO 07/18/25 12:45 Isosorbide Mononitrate 30 mg DAILY PO 07/19/25 10:00 07/19/25 10:25 30 MG Metoprolol Succinate 25 mg QPM PO 07/18/25 18:00 07/18/25 17:52 25 MG Atorvastatin Calcium 20 mg HS PO 07/18/25 22:00 07/19/25 22:30 20 MG Apixaban 2.5 mg BID PO 07/18/25 22:00 08/22/25 21:59 07/19/25 22:30 2.5 MG Rifampin 300 mg BID PO 07/19/25 16:30 07/19/25 22:32 300 MG Patient Own Medication 1 DAILY PO 07/20/25 10:00 UNV Sodium Chloride 10 ml QSHIFT@10,22 IV 07/19/25 22:00 07/19/25 22:31 10 ML Patient Own Medication 1 DAILY PO 07/20/25 10:00 UNV Examination: GENERAL:Normal, MSK:Abnormal laboratory and microbiology Laboratory Tests 07/20/25 05:24 07/18/25 06:13 Test 07/18/25 06:13 Range/Units Serum Glucose 125 H 74-106 mg/dL Microbiology Date/Time Source Procedure Growth Status 07/17/25 19:11 Hip Right Gram Stain - Final Resulted 07/17/25 19:11 Hip Right Anaerobic Culture - Preliminary Resulted 07/17/25 19:11 Hip Right Aerobic Culture - Preliminary Resulted 07/16/25 17:30 Blood Blood Culture - Preliminary NO GROWTH AFTER 72 HOURS OF INCUBATION. Resulted Problem List/Assessment/Plan Problem List/Assessment/Plan 69 year old male who is s/p right hip I & D with explant POD [address] line in place and abx orders from Dr. Cash received 2. Patient aware of toe touch weight bearing restrictions 3. patient to follow up in [address] Hunt on 08/01/2025 at 2:30 4. Dressing to remain in place until first postop visit 5. prescriptions for pain medication sent to [facility] pharmacy this morning 6. patient is clear for discharge home today from orthopedic standpoint with the following discharge recommendations: POSTOPERATIVE Posterior Total Hip INSTRUCTIONS Activity: 1. You should continue with toe touch only weight bearing restrictions and wheelchair for the next 2-6 weeks as advised by Dr. Hunt 2. A physical therapist will visit you at home. 3. Although guarantees against a dislocation do not exist, the hip was noted to be sufficiently stable in surgery. Below are motions that you should not do for 4-6 weeks, depending on the surgical approach used. If there are questions, please call the office. a. Bend forward past 90 degrees b. Sit on a regular low chair, couch, car seat etc... c. Cross your legs d. Use a regular low toilet seat. e. Sleep on your stomach or on either side. 3. High impact activity such as jumping, aerobics, tennis, and skiing are not permitted during the first 3 months after surgery. These activities can contribute to accelerated wear and should be done with caution after this time. Discuss this with your surgeon if you have questions. 4. Although a bath or whirlpool is NOT permitted during the first 2-3 weeks, you may shower as soon as you get home from the hospital provided you are able to keep your bandage clean and dry and there is no wound drainage. If you are unable to place a secured covering over your bandage bed bath/sponge bath may likely be the more appropriate option. 5. Swimming is not permitted until the wound is healed, which typically occurs approximately 3-4 weeks after surgery. Wound Management: If the wound is draining please change the gauze pad on the wound until it stops. If drainage persists past 10 days please notify our office. If there is a sticky gel dressing over your wound, you may leave this in place for as long as it is clean and dry. If it becomes loose or causes skin irritation, it is OK to remove it and place clean gauze over your wound. 1. You might notice some bruising around the surgical site, this is normal. 2. Check your temperature on a daily basis. Please note that a low-grade temp below 101 is not uncommon after surgery especially during the first 3 days. Notify the office if your temperature spikes above 101.5 after the 3rd post- operative date. 3. Many patients experience significant swelling in the thigh, this may extend below the knee and sometimes to the ankle. Swelling increases during the first week and subsides during the following week. 4. Provided you have been on a blood thinner since surgery and have been up and about at least three times per day, the risk of a blood clot is low and this swelling is an expected part of recovery. It will largely or completely resolve by your first post-operative visit. 5. [place], if present, will be removed at 2 weeks during initial post-op visit. Medications: 1. You will be discharged with pain medication, Aspirin as a blood thinner and sometimes an anti-inflammatory medication such as Celebrex or Mobic might be prescribed. Please follow the instructions regarding these medicines as provided by your nurse at the hospital. 2. Narcotic pain medication has side effects, including constipation. Please ensure you continue to take stool softeners (Colace, Senna) while taking your pain medication to help protect against constipation. Getting up and moving around at least a few times per day helps with this also. 3. Lovenox 40 Sq x 12 days followed by one regular strength 325 mg coated aspirin daily for 4 weeks after surgery. Then, take one baby aspirin, 81 mg daily for 6 weeks more. A major, yet preventable, complication of Orthopaedic Surgery is a blood clot (DVT). It is important not to miss any doses of this important medication. 4. You should restart all of your prescription medications once discharged unless specifically instructed otherwise. 5. Herbal supplements may be restarted 2 weeks after surgery. Miscellaneous issues: 1. Driving is not permitted within the first 2 weeks. 2. Your first postoperative visit will take place 2weeks after discharge. Please call the office to arrange this appointment. 3. Antibiotic preventative treatment is required before dental or other invasive procedures. Please ask your surgeon about this at your first postoperative visit. Your hip replacement contains metal which may activate metal detectors. You may wish to carry a letter from your surgeon to communicate this to security personnel. If you experience chest pain, shortness of breath or severe painful calf swelling, go to the nearest emergency room to be evaluated. Please call our office once your situation is stabilized. Plan discussed with: Patient Date of Service: Jul 20, 2025 Billing Provider: RAYMOND HUNT MD Common Visit Codes: NOT BILLABLE STACEY JIMENEZ NP Jul 20, 2025 08:27
[2025-07-20 09:00] VITALS: BP 130/79; PULSE 94; RESP 20; TEMP 99; O2SAT 96
[2025-07-20] MEDS: LIDOCAINE 1% (LOCAL ANESTH.) PF 5ml SDV ID ONE (09:33)
[2025-07-20] MEDS ORDERED: PATIENTS OWN MEDICATION PO SCH (10:00)
[2025-07-20] MEDS: BUPRENORPHINE 8 MG PO SCH (10:45)
--- NOTE | 2025-07-20 12:14 | DVHPN2 ---
Consult Progress Note Date Seen: Jul 20, 2025 Subjective Patient reports: No new complaints Objective vital signs Vital Sign Date Time Temp Pulse Resp B/P (MAP) Pulse Ox O2 Delivery O2 Flow Rate FiO2 07/20/25 09:47 117/71 07/20/25 09:00 99.0 94 20 96 99.0 07/20/25 07:55 Room Air* 0 21 Total Intake and Output 07/19/25 07/19/25 07/20/25 15:00 23:00 07:00 Intake Total 50 ml 200 ml 750 ml Output Total 450 ml Balance 50 ml 200 ml 300 ml General: patient denies fever, fatigue, weakens, sweating, any recent changes in appetite and weight HEENT: No headaches, visual changes, hearing loss, tinnitus, nasal congestion and discharge, and sore throat. Cardiovascular: Denies chest pain, palpitations, dyspnea on exertion, orthopnea, or claudication. Respiratory: No cough, and wheezing. Gastrointestinal: Denies nausea, vomiting, dysphagia, odynophagia, heartburn, abdominal pain, flatulence, bloating, diarrhea, constipation, change in stool, or blood in stool. Genitourinary: No dysuria, hematuria, discharge, frequency, urgency, nocturia, incontinence, and urinary retention. Endocrine: No heat or cold intolerance, polydipsia, polyuria, and polyphagia. Neurological: No dizziness, extremity weakness and numbness, tremors, gait disturbance, seizures, and memory impairment. Psychiatric: Denies depression, anxiety, or insomnia. Musculoskeletal: Denies neck pain, stiffness and swelling, back pain, muscle weakness, joint pain, stiffness, swelling, or limited range of motion on right hip, surgical site well dressed. Skin: No rashes, itching, skin lesion, changes in hair, nail, skin texture and breast. Hematologic/Lymphatic: Denies easy bruising, bleeding tendencies, or lymph node enlargement. medications Current Medications Medications Dose Ordered Sig/Julio Route Start Time Stop Time Status Last Admin Dose Admin Ondansetron HCl 4 mg Q6HPRN PRN IV 07/16/25 20:00 Morphine Sulfate 2 mg Q6HP PRN IV 07/16/25 20:00 Acetaminophen 650 mg Q6HPRN PRN PO 07/16/25 20:00 07/19/25 05:30 650 MG Pantoprazole Sodium 40 mg DAILY IV 07/17/25 10:00 07/20/25 09:35 40 MG Acetaminophen/ Hydrocodone Bitart 1 tab Q6HPRN PRN PO 07/16/25 20:00 Vancomycin HCl 250 ml @ 250 mls/hr DAILY IV 07/17/25 10:00 UNV Vancomycin HCl 250 ml @ 250 mls/hr DAILY IV 07/17/25 10:00 Cancel Vancomycin HCl 0 ml @ 0 mls/hr UD IV 07/17/25 09:00 Vancomycin HCl 250 ml @ 200 mls/hr Q12H IV 07/18/25 01:00 07/20/25 01:06 200 MLS/HR Alprazolam 0.25 mg DAILY PO 07/19/25 10:00 Paroxetine HCl 50 mg DAILY PO 07/19/25 10:00 07/20/25 09:36 50 MG Gabapentin 300 mg TID PO 07/18/25 14:00 07/20/25 06:51 300 MG Zolpidem Tartrate 5 mg HSPRN PRN PO 07/18/25 12:45 Isosorbide Mononitrate 30 mg DAILY PO 07/19/25 10:00 07/20/25 09:47 30 MG Metoprolol Succinate 25 mg QPM PO 07/18/25 18:00 07/18/25 17:52 25 MG Atorvastatin Calcium 20 mg HS PO 07/18/25 22:00 07/19/25 22:30 20 MG Apixaban 2.5 mg BID PO 07/18/25 22:00 08/22/25 21:59 07/20/25 09:36 2.5 MG Rifampin 300 mg BID PO 07/19/25 16:30 07/20/25 09:40 300 MG Sodium Chloride 10 ml QSHIFT@10,22 IV 07/19/25 22:00 07/20/25 09:35 10 ML Patient Own Medication 1 DAILY PO 07/20/25 10:00 07/20/25 10:45 1 laboratory and microbiology Laboratory Tests 07/20/25 05:24 07/18/25 06:13 Test 07/18/25 06:13 Range/Units Serum Glucose 125 H 74-106 mg/dL Problem List/Assessment/Plan Problem List/Assessment/Plan Mr. Austin Lyons, a 69-year-old male with multiple comorbidities including hypertension, coronary artery disease, and osteoarthritis, was referred for evaluation following complications from a right total hip arthroplasty. 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 Management of chronic PJI typically involves a two-stage surgical approach: initial removal of the infected implant and placement of an antibiotic-loaded spacer, followed by prolonged intravenous antibiotic therapy and eventual reimplantation once infection markers normalize. Original surgery was performed on January 09, 2025, for moderately degenerative osteoarthritis by Dr. Tavarez (orthopedics). Postoperatively, he developed a MRSA-positive wound infection, necessitating a hip revision on January 29, 2025. He completed a 6-week course of IV vancomycin and was transitioned to oral doxycycline and rifampin. On March 01, 2025 he underwent surgical repeat washout. Preliminary operative cultures are growing MRSA. Pelvic X-ray on March 01 showed no evidence of acute fracture or dislocation. Findings included right hip arthroplasty, antibiotic beads within the joint space, and a drainage catheter overlying the soft tissue of the right hip. Repeated blood cultures have been negative. Vancomycin IV [Started on 03/01 - Ongoing/noted till May 2025] Prior to hospitalization patient was on chronic suppressive therapy of oral Doxycycline and Rifampin. Approximately two weeks ago, he experienced worsening right hip pain. Wound aspiration was performed 10 days ago, and he was informed yesterday by his surgeons office that MRSA was again detected. He has been advised to present to the hospital for planned hip surgery on July 17, 2025 for explant and placement of a cement spacer for an infected total hip (MRSA-positive). Now postoperative day 2 post explant on IV Ceftriaxone and Vancomycin. Assessment #Right hip Arthroplasty on January with subsequent complication with undeserving MRSA PJI. 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 #Ruled out HIV #SUSANA due to [facility]. Plan/Recommendation #Continue hydration with bmp follow up. #S/p PICC line Continue IV vancomycin with goal trough 15-20. We will add 600 mg of oral rifampin daily with discontinuation of ceftriaxone. Home Health at discharge, home IV abx 6-8 weeks with periodic ESR, CRP to monitor response based on new cultures. #Follow right hip specimen, bone and implant cultures to check along with the blood cultures, final home IV regimen based on new culture and sensitivity as high risk of rifampin resistance on prolonged use. #Orthopedic surgical procedure ideally should contain cefazolin and vancomycin perioperatively. #Continue DVT prophylaxis, appropriate pain management physical therapy and medical treatment. #Post IV antibiotics, check for infection eradication prior to reimplantation of prosthesis. #Close outpatient follow up with the Infectious Disease team along with Orthopedics. #From ID perspective ok to get discharged home with follow up with ID. Discussed with Dr. Cash. Thank you for the opportunity to consult on outpatient. Infectious disease we will follow up with the patient. Plan discussed with: Patient TIMMY MORRIS RESIDENT Jul 20, 2025 12:14
[2025-07-20] MEDS ORDERED: LACTATED RINGER'S 1,000 ML IV SCH (12:15)
[2025-07-20] MEDS ORDERED: RIFA300C58 PO (12:42)
--- NOTE | 2025-07-20 12:44 | DVHDS2 ---
Discharge Summary Date of Admission Jul 16, 2025 at 19:58 Date of Discharge: Jul 20, 2025 Labs/Diagnostic Data: Laboratory Results Test 07/20/25 05:24 07/19/25 17:00 07/19/25 12:06 07/19/25 06:11 White Blood Count 9.4 10^3/uL (4.4-10.8) Red Blood Count 3.87 10^6/uL (4.5-5.90) Hemoglobin 12.0 g/dL (13.5-17.5) Hematocrit 35.4 % (41.0-53.0) Mean Corpuscular Volume 91.3 fL (80.0-100.0) Mean Corpuscular Hemoglobin 31.0 pg (28.0-32.0) Mean Corpuscular Hemoglobin Concent 33.9 g/dL (32.0-36.0) Red Cell Distribution Width 15.5 % (11.8-14.3) Platelet Count 140 10^3/uL (140-450) Mean Platelet Volume 9.2 fL (6.9-10.8) Neutrophils (%) (Auto) 70.0 % (37.0-80.0) Lymphocytes (%) (Auto) 22.1 % (10.0-50.0) Monocytes (%) (Auto) 5.6 % (0.0-12.0) Eosinophils (%) (Auto) 1.5 % (0.0-7.0) Basophils (%) (Auto) 0.8 % (0.0-2.0) Neutrophils # (Auto) 6.6 10 ^3/uL (1.6-8.6) Lymphocytes # (Auto) 2.1 10 ^3/uL (0.4-5.4) Monocytes # (Auto) 0.5 10 ^3/uL (0-1.3) Eosinophils # (Auto) 0.1 10 ^3/uL (0-0.8) Basophils # (Auto) 0.1 10 ^3/uL (0-0.2) Nucleated Red Blood Cells 0.0 % Creatinine 1.31 mg/dL (0.700-1.30) Glomerular Filtration Rate Calc 60 mL/min (>90) HIV (1&2) Antibody Negative (Negative) C-Reactive Protein High Sensitivity 10.95 mg/dL (<1.0) Vancomycin Level Trough 14.9 ug/mL (5-10) Erythrocyte Sedimentation Rate 8 mm/hr (0-20) Hemoglobin A1c 6.0 % A1C (<5.7) Test 07/18/25 06:13 07/16/25 19:30 07/16/25 17:30 Sodium Level 139 mmol/L (136-145) Potassium Level 5.0 mmol/L (3.5-5.1) Chloride Level 104 mmol/L (98-107) Carbon Dioxide Level 27 mmol/L (20-31) Anion Gap 8 (5-15) Blood Urea Nitrogen 18 mg/dL (9-23) BUN/Creatinine Ratio 20.0 (10.0-20.0) Serum Glucose 125 mg/dL (74-106) Calcium Level 9.0 mg/dL (8.7-10.4) Urine Color Yellow (Yellow) Urine Clarity Clear (Clear) Urine pH 5.0 (5.0-9.0) Urine Specific [place] 1.035 (1.001-1.035) Urine Protein Negative (Negative) Urine Ketones Negative (Negative) Urine Blood Negative /uL (Negative) Urine Nitrite Negative (Negative) Urine Bilirubin Negative (Negative) Urine Urobilinogen Normal mg/dL (Negative) Urine Leukocyte Esterase Negative /uL (Negative) Urine RBC <1 /hpf (0 - 3) Urine Microscopic WBC 1 /HPF (0-3) Urine Squamous Epithelial Cells Few /hpf (<5) Urine Bacteria None seen /hpf (None Seen) Urine Hyaline Casts Few /lpf (0 - 2) Urine Glucose Normal mg/dL (Normal) Prothrombin Time 10.3 sec (9.3-11.8) Prothrombin Time INR 0.97 (0.9-1.15) Total Bilirubin 0.7 mg/dL (0.2-1.0) Aspartate Amino Transferase (AST) 27 U/L (13-40) Alanine Aminotransferase (ALT) 34 U/L (7-40) Alkaline Phosphatase 62 U/L (46-116) Total Protein 7.4 g/dL (5.7-8.2) Albumin 4.3 g/dL (3.2-4.8) Other Laboratory Tests 07/20/25 05:24 07/18/25 06:13 Brief Hx & Hospital Course: Mr. Austin Lyons, a 69-year-old male with multiple comorbidities including hypertension, coronary artery disease, and osteoarthritis, was referred for evaluation following complications from a right total hip arthroplasty. 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 Management of chronic PJI typically involves a two-stage surgical approach: initial removal of the infected implant and placement of an antibiotic-loaded spacer, followed by prolonged intravenous antibiotic therapy and eventual reimplantation once infection markers normalize. Original surgery was performed on January 09, 2025, for moderately degenerative osteoarthritis by Dr. Tavarez (orthopedics). Postoperatively, he developed a MRSA-positive wound infection, necessitating a hip revision on January 29, 2025. He completed a 6-week course of IV vancomycin and was transitioned to oral doxycycline and rifampin. On March 01, 2025 he underwent surgical repeat washout. Preliminary operative cultures are growing MRSA. Pelvic X-ray on March 01 showed no evidence of acute fracture or dislocation. Findings included right hip arthroplasty, antibiotic beads within the joint space, and a drainage catheter overlying the soft tissue of the right hip. Repeated blood cultures have been negative. Vancomycin IV [Started on 03/01 - Ongoing/noted till May 2025] Prior to hospitalization patient was on chronic suppressive therapy of oral Doxycycline and Rifampin. Approximately two weeks ago, he experienced worsening right hip pain. Wound aspiration was performed 10 days ago, and he was informed yesterday by his surgeons office that MRSA was again detected. He has been advised to present to the hospital for planned hip surgery on July 17, 2025 for explant and placement of a cement spacer for an infected total hip (MRSA-positive). Now postoperative day 2 post explant on IV Ceftriaxone and Vancomycin. He is admitted and underwent another hip washout and temporary implantation of prosthesis. Orthopedic surgery recommended continue another 4-6 weeks of IV antibiotics. Therefore PICC line is placed. He is evaluated by Infectious Disease and arranged six weeks of IV antibiotics with the vancomycin. Patient is advised to follow up with the Infectious Disease to further manage his vancomycin levels and a have follow up labs for kidney function. Patient once again told the risks of catheter associated infections and blood clots as well as risks of kidney failure including potential need for dialysis with vancomycin antibiotic. Patient verbalized and accepted these risks and felt benefits outweigh the risks at present. Otherwise while in the hospital patient remained clinically stable. Home health is being arranged as well as IV antibiotics being arranged. Patient recommended to use wheelchair and minimal weight- bearing for her orthopedic recommendations. Otherwise given clinically stable he has been discharged home. Patient verbalized understanding of his hospital diagnosis, treatment he received, discharge medications including side effects, discharge instructions and agree with the follow up plan of care as outlined. Operations or Procedures Operative Report - 2 Report Details Date: 07/17/25 Preop Diagnosis: Periprosthetic joint infectection right total hip arthroplasty Postop Diagnosis: Same Surgeon: Jhonatan Valdes MD Internet Manager: Lanre Anesthesiologist: Aaron MCLEAN Anesthesia: General Implant: Antibiotic spacer (medium size) 54mm acetabulum Consent: The patient was informed of the risks and benefits of the procedure. These include but are not limited to complications of anesthesia, postoperative infection, incomplete relief of symptoms, recurrence of symptoms, damage to blood vessels, nerves and tendons, deep venous thrombosis, pulmonary embolism and possible need for repeat surgery in the future. Estimated Blood Loss: 500ml Findings: Fluid pocket about greater trochanter with tracking into the implant Name of Procedure Performed Explantation of infected cementless right total hip arthroplasty Extended trochanteric osteotomy (ETO) as described by Elsi et al. Irrigation and debridement Placement of articulating antibiotic spacer Fixation of ETO with two cables Collection of three intraoperative cultures Submission of implants, femoral and acetabular bone for pathology and culture Plan: Transfer to PACU and then to the floor Toe-touch weight bearing (TTWB) with posterior hip precautions Infectious disease consult for management of periprosthetic joint infection Daily dry dressing changes Anticipate placement of a PICC line for 68 weeks of intravenous antibiotics, with serial ESR/CRP monitoring until normalization Following completion of antibiotics, a two-week drug holiday will be observed, with repeat ESR/CRP and right hip aspiration prior to planned reimplantation Reimplantation likely to include GLORIA modular stem and multihole acetabular cup Continue multimodal pain management and DVT prophylaxis as indicated Physical therapy for mobilization with hip precautions, TTWB Specimen: 3 sets of specimens from the right hip. Labeled 1, 2,3. As well as path and culture sent of the bone and implant Condition Fair Disposition 2 Home with Health Services JHONATAN VALDES DO Jul 17, 2025 19:34 Condition at Discharge: Stable Final Diagnosis/Problems List chronic hip infection s/p I&D now with PICC line and antibiotics for six weeks Secondary Diagnosis: #Right hip Arthroplasty on January with subsequent complication with undeserving MRSA PJI. 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 Discharge Disposition: Home with Health Services Discharge Instruct/Medications Diet: Consistent carbohydrate, Cardiac 2g Na,low cholest Activity: Light activity Follow Up/Referral: Dr.Surdyka nicholas after 2 weeks post op follow up and Dr.Kevin Shailesh HANSEN doctor 10-14 days and to adjust your vancomycin levels Medications: as prescribed and home meds Scheduled Alprazolam (Alprazolam), 1 TAB PO DAILY, (Reported) Buprenorphine (Brixadi), 8 MG SL DAILY, (Reported) Gabapentin (Gabapentin), 900 MG PO DAILY, (Reported) Isosorbide Mononitrate (Isosorbide Mononitrate Er), 30 MG PO DAILY, (Reported) Magnesium Oxide (Magnesium Oxide), Unknown Dose OR DAILY, (Reported) Metoprolol Succinate (Toprol Xl), 25 MG PO QPM, (Reported) Multiple Vitamin (Multivitamins), 1 OR DAILY, (Reported) Paroxetine (Paxil Tablet), 50 MG PO DAILY, (Reported) Rifampin (Rifampin), 600 MG PO DAILY Rosuvastatin Calcium (Crestor), 20 MG PO DAILY, (Reported) Zolpidem Tartrate (Zolpidem Tartrate), 1 TAB PO QPM, (Reported) Scheduled PRN Ondansetron HCl (Ondansetron), 4 MG PO Q4HP PRN for NAUSEA / VOMITING, (Reported) Miscellaneous Medications Acetaminophen (Tylenol Extra Strength), 500 MG PO, (Reported) Lactobacillus (Probiotic), 1 OR, (Reported) Niacin (Niacin Er), Unknown Dose OR, (Reported) Discontinued Medications Acetylcysteine (Nac), 600 MG PO DAILY, (Reported) Aspirin (Aspirin), 325 MG PO DAILY, (Reported) Baclofen (Baclofen), 25 MG PO BID PRN for 5, (Reported) Crataegus Oxyacantha (Blain (Blain), 150 MG OR DAILY, (Reported) Doxycycline Hyclate (Doxycycline Hyclate), 100 MG PO BID, (Reported) Grape Seed Extract (Lucoanthro (Grape Seed Extract), Unknown Dose PO DAILY, (Reported) Rifampin (Rifampin), 300 MG IV BID, (Reported) Sulfamethoxazole-Trimethoprim (Bactrim), 1 TAB PO BID, (Reported) Discharge Statement: "Patient was advised to return to the ER or call 911 if any headaches, dizziness, shortness of breath, chest pain, abdominal pain, bleeding, fevers, or worsening of medical condition. Patient was counseled about treatment plan, medications, possible side effects, patientverbalized understanding. All questions were answered to the best of my ability. This discharge took greater then 30 minutes in planning, reviewing documentation, counseling the patient, and discussing with other team members." DME: Diagnosis: s/p right hip explant for total hip infection with restricted weight bearing ASSESSMENT ASSESSMENT Assessment chronic hip infection s/p I&D now with PICC line and antibiotics for six weeks TERRY COX MD Jul 20, 2025 12:44
[2025-07-20 13:00] VITALS: BP 118/78; PULSE 92; RESP 20; TEMP 98.4; O2SAT 94
[2025-07-20 13:08] VITALS: BP 118/78; PULSE 92; RESP 20; TEMP 98.4
== END 2025-07-20 16:30 | disposition home health service (06) | DRG 466 ==
LOC: ER 15:41 → OVERFLOW 19:58 → TELE-WESTW 07-17 10:14
PROVIDERS: ADMIT Nurse Practitioner Family; ATTEND Nurse Practitioner Family
PROC: 0SP90JZ Removal of Synthetic Substitute from Right Hip Joint, Open Approach (ICD-10-PCS; 2025-07-17)
PROC: 0QB80ZZ Excision of Right Femoral Shaft, Open Approach (ICD-10-PCS; 2025-07-17)
PROC: 0SR90EZ Replacement of Right Hip Joint with Articulating Spacer, Open Approach (ICD-10-PCS; principal; 2025-07-17 16:38)
PROC: 02HV33Z Insertion of Infusion Device into Superior Vena Cava, Percutaneous Approach (ICD-10-PCS; 2025-07-19)
PROC: B548ZZA Ultrasonography of Superior Vena Cava, Guidance (ICD-10-PCS; 2025-07-19)
DX: T84.51XA Infection and inflammatory reaction due to internal right hip prosthesis, initial encounter (principal); N17.0 Acute kidney failure with tubular necrosis; R71.0 Precipitous drop in hematocrit; B95.62 Methicillin resistant Staphylococcus aureus infection as the cause of diseases classified elsewhere; E11.9 Type 2 diabetes mellitus without complications; E66.9 Obesity, unspecified; Z68.30 Body mass index [BMI] 30.0-30.9, adult; I10 Essential (primary) hypertension; F41.9 Anxiety disorder, unspecified; E78.5 Hyperlipidemia, unspecified; Z95.5 Presence of coronary angioplasty implant and graft; Z87.891 Personal history of nicotine dependence; Z79.84 Long term (current) use of oral hypoglycemic drugs; I25.10 Atherosclerotic heart disease of native coronary artery without angina pectoris; Y83.1 Surgical operation with implant of artificial internal device as the cause of abnormal reaction of the patient, or of later complication, without mention of misadventure at the time of the procedure; Z88.1 Allergy status to other antibiotic agents; G47.33 Obstructive sleep apnea (adult) (pediatric)
CPT/HCPCS: 36415; 36569; 71045; 72170; 73502; 76937; 80048; 80053; 80202; 81001; 82565; 83036; 85014; 85018; 85025; 85610; 85652; 86141; 86703; 86850; 86900; 86901; 87040; 87070; 87075; 87081; 87205; 93005; 97110; 97116; 97163; 97530; A4565; G0378; J0131; J0690; J1100; J1885; J2250; J2405; J2470; J2704; J3490